=== PATIENT | male | born 1990 | race Hispanic/Latino ===

== ENCOUNTER 2024-11-05 13:55 | Emergency (ER) | payer OTHER, SELFPAY ==
--- NOTE | ~2024-11-05 | CT_ITS ---
EXAMINATION: CT brain wo con DATE: 11/05/2024 14:26 INDICATION: Vision change. Blurry vision. TECHNIQUE: Computed tomography (CT) of the head was performed without intravenous contrast. The mA wa s adjusted according to patient size. Iterative reconstruction technique was employed. The dose-lengt h product was 605.33 mGy-cm. COMPARISON: None FINDINGS: There is no intracranial hemorrhage, acute infarction, or abnormal intracranial mass lesion . The ventricles are normal in size. The orbits are normal. The paranasal sinuses are clear. The mast oid air cells are normal. IMPRESSION: 1. Normal brain. Reviewed, dictated and finalized at location A. DRESSER IMPRESSION: 1. Normal brain.
[2024-11-05 13:59] VITALS: BP 145/56; PULSE 75; RESP 18; TEMP 36.9; O2SAT 99
--- NOTE | 2024-11-05 14:21 | ED.GENADULT ---
HPI - General Adult General Chief complaint: Neuro Symptoms/Deficit Stated complaint: Double vision/lost peripheral vision Time Seen by Provider: 11/05/24 14:07 History of Present Illness HPI narrative: 34-year-old male presenting to the emergency department for evaluation for some vision changes. Patient reports a few weeks ago he fell in his kitchen struck his head and never got evaluated. Patient states today while he was riding an the liver he had some loss of left-sided peripheral vision that lasted about 15 minutes and then resolved. Patient states his vision is back to baseline now patient denies any associated numbness weakness. Patient has no prior history of CVA. Patient denies any current complaints. Patient states he was concern about the vision change in want to make sure was not related to the head trauma. Related Data Allergies Allergy/AdvReac Type Severity Reaction Status Date / Time No Known Allergies Allergy Verified 11/05/24 14:03 Review of Systems Review of Systems: All systems reviewed & are unremarkable except as noted in HPI and below Exam Narrative: APPEARANCE: Well appearing, no pain, no distress, well-nourished. HEAD: normocephalic, atraumatic. EYES: PERRLA/EOMI, conjunctivae clear. NOSE: Normal no drainage EARS:TMS clear with good light reflex. THROAT: Pharynx clear, no exudate. NECK: Supple. No adenopathy, no masses. RESPIRATORY: Airway patent, respirations nonlabored. Clear to auscultation bilaterally, no rales, rhonchi, wheezing. CARDIOVASCULAR: Regular rate and rhythm without murmurs rubs or gallops. ABDOMINAL: Soft, nontender, nondistended, normal bowel sounds MUSCULOSKELETAL: Moves all extremities. Strength/ROM intact, No edema, No calf tenderness. NEURO: Alert. Cranial nerves II through XII intact. 20/20 vision, no loss of peripheral vision, intact neuro exam SKIN: Warm, dry. Normal Color Course Vital Signs Vital signs: Vital Signs Temperature 98.4 F 11/05/24 13:59 Pulse Rate 75 11/05/24 13:59 Respiratory Rate 18 11/05/24 13:59 Blood Pressure 145/56 H 11/05/24 13:59 Pulse Oximetry 99 11/05/24 13:59 Oxygen Delivery Room Air 11/05/24 13:59 Temperature 98.4 F 11/05/24 13:59 Pulse Rate 75 11/05/24 13:59 Respiratory Rate 18 11/05/24 13:59 Blood Pressure 145/56 H 11/05/24 13:59 Pulse Oximetry 99 11/05/24 13:59 Oxygen Delivery Room Air 11/05/24 13:59 Medical Decision Making MDM Narrative Medical decision making narrative: 34-year-old male presenting to the emergency department for evaluation for resolved vision changes. Patient did have a previous head injury so a head CT was ordered. Head CT was negative. Patient remains back at his baseline with no neuro deficit. Differential Diagnosis Differential Diagnosis: Subdural hematoma, subarachnoid hemorrhage, concussion Vital Signs Vital Signs: Vital Signs Temperature 98.4 F 11/05/24 13:59 Pulse Rate 75 11/05/24 13:59 Respiratory Rate 18 11/05/24 13:59 Blood Pressure 145/56 H 11/05/24 13:59 Pulse Oximetry 99 11/05/24 13:59 Oxygen Delivery Room Air 11/05/24 13:59 Temperature 98.4 F 11/05/24 13:59 Pulse Rate 75 11/05/24 13:59 Respiratory Rate 18 11/05/24 13:59 Blood Pressure 145/56 H 11/05/24 13:59 Pulse Oximetry 99 11/05/24 13:59 Oxygen Delivery Room Air 11/05/24 13:59 Imaging Data Radiologist's impression: Impressions Head CT 11/05/24 15:03 IMPRESSION: 1. Normal brain. Discharge Plan Discharge Clinical Impression: Change in vision Patient Disposition: Home, Self-Care Condition: Stable Instructions: Antibiotic Form Additional Instructions: Have close follow-up with your primary care physician. If you have any worsening symptoms then please call or return to the emergency department. Patient Language: Slovak Follow-up/Referrals: PHYSICIAN NOT ON STAFF,NONSTAFF [Non-Staff] -
--- OUTSIDE RECORDS SUMMARY | 2024-11-12 16:11 | XMS_ITS | Continuity of Care Document ---
Author Organization [place] - [facility], [facility] Address [address] [place] [address] Care Team Providers Care Post Office Manager Name Role Phone FAZALMEDARDODALIAMarita TATYANA Primary Care Provider Assessment No assessment recorded. Plan of Treatment Reminders Order Date Submit Date Provider Last Modified By Organization Details Last Modified Time Details Appointments Allerg y Shot 2024 01:40P M Allergy Shots @ [address] [facility] Not available Not available Not available New Patien t Visit 2024 09:00A M Demond Lamar MD Not available Not available Not available Allerg y Shot 2024 04:10P M Allergy Shots @ [address] [facility] Not available Not available Not available Allerg y Shot 2024 01:20P M Allergy Shots @ [address] [facility] Not available Not available Not available Allerg y Shot 2024 03:10P M Allergy Shots @ [address] [facility] Not available Not available Not available Office Visit 2024 03:30P M Eliot Ibarra MD Not available Not available Not available Allerg y Shot 2024 09:40A M Allergy Shots @ [address] [place] Not available Not available Not available Allerg y Shot 2024 03:00P M Allergy Shots @ [address] [place] Not available Not available Not available Allerg y Shot 2024 09:50A M [facility] @ [address] [facility] [place] Not available Not available Not available Lab None record ed. Referral None record ed. Procedures None record ed. Surgeries None record ed. Imaging None record ed. Medication Orders None record ed. Patient TargetsNo targets recorded. Patient InstructionsNo instructions recorded. Reason for Referral None Reported. Problems Name Problem SNOMED Code Status Onset Date Resolution Date Notes Provider Name and Address Organization Details Recorded Time Asthma [id number] Active 022 DEAN Olvera - [facility] 07/30/2022 13:35:40 Problem Notes None recorded. Procedures Surgical History Date Name Laterality Status Provider Name and Address Organization Details Recorded Time 4 Allergy Injection, Recipe completed Nayeli Ratti [place] - [facility] 11/11/2024 13:16:43 4 [place] Allergy Injection, Maintenance, Subsequent Vial, 1 Vial completed Nayeli Ratti [place] - [facility] 11/11/2024 13:19:30 4 Allergy Injection, Recipe completed Nayeli Ratti [place] - [facility] 10/31/2024 13:21:02 4 [place] Allergy Injection, Maintenance, Subsequent Vial, 1 Vial completed Nayeli Ratti [place] - [facility] 10/31/2024 13:24:32 4 Allergy Injection, Recipe completed Caryl Villatoro [place] - [facility] 10/23/2024 14:58:47 4 [place] Allergy Injection, Maintenance, Subsequent Vial, 1 Vial completed Caryl Villatoro [place] - [facility] 10/23/2024 14:59:20 4 Allergy Injection, Recipe completed Gelnn Bhalodia [place] - [facility] 10/15/2024 09:14:08 4 [place] Allergy Injection, Maintenance, Subsequent Vial, 1 Vial completed Glenn Bhalodia [place] - [facility] 10/15/2024 09:16:58 4 Allergy Injection, Recipe completed Caryl Villatoro [place] [facility] 10/02/2024 13:45:06 4 [place] Allergy Injection, Maintenance, Subsequent Vial, 1 Vial completed Caryl Villatoro [place] [facility] 10/02/2024 13:58:38 4 Allergy Injection, Build-up, Initial/New Vial completed Nayeli Ratti [place] - [facility] 09/22/2024 13:22:19 4 Allergy Injection, Recipe completed Nayeli Ratti [place] [facility] 09/22/2024 13:22:19 4 [place] Allergy Injection, Maintenance, Subsequent Vial, 1 Vial completed Nayeli Ratti [place] [facility] 09/22/2024 13:25:00 4 Allergy Injection, Build-up, Initial/New Vial completed Nayeli Ratti [place] - [facility] 09/08/2024 13:14:11 4 Allergy Injection, Recipe completed Nayeli Ratti [place] [facility] 09/08/2024 13:14:11 4 [place] Allergy Injection, Maintenance, Subsequent Vial, 1 Vial completed Nayeli Ratti [place] [facility] 09/08/2024 13:17:01 4 Allergy Injection, Build-up, Initial/New Vial completed Glenn Bhalodia [place] - [facility] 09/03/2024 15:01:22 4 Allergy Injection, Recipe completed Glenn Bhalodia [place] [facility] 09/03/2024 15:01:22 4 [place] Allergy Injection, Maintenance, Subsequent Vial, 1 Vial completed Glenn Bhalodia [place] [facility] 09/03/2024 15:01:45 4 Allergy Injection, Build-up, Initial/New Vial completed Glenn Bhalodia [place] [facility] 08/27/2024 13:47:20 4 Allergy Injection, Recipe completed Glenn Bhalodia [place] - [facility] 08/27/2024 13:47:20 4 [place] Allergy Injection, Maintenance, Subsequent Vial, 1 Vial completed Glenn Bhalodia [place] - [facility] 08/27/2024 13:51:25 4 Allergy Injection, Build-up, Initial/New Vial completed Caryljaun Villatoro [place] - [facility] 08/22/2024 13:10:46 4 Allergy Injection, Recipe completed Caryl Villatoro [place] [facility] 08/22/2024 13:10:46 4 [place] Allergy Injection, Maintenance, Subsequent Vial, 1 Vial completed Caryl Villatoro [place] [facility] 08/22/2024 13:15:34 4 Allergy Injection, Build-up, Initial/New Vial completed Nayeli Ratti [place] [facility] 08/15/2024 13:14:33 4 Allergy Injection, Recipe completed Nayeli Ratti [place] [facility] 08/15/2024 13:14:33 4 [place] Allergy Injection, Maintenance, Subsequent Vial, 1 Vial completed Nayeli Ratti [place] [facility] 08/15/2024 13:18:25 4 Allergy Injection, Build-up, Initial/New Vial completed Nayeli Ratti [place] [facility] 08/08/2024 13:14:58 4 Allergy Injection, Recipe completed Nayeli Ratti [place] [facility] 08/08/2024 13:14:58 4 [place] Allergy Injection, Maintenance, Subsequent Vial, 1 Vial completed Nayeli Ratti [place] [facility] 08/08/2024 13:26:51 4 Allergy Injection, Build-up, Initial/New Vial completed Dayana Zipse [place] [facility] 07/29/2024 17:07:44 4 Allergy Injection, Recipe completed Dayana Zipse [place] [facility] 07/29/2024 17:08:27 4 [place] Allergy Injection, Maintenance, Subsequent Vial, 1 Vial completed Dayana Zipse [place] [facility] 07/29/2024 17:11:29 4 Allergy Injection, Build-up, Initial/New Vial completed Nayeli Ratti [place] [facility] 07/25/2024 13:00:11 4 Allergy Injection, Recipe completed Nayeli Ratti [place] [facility] 07/25/2024 12:54:22 4 Allergy Injection, Build-up, Initial/New Vial completed Nayeli Ratti [place] [facility] 07/17/2024 15:03:24 4 Allergy Injection, Recipe completed Nayeli Ratti [place] [facility] 07/17/2024 15:00:09 4 Allergy Injection, Build-up, Initial/New Vial completed Pieter Noel [place] [facility] 07/10/2024 14:01:31 4 Allergy Injection, Recipe completed Pieter Noel [place] [facility] 07/10/2024 13:58:56 4 Allergy Injection, Build-up, Initial/New Vial completed Nayeli Ratti [place] [facility] 07/03/2024 15:09:04 4 Allergy Injection, Recipe completed Nayeli Ratti [place] [facility] 07/03/2024 15:04:59 4 Allergy Injection, Build-up, Initial/New Vial completed Nayeli Ratti [place] [facility] 06/02/2024 13:13:08 4 Allergy Injection, Recipe completed Nayeli Ratti [place] [facility] 06/02/2024 13:06:17 4 Allergy Injection, Build-up, Initial/New Vial completed Nayeli Ratti [place] [facility] 05/30/2024 13:23:20 4 Allergy Injection, Recipe completed Nayeli Ratti [place] [facility] 05/30/2024 13:19:58 4 Allergy Injection, Build-up, Initial/New Vial completed Nayeli Ratti [place] [facility] 05/22/2024 09:53:48 4 Allergy Injection, Recipe completed Nayeli Ratti [place] [facility] 05/22/2024 09:50:32 4 Allergy Injection, Build-up, Initial/New Vial completed Nayeli Ratti [place] [facility] 05/08/2024 10:10:23 4 Allergy Injection, Recipe completed Nayeli Ratti [place] [facility] 05/08/2024 10:07:32 4 Allergy Injection, Build-up, Initial/New Vial completed Nayeli Ratti [place] [facility] 05/01/2024 10:55:39 4 Allergy Injection, Recipe completed Nayeli Ratti [place] [facility] 05/01/2024 10:53:00 4 Allergy Injection, Build-up, Initial/New Vial completed Nayeli Ratti [place] [facility] 04/15/2024 13:32:21 4 Allergy Injection, Recipe completed Nayeli Ratti [place] [facility] 04/15/2024 13:29:48 4 Allergy Injection, Build-up, Initial/New Vial completed Nayeli Ratti [place] [facility] 04/10/2024 09:41:47 4 Allergy Injection, Recipe completed Nayeli Ratti [place] [facility] 04/10/2024 09:39:04 4 Allergy Injection, Build-up, Initial/New Vial completed Glenn Bhalodia [place] [facility] 04/02/2024 08:51:41 4 Allergy Injection, Recipe completed Glenn Bhalodia [place] [facility] 04/02/2024 08:49:01 4 Allergy Injection, Build-up, Initial/New Vial completed Nayeli Ratti [place] [facility] 03/24/2024 15:27:16 4 Allergy Injection, Recipe completed Nayeli Ratti [place] [facility] 03/24/2024 15:19:09 4 Allergy Injection, Build-up, Initial/New Vial completed Nayeli Ratti [place] [facility] 03/13/2024 09:45:22 4 Allergy Injection, Recipe completed Nayeli Ratti [place] [facility] 03/13/2024 09:41:07 4 Allergy Injection, Build-up, Initial/New Vial completed Glenn Bhalodia [place] [facility] 03/05/2024 08:47:21 4 Allergy Injection, Recipe completed Lgenn Bhalodia [place] [facility] 03/05/2024 08:41:42 4 Allergy Injection, Build-up, Initial/New Vial completed Aidee Abel [place] - [facility] 02/28/2024 09:37:48 4 Allergy Injection, Recipe completed Nayeli Ratti [place] [facility] 02/28/2024 09:34:24 4 Allergy Injection, Build-up, Initial/New Vial completed Glenn Bhalodia [place] [facility] 02/20/2024 08:12:30 4 Allergy Injection, Recipe completed Glenn Bhalodia [place] [facility] 02/20/2024 08:05:30 4 Allergy Injection, Build-up, Initial/New Vial completed Glenn Bhalodia [place] [facility] 02/06/2024 08:38:48 4 Allergy Injection, Recipe completed Glenn Bhalodia [place] [facility] 02/06/2024 08:35:01 4 Allergy Injection, Build-up, Initial/New Vial completed Tyler Rollins [place] [facility] 01/31/2024 12:26:22 4 Allergy Injection, Recipe completed Aidee Hernandez Ratti [place] - [facility] 01/31/2024 09:38:12 4 Allergy Injection, Build-up, Initial/New Vial completed Glenn Bhalodia [place] [facility] 01/24/2024 09:48:10 4 Allergy Injection, Recipe completed Glenn Bhalodia [place] [facility] 01/24/2024 09:42:59 4 Allergy Injection, Build-up, Initial/New Vial completed Maldonado Escalante [place] [facility] 01/17/2024 09:40:31 4 Allergy Injection, Recipe completed Maldonado Kashifeter [place] - [facility] 01/17/2024 09:36:01 4 Allergy Injection, Build-up, Initial/New Vial completed Caryl Villatoro [place] [facility] 01/10/2024 14:08:44 4 Allergy Injection, Recipe completed Caryl Villatoro [place] [facility] 01/10/2024 14:06:57 4 Allergy Injection, Build-up, Initial/New Vial completed Glenn Bhalodia [place] [facility] 12/27/2023 09:55:42 4 Allergy Injection, Recipe completed Glenn Bhalodia [place] [facility] 12/27/2023 09:50:02 4 Allergy Injection, Build-up, Initial/New Vial completed Glenn Bhalodia [place] [facility] 12/18/2023 13:36:05 4 Allergy Injection, Recipe completed Glenn Bhalodia [place] [facility] 12/18/2023 13:32:01 4 Allergy Injection, Build-up, Initial/New Vial completed Glenn Bhalodia [place] [facility] 12/12/2023 08:45:41 4 Allergy Injection, Recipe completed Glenn Bhalodia [place] [facility] 12/12/2023 08:41:45 4 Allergy Injection, Build-up, Initial/New Vial completed Caryl Villatoro [place] - [facility] 12/06/2023 09:46:16 4 Allergy Injection, Recipe completed Caryl Villatoro [place] - [facility] 12/06/2023 09:45:47 4 Allergy Injection, Build-up, Initial/New Vial completed Glenn Bhalodia [place] - [facility] 11/29/2023 09:37:17 4 Allergy Injection, Recipe completed Glenn Bhalodia [place] - [facility] 11/29/2023 09:32:56 4 Allergy Injection, Build-up, Initial/New Vial completed Caryl Villatoro [place] [facility] 11/22/2023 10:28:27 4 Allergy Injection, Recipe completed Caryl Duranllana [place] - [facility] 11/22/2023 10:26:36 4 Allergy Injection, Build-up, Initial/New Vial completed Caryl Duranllana [place] - [facility] 11/15/2023 15:37:47 4 Allergy Injection, Recipe completed Caryl Duranllana [place] - [facility] 11/15/2023 15:31:59 3 Allergy Injection, Build-up, Initial/New Vial completed Dayana MORAN - [facility] 10/30/2023 18:27:24 3 Allergy Injection, Recipe completed Dayana Valle [place] - [facility] 10/30/2023 18:26:31 1 Other completed Malvin MOR[place] - [facility] 10/18/2023 10:17:32 Imaging Results None recorded. Procedure Notes None recorded. Medical Equipment None Reported. Allergies No known drug allergies Medications Name Sig Start Date Stop Date Status Note LastModified by Organization Details LastModified Time prednisone 10 mg tablet active Not Available Not Available Not Available famotidine 40 mg tablet active Not Available Not Available Not Available prednisone 20 mg tablet Take 2 tablets every day by oral route for 5 days. 2021 active Not Available Not Available Not Avai lable Advair Diskus 100 mcg-50 mcg/dose powder for inhalation Inhale 1 puff twice a day by inhalation route for 14 days. 2021 active Not Available Not Available Not Avai lable methylpredni solone 4 mg tablets in a dose pack active Not Available Not Available No t Available albuterol sulfate HFA 90 mcg/actuatio n aerosol inhaler Inhale 2 puffs every 4 hours by inhalation route as needed. active Not Available Not Available No t Available albuterol sulfate active Not Available Not Available Not Available Advair HFA 115 mcg-21 mcg/actuatio n aerosol inhaler active Not Available Not Available Not Available Vitals None Recorded Social History Question Answer Notes LastModified by Organizat ion Details LastModified Time Tobacco Smoking Status Never Smoker DEAN Olvera - [facility] 07/30/2022 13:35:51 Do You Or Have You Ever Used E-cigarettes Or Vape? 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 Yes [email or web address] Information not available 10/18/2023 Cesar In Bedroom Bare Floor [email or web address] Information not available 10/18/2023 Pillows In Bedroom Synthetic [email or web address] Information not available 10/18/2023 Mattress Foam [email or web address] Information no t available 10/18/2023 Cesar In Rest Of House Hard Wood [email or web address] Information not available 10/18/2023 Do You Or Have You Ever Used Any Other Forms Of Tobacco Or Nicotine? No Information not available 10/18/2023 Sex: Unknown Functional Status None recorded. Mental Status None recorded. Family History Nothing Reported. Medical History No medical history recorded. Past Encounters Encounter ID Performer Location Encounter Start Date Encounter Closed Date Diagnosis/Indication Diagnosis SNOMED-CT Code Diagnosis ICD10 Code [id number] Eliot Ibarra MD [place] [facility] [address] [place] [address],[address] [place] [id number] 10/02/2024 13:43:22 10/03/2024 11:02:17 Allergic rhinitis caused by pollen 74073514 J30.1 Allergic r hinitis caused by animal dander 948800991 J30.81 [id number] Fifi Rocha MD [place] [address] [place] [address],[address] [place] [id number] 1 10/15/2024 09:07:15 10/15/2024 10:43:34 Allergic rhinitis caused by pollen 78297987 J30.1 Allergic r hinitis caused by animal dander 718687342 J30.81 [id number] Eliot Ibarra MD [facility] [place] [address],[address] [place] [address] 10/23/2024 14:53:48 10/24/2024 11:41:57 Allergic rhinitis caused by pollen 35375376 J30.1 Allergic r hinitis caused by animal dander 836900504 J30.81 [id number] Fifi Rocha MD [place] [address] [place] [address],[address] [place] [address] 10/31/2024 13:18:13 10/31/2024 14:03:29 Allergic rhinitis caused by pollen 40227993 J30.1 Allergic r hinitis caused by animal dander 873949937 J30.81 Health Concerns Section Related Observation LastModified by Organization Detai ls LastModified Time None Recorded Concern Status LastModified by Organization Details LastModified Time None Recorded Payers Encounter Date Sequence Insurance Name Policy Number Policy Gaspar Covered Member ID Gaspar Member ID Guarantor Name 10/31/2024 1 [employer] - CHOICE (POS II) [id number] Augustus Heaton [id number] Augustus Heaton
--- OUTSIDE RECORDS SUMMARY | 2024-11-12 16:11 | XMS_ITS | Data Portability ---
Author Organization [place] - .[facility], [facility] Address [address] [place] [address] Care Team Providers Care Veneer Taper Name Role Phone FAZALMEDARDODALIAMarita TATYANA Primary Care Provider Assessment No assessment recorded. Plan of Treatment Reminders Order Date Submit Date Provider Last Modified By Organization Details Last Modified Time Details Appointments Allerg y Shot 2024 01:40P M Allergy Shots @ [address] [place] Not available Not available Not available New Patien t Visit 2024 09:00A M Demond Lamar MD Not available Not available Not available Allerg y Shot 2024 04:10P M Allergy Shots @ [address] [place] Not available Not available Not available Allerg y Shot 2024 01:20P M Allergy Shots @ [address] [place] Not available Not available Not available Allerg y Shot 2024 03:10P M Allergy Shots @ [address] [place] Not available Not available Not available Office Visit 2024 03:30P M Eliot Ibarar MD Not available Not available Not available Allerg y Shot 2024 09:40A M Allergy Shots @ [address] [place] Not available Not available Not available Allerg y Shot 2024 03:00P M Allergy Shots @ [address] [place] Not available Not available Not available Allerg y Shot 2024 09:50A M Allergy Shots @ [address] [place] Not available Not available Not available Lab [...] and Address Organization Details Recorded Time Asthma [id number] Active 022 DEAN Olvera - .[facility] 07/30/2022 13:35:40 Problem Notes None recorded. Procedures Surgical History Date Name Laterality Status Provider Name and Address Organization Details Recorded Time 4 Allergy Injection, Recipe completed Nayeli Ratti [place] - .[facility] 11/11/2024 13:16:43 4 [place] Allergy Injection, Maintenance, Subsequent Vial, 1 Vial completed [place]ayeli Ratti [place] - .[facility] 11/11/2024 13:19:30 4 Allergy Injection, Recipe completed [place]ayeli [place]atti [place] - [place] 10/31/2024 13:21:02 4 [place] Allergy Injection, Maintenance, Subsequent Vial, 1 Vial completed [place]ayeli Ratti [place] - [place] 10/31/2024 13:24:32 4 Allergy Injection, Recipe completed Caryl Villatoro [place] - .[facility] 10/23/2024 14:58:47 4 [place] Allergy Injection, Maintenance, Subsequent Vial, 1 Vial completed Caryl Villatoro [place] 10/23/2024 14:59:20 4 Allergy Injection, Recipe completed Glenn Bhalodia [place] - .[facility] 10/15/2024 09:14:08 4 [place] Allergy Injection, Maintenance, Subsequent Vial, 1 Vial completed Glenn Bhalodia [place] - .[facility] 10/15/2024 09:16:58 4 Allergy Injection, Recipe completed Caryl Villatoro [place] - [place] 10/02/2024 13:45:06 4 [place] Allergy Injection, Maintenance, Subsequent Vial, 1 Vial completed Caryl Villatoro [place] 10/02/2024 13:58:38 4 Allergy Injection, Build-up, Initial/New Vial completed [place]ayeli Ratti [place] - .[facility] 09/22/2024 13:22:19 4 Allergy Injection, Recipe completed [place]ayeli Ratti [place] 09/22/2024 13:22:19 4 [place] Allergy Injection, Maintenance, Subsequent Vial, 1 Vial completed [place]ayeli Ratti [place] 09/22/2024 13:25:00 4 Allergy Injection, Build-up, Initial/New Vial completed [place]ayeli Ratti [place] 09/08/2024 13:14:11 4 Allergy Injection, Recipe completed [place]ayeli [place]atti [place] 09/08/2024 13:14:11 4 [place] Allergy Injection, Maintenance, Subsequent Vial, 1 Vial completed [place]ayeli Ratti [place] 09/08/2024 13:17:01 4 Allergy Injection, Build-up, Initial/New Vial completed Glenn Bhalodia [place] - [place] 09/03/2024 15:01:22 4 Allergy Injection, Recipe completed Glenn Bhalodia [place] - [place] 09/03/2024 15:01:22 4 [place] Allergy Injection, Maintenance, Subsequent Vial, 1 Vial completed Glenn Bhalodia [place] 09/03/2024 15:01:45 4 Allergy Injection, Build-up, Initial/New Vial completed Glenn Bhalodia [place] - [place] 08/27/2024 13:47:20 4 Allergy Injection, Recipe completed Glenn Bhalodia [place] - [place] 08/27/2024 13:47:20 4 [place] Allergy Injection, Maintenance, Subsequent Vial, 1 Vial completed Glenn Bhalodia [place] 08/27/2024 13:51:25 4 Allergy Injection, Build-up, Initial/New Vial completed Caryl Villatoro [place] 08/22/2024 13:10:46 4 Allergy Injection, Recipe completed Caryl Villatoro [place] 08/22/2024 13:10:46 4 [place] Allergy Injection, Maintenance, Subsequent Vial, 1 Vial completed Caryl Villatoro [place] 08/22/2024 13:15:34 4 Allergy Injection, Build-up, Initial/New Vial completed [place]ayeli Ratti [place] 08/15/2024 13:14:33 4 Allergy Injection, Recipe completed [place]ayeli R[place] 08/15/2024 13:14:33 4 [place] Allergy Injection, Maintenance, Subsequent Vial, 1 Vial completed [place]ayeli [place]atti [place] 08/15/2024 13:18:25 4 Allergy Injection, Build-up, Initial/New Vial completed [place]ayeli Ratti [place] 08/08/2024 13:14:58 4 Allergy Injection, Recipe completed [place]ayeli Ratti [place] 08/08/2024 13:14:58 4 [place] Allergy Injection, Maintenance, Subsequent Vial, 1 Vial completed [place]ayeli Ratti [place] 08/08/2024 13:26:51 4 Allergy Injection, Build-up, Initial/New Vial completed Dayana Zipse [place] 07/29/2024 17:07:44 4 Allergy Injection, Recipe completed Dayana Zipse [place] 07/29/2024 17:08:27 4 [place] Allergy Injection, Maintenance, Subsequent Vial, 1 Vial completed Dayana Zipse [place] 07/29/2024 17:11:29 4 Allergy Injection, Build-up, Initial/New Vial completed [place]ayeli [place]atti [place] 07/25/2024 13:00:11 4 Allergy Injection, Recipe completed [place]ayeli [place] 07/25/2024 12:54:22 4 Allergy Injection, Build-up, Initial/New Vial completed [place]eli [place] 07/17/2024 15:03:24 4 Allergy Injection, Recipe completed [place]ay[place] Ratti [place] 07/17/2024 15:00:09 4 Allergy Injection, Build-up, Initial/New Vial completed Pieter Noel [place] 07/10/2024 14:01:31 4 Allergy Injection, Recipe completed Pieter Noel [place] 07/10/2024 13:58:56 4 Allergy Injection, Build-up, Initial/New Vial completed [place]eli [place] 07/03/2024 15:09:04 4 Allergy Injection, Recipe completed [place]ayeli [place]atti [place] 07/03/2024 15:04:59 4 Allergy Injection, Build-up, Initial/New Vial completed [place]ayeli [place] 06/02/2024 13:13:08 4 Allergy Injection, Recipe completed [place]ayeli Ratti [place] 06/02/2024 13:06:17 4 Allergy Injection, Build-up, Initial/New Vial completed [place]ayeli [place]atti [place] 05/30/2024 13:23:20 4 Allergy Injection, Recipe completed [place]ayeli Ratti [place] 05/30/2024 13:19:58 4 Allergy Injection, Build-up, Initial/New Vial completed [place]ayeli [place] 05/22/2024 09:53:48 4 Allergy Injection, Recipe completed [place]ayeli [place] 05/22/2024 09:50:32 4 Allergy Injection, Build-up, Initial/New Vial completed [place]ayeli Ratti [place] 05/08/2024 10:10:23 4 Allergy Injection, Recipe completed [place]ayeli R[place] 05/08/2024 10:07:32 4 Allergy Injection, Build-up, Initial/New Vial completed [place]ayeli [place] 05/01/2024 10:55:39 4 Allergy Injection, Recipe completed [place]ayeli [place]atti [place] 05/01/2024 10:53:00 4 Allergy Injection, Build-up, Initial/New Vial completed [place]ayeli [place] 04/15/2024 13:32:21 4 Allergy Injection, Recipe completed [place]ayeli [place]atti [place] 04/15/2024 13:29:48 4 Allergy Injection, Build-up, Initial/New Vial completed [place]ayeli [place] 04/10/2024 09:41:47 4 Allergy Injection, Recipe completed [place]ayeli [place] 04/10/2024 09:39:04 4 Allergy Injection, Build-up, Initial/New Vial completed Glenn Bhalodia [place] 04/02/2024 08:51:41 4 Allergy Injection, Recipe completed Glenn Bhalodia [place] - [place] 04/02/2024 08:49:01 4 Allergy Injection, Build-up, Initial/New Vial completed [place]ayeli [place] 03/24/2024 15:27:16 4 Allergy Injection, Recipe completed [place]ayeli Ratti [place] 03/24/2024 15:19:09 4 Allergy Injection, Build-up, Initial/New Vial completed [place]ayeli [place] 03/13/2024 09:45:22 4 Allergy Injection, Recipe completed [place]ayeli [place] 03/13/2024 09:41:07 4 Allergy Injection, Build-up, Initial/New Vial completed Glenn Bhalodia [place] - [place] 03/05/2024 08:47:21 4 Allergy Injection, Recipe completed Glenn Bhalodia [place] 03/05/2024 08:41:42 4 Allergy Injection, Build-up, Initial/New Vial completed [place] 02/28/2024 09:37:48 4 Allergy Injection, Recipe completed [place]ayeli [place]atti [place] 02/28/2024 09:34:24 4 Allergy Injection, Build-up, Initial/New Vial completed Glenn Bhalodia [place] - [place] 02/20/2024 08:12:30 4 Allergy Injection, Recipe completed Glenn Bhalodia [place] 02/20/2024 08:05:30 4 Allergy Injection, Build-up, Initial/New Vial completed Glenn Bhalodia [place] 02/06/2024 08:38:48 4 Allergy Injection, Recipe completed Glenn Bhalodia [place] 02/06/2024 08:35:01 4 Allergy Injection, Build-up, Initial/New Vial completed Tyler Rollins [place] - .[facility] 01/31/2024 12:26:22 4 Allergy Injection, Recipe completed [place]ayeli [place]atti [place] 01/31/2024 09:38:12 4 Allergy Injection, Build-up, Initial/New Vial completed Glenn Bhalodia [place] 01/24/2024 09:48:10 4 Allergy Injection, Recipe completed Glenn Bhalodia [place] - [place] 01/24/2024 09:42:59 4 Allergy Injection, Build-up, Initial/New Vial completed Maldonado Escalante [place] - .[facility] 01/17/2024 09:40:31 4 Allergy Injection, Recipe completed Maldonado Ava [place] - [place] 01/17/2024 09:36:01 4 Allergy Injection, Build-up, Initial/New Vial completed Caryl [place]atoro [place] 01/10/2024 14:08:44 4 Allergy Injection, Recipe completed Caryl Villatoro [place] 01/10/2024 14:06:57 4 Allergy Injection, Build-up, Initial/New Vial completed Glenn Bhalodia [place] 12/27/2023 09:55:42 4 Allergy Injection, Recipe completed Glenn Bhalodia [place] 12/27/2023 09:50:02 4 Allergy Injection, Build-up, Initial/New Vial completed Glenn Bhalodia [place] - [place] 12/18/2023 13:36:05 4 Allergy Injection, Recipe completed Glenn Bhalodia [place] - [place] 12/18/2023 13:32:01 4 Allergy Injection, Build-up, Initial/New Vial completed Glenn Bhalodia [place] - [place] 12/12/2023 08:45:41 4 Allergy Injection, Recipe completed Glenn Bhalodia [place] - [place] 12/12/2023 08:41:45 4 Allergy Injection, Build-up, Initial/New Vial completed Caryl [place]atoro [place] 12/06/2023 09:46:16 4 Allergy Injection, Recipe completed Caryl [place]atoro [place] 12/06/2023 09:45:47 4 Allergy Injection, Build-up, Initial/New Vial completed Glenn Bhalodia [place] - [place] 11/29/2023 09:37:17 4 Allergy Injection, Recipe completed Glenn Bhalodia [place] - [place] 11/29/2023 09:32:56 4 Allergy Injection, Build-up, Initial/New Vial completed Caryl Villatoro [place] 11/22/2023 10:28:27 4 Allergy Injection, Recipe completed Caryl Villatoro [place] - [place] 11/22/2023 10:26:36 4 Allergy Injection, Build-up, Initial/New Vial completed Caryl Villatoro [place] - [place] 11/15/2023 15:37:47 4 Allergy Injection, Recipe completed Caryl Villatoro [place] - [place] 11/15/2023 15:31:59 3 Allergy Injection, Build-up, Initial/New Vial completed Dayana MORAN - .[facility] 10/30/2023 18:27:24 3 Allergy Injection, Recipe completed Dayana MORAN - .[facility] 10/30/2023 18:26:31 1 Other completed Malvin MORAN - .[facility] 10/18/2023 10:17:32 Imaging Results None recorded. [...] Smoking Status Never Smoker DEAN Olvera - .[facility] 07/30/2022 13:35:51 Do You Or Have You Ever Used E-cigarettes Or Vape? 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 Yes Information not available 10/18/2023 Cesar In Bedroom Bare Floor [email or web address] Information not available 10/18/2023 Pillows In Bedroom Synthetic [email or web address] Information not available 10/18/2023 Mattress Foam [email or web address] Information no t available 10/18/2023 Cesar In Rest Of House Hard Wood Information not available 10/18/2023 Do You Or Have You Ever Used Any Other Forms Of Tobacco Or Nicotine? No Information not available 10/18/2023 Sex: Unknown Functional Status None recorded. Mental Status None recorded. Family History Nothing Reported. Medical History No medical history recorded. Past Encounters Encounter ID Performer Location Encounter Start Date Encounter Closed Date Diagnosis/Indication Diagnosis SNOMED-CT Code Diagnosis ICD10 Code [id number] Maxwell Oh MD [facility] [address] [address] 07/30/2022 13:14:09 07/30/2022 13:39:12 Asthma 101448843 J45.909 [id number] Eliot Ibarra MD [place] [facility] [address] [facility],[address] [place] [address] 10/18/2023 10:15:46 10/18/2023 16:19:35 Allergic asthma 577942849 J45.909 Allergic r hinitis caused by pollen 21629036 J30.1 [id number] Eliot Geronimoflchelle_5 [employer] [address] [facility],[address] [place] [id number] 1 10/24/2023 18:35:22 10/30/2023 18:15:52 [id number] Eliot Geronimoflchelle_5 [facility] [facility] [address] [facility],[address] [place] [id number] 1 11/15/2023 15:30:33 11/17/2023 08:56:03 [id number] Eliot Camara_5 [address] [address] [place] [address],[address] [place] [id number] 1 11/22/2023 10:23:21 11/23/2023 09:00:23 Allergic rhinitis caused by pollen [id number] J30.1 [id number] Eliot Camara_Sharon [employer] [address] [facility],[address] [place] [address] 11/29/2023 09:29:22 11/30/2023 11:21:58 Allergic rhinitis caused by pollen [id number] J30.1 [id number] Eliot Camara_5 [address] [address] [place] [address],[address] [place] [id number] 1 12/06/2023 09:27:31 12/07/2023 08:46:35 Allergic rhinitis caused by pollen 22948697 J30.1 [id number] Negra Geronimoflchelle_5 [employer] [address] [facility],[address] [place] [address] 12/12/2023 08:34:37 12/12/2023 10:28:09 Allergic rhinitis caused by pollen 89781765 J30.1 [id number] Negra Camara_5 [address] [address] [place] [address],[address] [place] [id number] 1 12/18/2023 13:18:23 12/18/2023 16:32:39 Allergic rhinitis caused by pollen 83111523 J30.1 [id number] Eliot Camara_5 [facility] [address] [facility],[address] [place] [address] 12/27/2023 09:47:11 12/27/2023 16:04:37 Allergic rhinitis caused by pollen 86195540 J30.1 [id number] Elito Robertson [employer] [address] [facility],[address] [place] [address] 01/10/2024 14:02:03 01/11/2024 08:16:01 Allergic rhinitis caused by pollen [id number] J30.1 [id number] Eliot Robertson [facility] [address] [facility],[address] [place] [id number] 1 01/17/2024 09:33:48 01/18/2024 09:44:41 Allergic rhinitis caused by pollen [id number] J30.1 [id number] Eliot Camara_Sharon [employer] [address] [facility],[address] [place] [id number] 1 01/24/2024 09:32:14 01/25/2024 08:48:43 Allergic rhinitis caused by pollen 39700588 J30.1 [id number] Eliot Camara_Sharon [employer] [address] [facility],[address] [place] [address] 01/31/2024 09:33:09 01/31/2024 12:29:36 Allergic rhinitis caused by pollen [id number] J30.1 [id number] Negra Camara_Sharon [employer] [address] [facility],[address] [place] [address] 02/06/2024 08:32:41 02/06/2024 13:32:49 Allergic rhinitis caused by pollen [id number] J30.1 [id number] Negra Kartan MD [place] [employer] [address] [facility] [place],[address] [address] 02/20/2024 08:01:33 02/20/2024 11:16:36 Allergic rhinitis caused by pollen 74908007 J30.1 [id number] Eliot Ibarra MD [place]5 [employer] [address] [facility],[address] [place] [id number] 1 02/28/2024 09:30:30 02/28/2024 10:10:13 Allergic rhinitis caused by pollen [id number] J30.1 [id number] Negra Camara_5 [employer] [address] [facility],[address] [place] [id number] 1 03/05/2024 08:37:07 03/05/2024 10:58:40 Allergic rhinitis caused by pollen [id number] J30.1 [id number] Luigi Camara_Sharon [employer] [address] [facility],[address] [place] [address] 03/13/2024 09:35:23 03/14/2024 08:05:11 Allergic rhinitis caused by pollen [id number] J30.1 [id number] Luigi Camara_Sharon [employer] [address] [facility],[address] [place] [address] 03/24/2024 15:11:17 03/25/2024 13:33:05 Allergic rhinitis caused by pollen [id number] J30.1 [id number] Negra Camara_5 [employer] [address] [facility],[address] [place] [address] 04/02/2024 08:43:44 04/02/2024 10:08:42 Allergic rhinitis caused by pollen [id number] J30.1 [id number] Luigi Camara_Sharon [employer] [address] [facility],[address] [place] [address] 04/10/2024 09:29:42 04/10/2024 10:59:56 Allergic rhinitis caused by pollen [id number] J30.1 [id number] Negra Slater MD [place]_5 [facility] [address] [facility],[address] [place] [id number] 1 04/15/2024 13:24:47 04/15/2024 14:08:03 Allergic rhinitis caused by pollen [id number] J30.1 [id number] Eliot Geronimoflchelle_5 [employer] [address] [facility],[address] [place] [id number] 1 05/01/2024 10:24:46 05/02/2024 11:29:31 Allergic rhinitis caused by pollen [id number] J30.1 [id number] Luigi Camara_Sharon [address] [address] [place] [address],[address] [place] [id number] 1 05/08/2024 10:02:46 05/09/2024 08:21:17 Allergic rhinitis caused by pollen [id number] J30.1 [id number] Eliot Geronimoflchelle_Sharon [employer] [address] [place] [address],[address] [place] [id number] 1 05/22/2024 09:39:09 05/22/2024 12:06:24 Allergic rhinitis caused by pollen [id number] J30.1 [id number] Luigi Camara_Sharon [address] [address] [place] [address],[address] [place] [id number] 1 05/30/2024 13:08:49 05/31/2024 08:30:39 Allergic rhinitis caused by pollen 92393515 J30.1 [id number] Luigi Camara_Sharon [address] [address] [place] [address],[address] [place] [id number] 1 06/02/2024 13:04:13 06/03/2024 08:46:13 Allergic rhinitis caused by pollen 34514812 J30.1 [id number] Luigi Camara_Sharon [facility] [address] [facility],[address] [address] 07/03/2024 15:01:37 07/04/2024 12:36:55 Allergic rhinitis caused by pollen 47701033 J30.1 [id number] Luigi Geronimoflchelle_5 [employer] [address] [facility],[address] [address] 07/10/2024 13:57:08 07/11/2024 09:16:17 Allergic rhinitis caused by pollen 58245030 J30.1 [id number] Luigi Camara_Sharon [employer] [address] [facility],[address] [place] [address] 07/17/2024 14:24:49 07/21/2024 12:20:09 Allergic rhinitis caused by pollen [id number] J30.1 [id number] Luigi Camara_Sharon [employer] [address] [facility],[address] [address] 07/25/2024 12:51:06 07/28/2024 10:45:55 Allergic rhinitis caused by pollen 72044615 J30.1 [id number] Eliot Geronimoflchelle_5 [employer] [address] [facility],[address] [place] [address] 07/29/2024 17:06:43 07/31/2024 08:55:49 [id number] Fifi Geronimoflchelle_Sharon [employer] [address] [facility],[address] [address] 08/08/2024 13:09:14 08/11/2024 11:43:54 Allergic rhinitis caused by pollen 06755145 J30.1 Allergic r hinitis caused by animal dander 188544153 J30.81 [id number] Luigi Geronimoflchelle_5 [employer] [address] [facility],[address] [address] 08/15/2024 13:08:06 08/18/2024 13:35:45 Allergic rhinitis caused by pollen 24956905 J30.1 Allergic r hinitis caused by animal dander 359249510 J30.81 [id number] Fifi Camara_5 [address] [address] [place] [address],[address] [place] [id number] 1 08/22/2024 13:07:02 08/23/2024 07:54:07 Allergic rhinitis caused by pollen 88296927 J30.1 Allergic r hinitis caused by animal dander [id number] J30.81 [id number] Fifi Camara_5 [address] [address] [place] [address],[address] [place] [id number] 1 08/27/2024 13:45:07 08/27/2024 14:54:56 Allergic rhinitis caused by pollen 94850502 J30.1 Allergic r hinitis caused by animal dander [id number] J30.81 [id number] Fifi Caamra_5 [address] [address] [place] [address],[address] [place] [id number] 1 09/03/2024 14:53:13 09/03/2024 15:23:03 Allergic rhinitis caused by pollen 44054147 J30.1 Allergic r hinitis caused by animal dander 411351244 J30.81 [id number] Luigi Camara_5 [address] [address] [place] [address],[address] [place] [id number] 1 09/08/2024 13:13:25 09/09/2024 08:35:19 Allergic rhinitis caused by pollen 96014925 J30.1 Allergic r hinitis caused by animal dander [id number] J30.81 [id number] Luigi Camara_5 [address] [address] [place] [address],[address] [place] [id number] 1 09/22/2024 13:19:36 09/22/2024 14:47:13 Allergic rhinitis caused by pollen 68512725 J30.1 Allergic r hinitis caused by animal dander [id number] J30.81 [id number] Eliot Camara_5 [employer] [address] [facility],[address] [place] [id number] 1 10/02/2024 13:43:22 10/03/2024 11:02:17 Allergic rhinitis caused by pollen [id number] J30.1 Allergic r hinitis caused by animal dander [id number] J30.81 [id number] Fifi Camara_Sharon 74[facility]A [facility] [address] [facility],[address] [place] [id number] 1 10/15/2024 09:07:15 10/15/2024 10:43:34 Allergic rhinitis caused by pollen 05874663 J30.1 Allergic r hinitis caused by animal dander 113350737 J30.81 [id number] Eliot Camara_5 74[facility] [address] [facility],[address] [place] [id number] 1 10/23/2024 14:53:48 10/24/2024 11:41:57 Allergic rhinitis caused by pollen 75773722 J30.1 Allergic r hinitis caused by animal dander 272414789 J30.81 [id number] Fifi Camara_Sharon 74[facility] [address] [facility],[address] [place] [id number] 1 10/31/2024 13:18:13 10/31/2024 14:03:29 Allergic rhinitis caused by pollen 77090286 J30.1 Allergic r hinitis caused by animal dander 730990539 J30.81 [id number] Eliot Camara_5 74[facility] [address] [facility],[address] [place] [id number] 1 11/11/2024 13:15:23 11/11/2024 13:15:46 Allergic rhinitis caused by pollen 56232547 J30.1 Allergic r hinitis caused by animal dander 536207654 J30.81 Health Concerns Section Related Observation LastModified by Organization Detai ls LastModified Time None Recorded Concern Status LastModified by Organization Details LastModified Time None Recorded Advance Directives Directive None Recorded Payers Encounter Date Sequence Insurance Name Policy Number Policy Gaspar Covered Member ID Gaspar Member ID Guarantor Name 10/02/2024 1 [employer] - CHOICE (POS II) [id number] Augustus Sudarshan [id number] Augustus Sudarshan 10/15/2024 1 [employer] - CHOICE (POS II) [id number] Augustus Sudarshan [id number] Augustus Sudarshan 10/23/2024 1 [employer] - CHOICE (POS II) [id number] Augustus Sudarshan [id number] Augustus Sudarshan 10/31/2024 1 [employer] - CHOICE (POS II) [id number] Augustus Sudarshan [id number] Augustus Sudarshan 11/11/2024 1 [employer] - CHOICE (POS II) [id number] Augustus Sudarshan [id number] Augustus Sudarshan
--- OUTSIDE RECORDS SUMMARY | 2024-11-12 16:12 | XMS_ITS | Continuity of Care Document ---
Author Organization [place] - .[facility], [place]_[facility] Address [address] [place] [address] Care Team Providers Care Commercial Loan Assistant Name Role Phone FAZALMEDARDODALIAMarita TATYANA Primary Care Provider Assessment No assessment recorded. Plan of Treatment Reminders Order Date Submit Date Provider Last Modified By Organization Details Last Modified Time Details Appointments Allerg y Shot 2024 01:40P M Allergy Shots @ [address] [facility] Not available Not available Not available New Patien t Visit 2024 09:00A M Demond Lamar MD Not available Not available Not available Allerg y Shot 2024 04:10P M Allergy Shots @ [address] [facility] Not available Not available Not available Allerg y Shot 2024 01:20P M Allergy Shots @ [address] [facility] Not available Not available Not available Allerg y Shot 2024 03:10P M Allergy Shots @ [address] [facility] Not available Not available Not available Office Visit 2024 03:30P M Eliot Ibarra MD Not available Not available Not available Allerg y Shot 2024 09:40A M Allergy Shots @ [address] [place] Not available Not available Not available Allerg y Shot 2024 03:00P M Allergy Shots @ [address] [place] Not available Not available Not available Allerg y Shot 2024 09:50A M Allergy Shots @ [address] [facility] [place] Not available Not available Not available Lab [...] and Address Organization Details Recorded Time Asthma [id number] Active 022 DEAN Olvera - .[facility] 07/30/2022 13:35:40 Problem Notes None recorded. Procedures Surgical History Date Name Laterality Status Provider Name and Address Organization Details Recorded Time 4 Allergy Injection, Recipe completed Nayeli Ratti [place] - .[facility] 11/11/2024 13:16:43 4 [place] Allergy Injection, Maintenance, Subsequent Vial, 1 Vial completed Nayeli Ratti [place] - .[facility] 11/11/2024 13:19:30 4 Allergy Injection, Recipe completed Nayeli Ratti [place] - .[facility] 10/31/2024 13:21:02 4 [place] Allergy Injection, Maintenance, Subsequent Vial, 1 Vial completed Nayeli Ratti [place] - .[facility] 10/31/2024 13:24:32 4 Allergy Injection, Recipe completed Caryl Villatoro [place] - .[facility] 10/23/2024 14:58:47 4 [place] Allergy Injection, Maintenance, Subsequent Vial, 1 Vial completed Caryl Villatoro [place] - .[facility] 10/23/2024 14:59:20 4 Allergy Injection, Recipe completed Glenn Bhalodia [place] - .[facility] 10/15/2024 09:14:08 4 [place] Allergy Injection, Maintenance, Subsequent Vial, 1 Vial completed Glenn Bhalodia [place] - .[facility] 10/15/2024 09:16:58 4 Allergy Injection, Recipe completed Caryl Villatoro [place] - .[facility] 10/02/2024 13:45:06 4 [place] Allergy Injection, Maintenance, Subsequent Vial, 1 Vial completed Caryl Villatoro [place] - [place] 10/02/2024 13:58:38 4 Allergy Injection, Build-up, Initial/New Vial completed Nayeli Ratti [place] - .[facility] 09/22/2024 13:22:19 4 Allergy Injection, Recipe completed Nayeli Ratti [place] - [place] 09/22/2024 13:22:19 4 [place] Allergy Injection, Maintenance, Subsequent Vial, 1 Vial completed Nayeli Ratti [place] - [place] 09/22/2024 13:25:00 4 Allergy Injection, Build-up, Initial/New Vial completed Nayeli Ratti [place] - .[facility] 09/08/2024 13:14:11 4 Allergy Injection, Recipe completed Nayeli Ratti [place] - [facility] 09/08/2024 13:14:11 4 [place] Allergy Injection, Maintenance, Subsequent Vial, 1 Vial completed Nayeli Ratti [place] - [place] 09/08/2024 13:17:01 4 Allergy Injection, Build-up, Initial/New Vial completed Glenn Bhalodia [place] - .[facility] 09/03/2024 15:01:22 4 Allergy Injection, Recipe completed Glenn Bhalodia [place] - .[facility] 09/03/2024 15:01:22 4 [place] Allergy Injection, Maintenance, Subsequent Vial, 1 Vial completed Glenn Bhalodia [place] - .[facility] 09/03/2024 15:01:45 4 Allergy Injection, Build-up, Initial/New Vial completed Glenn Bhalodia [place] - .[facility] 08/27/2024 13:47:20 4 Allergy Injection, Recipe completed Glenn Bhalodia [place] - .[facility] 08/27/2024 13:47:20 4 [place] Allergy Injection, Maintenance, Subsequent Vial, 1 Vial completed Glenn Bhalodia [place] - .[facility] 08/27/2024 13:51:25 4 Allergy Injection, Build-up, Initial/New Vial completed Caryljaun Villatoro [place] - .[facility] 08/22/2024 13:10:46 4 Allergy Injection, Recipe completed Caryl Villatoro [place] - [place] 08/22/2024 13:10:46 4 [place] Allergy Injection, Maintenance, Subsequent Vial, 1 Vial completed Caryl Villatoro [place] - [place] 08/22/2024 13:15:34 4 Allergy Injection, Build-up, Initial/New Vial completed Nayeli Ratti [place] - [place] 08/15/2024 13:14:33 4 Allergy Injection, Recipe completed Nayeli Ratti [place] - [place] 08/15/2024 13:14:33 4 [place] Allergy Injection, Maintenance, Subsequent Vial, 1 Vial completed Nayeli Ratti [place] 08/15/2024 13:18:25 4 Allergy Injection, Build-up, Initial/New Vial completed Nayeli Ratti [place] 08/08/2024 13:14:58 4 Allergy Injection, Recipe completed Nayeli Ratti [place] 08/08/2024 13:14:58 4 [place] Allergy Injection, Maintenance, Subsequent Vial, 1 Vial completed Nayeli Ratti [place] 08/08/2024 13:26:51 4 Allergy Injection, Build-up, Initial/New Vial completed Dayana Zipse [place] - .[facility] 07/29/2024 17:07:44 4 Allergy Injection, Recipe completed Dayana Zipse [place] - .[facility] 07/29/2024 17:08:27 4 [place] Allergy Injection, Maintenance, Subsequent Vial, 1 Vial completed Dayana Zipse [place] - .[facility] 07/29/2024 17:11:29 4 Allergy Injection, Build-up, Initial/New Vial completed Nayeli Ratti [place] 07/25/2024 13:00:11 4 Allergy Injection, Recipe completed Nayeli Ratti [place] - [place] 07/25/2024 12:54:22 4 Allergy Injection, Build-up, Initial/New Vial completed Nayeli Ratti [place] 07/17/2024 15:03:24 4 Allergy Injection, Recipe completed Nayeli Ratti [place] 07/17/2024 15:00:09 4 Allergy Injection, Build-up, Initial/New Vial completed Pieter Noel [place] - .[facility] 07/10/2024 14:01:31 4 Allergy Injection, Recipe completed Pieter Noel [place] - [place] 07/10/2024 13:58:56 4 Allergy Injection, Build-up, Initial/New Vial completed Nayeli Ratti [place] - [place] 07/03/2024 15:09:04 4 Allergy Injection, Recipe completed Nayeli Ratti [place] 07/03/2024 15:04:59 4 Allergy Injection, Build-up, Initial/New Vial completed Nayeli Ratti [place] 06/02/2024 13:13:08 4 Allergy Injection, Recipe completed Nayeli Ratti [place] 06/02/2024 13:06:17 4 Allergy Injection, Build-up, Initial/New Vial completed Nayeli Ratti [place] 05/30/2024 13:23:20 4 Allergy Injection, Recipe completed Nayeli Ratti [place] - [place] 05/30/2024 13:19:58 4 Allergy Injection, Build-up, Initial/New Vial completed Nayeli Ratti [place] - [place] 05/22/2024 09:53:48 4 Allergy Injection, Recipe completed Nayeli Ratti [place] - [place] 05/22/2024 09:50:32 4 Allergy Injection, Build-up, Initial/New Vial completed Nayeli Ratti [place] - [place] 05/08/2024 10:10:23 4 Allergy Injection, Recipe completed Nayeli Ratti [place] 05/08/2024 10:07:32 4 Allergy Injection, Build-up, Initial/New Vial completed Nayeli Ratti [place] - [place] 05/01/2024 10:55:39 4 Allergy Injection, Recipe completed Nayeli Ratti [place] - [place] 05/01/2024 10:53:00 4 Allergy Injection, Build-up, Initial/New Vial completed Nayeli Ratti [place] - [place] 04/15/2024 13:32:21 4 Allergy Injection, Recipe completed Nayeli Ratti [place] 04/15/2024 13:29:48 4 Allergy Injection, Build-up, Initial/New Vial completed Nayeli Ratti [place] - [place] 04/10/2024 09:41:47 4 Allergy Injection, Recipe completed Nayeli Ratti [place] 04/10/2024 09:39:04 4 Allergy Injection, Build-up, Initial/New Vial completed Glenn Bhalodia [place] - [place] 04/02/2024 08:51:41 4 Allergy Injection, Recipe completed Glenn Bhalodia [place] - [place] 04/02/2024 08:49:01 4 Allergy Injection, Build-up, Initial/New Vial completed Nayeli Ratti [place] 03/24/2024 15:27:16 4 Allergy Injection, Recipe completed Nayeli Ratti [place] 03/24/2024 15:19:09 4 Allergy Injection, Build-up, Initial/New Vial completed Nayeli Ratti [place] 03/13/2024 09:45:22 4 Allergy Injection, Recipe completed Nayeli Ratti [place] 03/13/2024 09:41:07 4 Allergy Injection, Build-up, Initial/New Vial completed Glenn Bhalodia [place] - [place] 03/05/2024 08:47:21 4 Allergy Injection, Recipe completed Glenn Bhalodia [place] - [place] 03/05/2024 08:41:42 4 Allergy Injection, Build-up, Initial/New Vial completed Aidee Abel [place] - [facility] 02/28/2024 09:37:48 4 Allergy Injection, Recipe completed Nayeli Ratti [place] 02/28/2024 09:34:24 4 Allergy Injection, Build-up, Initial/New Vial completed Glenn Bhalodia [place] - [place] 02/20/2024 08:12:30 4 Allergy Injection, Recipe completed Glenn Bhalodia [place] - [place] 02/20/2024 08:05:30 4 Allergy Injection, Build-up, Initial/New Vial completed Glenn Bhalodia [place] - [place] 02/06/2024 08:38:48 4 Allergy Injection, Recipe completed Glenn Bhalodia [place] - [place] 02/06/2024 08:35:01 4 Allergy Injection, Build-up, Initial/New Vial completed Tyler Rollins [place] - .[facility] 01/31/2024 12:26:22 4 Allergy Injection, Recipe completed Aidee Hernandez Ratti [place] - [facility] 01/31/2024 09:38:12 4 Allergy Injection, Build-up, Initial/New Vial completed Glenn Bhalodia [place] - [place] 01/24/2024 09:48:10 4 Allergy Injection, Recipe completed Glenn Bhalodia [place] - [facility] 01/24/2024 09:42:59 4 Allergy Injection, Build-up, Initial/New Vial completed Maldonado Escalante [place] - .[facility] 01/17/2024 09:40:31 4 Allergy Injection, Recipe completed Maldonado Kashifeter [place] - .[facility] 01/17/2024 09:36:01 4 Allergy Injection, Build-up, Initial/New Vial completed Caryl Villatoro [place] - [place] 01/10/2024 14:08:44 4 Allergy Injection, Recipe completed Caryl Villatoro [place] - [place] 01/10/2024 14:06:57 4 Allergy Injection, Build-up, Initial/New Vial completed Glenn Bhalodia [place] - [facility] 12/27/2023 09:55:42 4 Allergy Injection, Recipe completed Glenn Bhalodia [place] - [facility] 12/27/2023 09:50:02 4 Allergy Injection, Build-up, Initial/New Vial completed Glenn Bhalodia [place] - [place] 12/18/2023 13:36:05 4 Allergy Injection, Recipe completed Glenn Bhalodia [place] - [facility] 12/18/2023 13:32:01 4 Allergy Injection, Build-up, Initial/New Vial completed Glenn Bhalodia [place] - [facility] 12/12/2023 08:45:41 4 Allergy Injection, Recipe completed Glenn Bhalodia [place] - [place] 12/12/2023 08:41:45 4 Allergy Injection, Build-up, Initial/New Vial completed Caryl Villatoro [place] - [place] 12/06/2023 09:46:16 4 Allergy Injection, Recipe completed Caryl Villatoro [place] - [place] 12/06/2023 09:45:47 4 Allergy Injection, Build-up, Initial/New Vial completed Glenn Bhalodia [place] - [facility] 11/29/2023 09:37:17 4 Allergy Injection, Recipe completed Glenn Bhalodia [place] - [place] 11/29/2023 09:32:56 4 Allergy Injection, Build-up, Initial/New Vial completed Caryl Villatoro [place] - [place] 11/22/2023 10:28:27 4 Allergy Injection, Recipe completed Caryl Duranllana [place] - [facility] 11/22/2023 10:26:36 4 Allergy Injection, Build-up, Initial/New Vial completed Caryl Duranllana [place] - [facility] 11/15/2023 15:37:47 4 Allergy Injection, Recipe completed Caryl Duranllana [place] - [facility] 11/15/2023 15:31:59 3 Allergy Injection, Build-up, Initial/New Vial completed Dayana MORAN - .[facility] 10/30/2023 18:27:24 3 Allergy Injection, Recipe completed Dayana Valle [place] - .[facility] 10/30/2023 18:26:31 1 Other completed Malvin MORAN - .[facility] 10/18/2023 10:17:32 Imaging Results None recorded. [...] Smoking Status Never Smoker DEAN Olvera - .[facility] 07/30/2022 13:35:51 Do You Or Have You Ever Used E-cigarettes Or Vape? 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 Yes [email or web address] Information not available 10/18/2023 Cesar In Bedroom Bare Floor [email or web address] Information not available 10/18/2023 Pillows In Bedroom Synthetic [email or web address] Information not available 10/18/2023 Mattress Foam [email or web address] Information no t available 10/18/2023 Cesar In Rest Of House Hard Wood [email or web address] Information not available 10/18/2023 Do You Or Have You Ever Used Any Other Forms Of Tobacco Or Nicotine? No Information not available 10/18/2023 Sex: Unknown Functional Status None recorded. Mental Status None recorded. Family History Nothing Reported. Medical History No medical history recorded. Past Encounters Encounter ID Performer Location Encounter Start Date Encounter Closed Date Diagnosis/Indication Diagnosis SNOMED-CT Code Diagnosis ICD10 Code [id number] Luigi Camara_5 [address] [address] [place] [address],[address] [place] [id number] 1 08/15/2024 13:08:06 08/18/2024 13:35:45 Allergic rhinitis caused by pollen 08408108 J30.1 Allergic r hinitis caused by animal dander 977752534 J30.81 [id number] Fifi Rocha MD Westsreekanth_5 [address] [place] [address],[address] [place] [id number] 1 08/22/2024 13:07:02 08/23/2024 07:54:07 Allergic rhinitis caused by pollen 15026418 J30.1 Allergic r hinitis caused by animal dander 929162707 J30.81 [id number] Fifi Camara_5 [address] [place] [address],[address] [place] [address] 08/27/2024 13:45:07 08/27/2024 14:54:56 Allergic rhinitis caused by pollen 26147910 J30.1 Allergic r hinitis caused by animal dander 007175240 J30.81 [id number] Fifi Camara_5 [address] [place] [address],[address] [place] [address] 09/03/2024 14:53:13 09/03/2024 15:23:03 Allergic rhinitis caused by pollen 09526528 J30.1 Allergic r hinitis caused by animal dander 503313289 J30.81 [id number] Luigi Camara_5 [address] [place] [address],[address] [place] [address] 09/08/2024 13:13:25 09/09/2024 08:35:19 Allergic rhinitis caused by pollen 93289045 J30.1 Allergic r hinitis caused by animal dander 185880813 J30.81 Health Concerns Section Related Observation LastModified by Organization Detai ls LastModified Time None Recorded Concern Status LastModified by Organization Details LastModified Time None Recorded Payers Encounter Date Sequence Insurance Name Policy Number Policy Gaspar Covered Member ID Gaspar Member ID Guarantor Name 09/08/2024 1 [employer] - CHOICE (POS II) [id number] Augustus Heaton [id number] Augustus Heaton
--- OUTSIDE RECORDS SUMMARY | 2024-11-12 16:12 | XMS_ITS | Continuity of Care Document ---
Author Organization [place] - .[facility], [place]ALL[facility]GY Address [address] [place] [address] Care Team Providers Care Supervisor Matrix Name Role Phone FAZALMEDARDODALIAMarita TATYANA Primary Care [...] 2024 09:40A M Allergy Shots @ [address] [place] Not available Not available Not available Allerg y Shot 2024 03:00P M Allergy Shots @ [address] [place] Not available Not available Not available Allerg y Shot 2024 09:50A M Allergy Shots @ [address] [place] Not available Not available Not available Lab [...] and Address Organization Details Recorded Time Asthma [id number] Active 022 DEAN Olvera - .[facility] 07/30/2022 13:35:40 Problem Notes None recorded. Procedures Surgical History Date Name Laterality Status Provider Name and Address Organization Details Recorded Time 4 Allergy Injection, Recipe completed Nayeli Ratti [place] - .[facility] 11/11/2024 13:16:43 4 [place] Allergy Injection, Maintenance, Subsequent Vial, 1 Vial completed Nayeli Ratti [place] [facility] 11/11/2024 13:19:30 4 Allergy Injection, Recipe completed Nayeli Ratti [place] [facility] 10/31/2024 13:21:02 4 [place] Allergy Injection, Maintenance, Subsequent Vial, 1 Vial completed Nayeli Ratti [place] [facility] 10/31/2024 13:24:32 4 Allergy Injection, Recipe completed Caryl Villatoro [place] [facility] 10/23/2024 14:58:47 4 [place] Allergy Injection, Maintenance, Subsequent Vial, 1 Vial completed Caryl Villatoro [place] [facility] 10/23/2024 14:59:20 4 Allergy Injection, Recipe completed Glenn Bhalodia [place] [facility] 10/15/2024 09:14:08 4 [place] Allergy Injection, Maintenance, Subsequent Vial, 1 Vial completed Glenn Bhalodia [place] - [facility] 10/15/2024 09:16:58 4 Allergy Injection, Recipe completed Caryl Villatoro [place] [facility] 10/02/2024 13:45:06 4 [place] Allergy Injection, Maintenance, Subsequent Vial, 1 Vial completed Caryl Villatoro [place] [facility] 10/02/2024 13:58:38 4 Allergy Injection, Build-up, Initial/New Vial completed Nayeli Ratti [place] [facility] 09/22/2024 13:22:19 4 Allergy Injection, Recipe completed Nayeli Ratti [place] [facility] 09/22/2024 13:22:19 4 [place] Allergy Injection, Maintenance, Subsequent Vial, 1 Vial completed Nayeli Ratti [place] [facility] 09/22/2024 13:25:00 4 Allergy Injection, Build-up, Initial/New Vial [place] [facility] 09/08/2024 13:14:11 4 Allergy Injection, Recipe completed Nayeli Ratti [place] [facility] 09/08/2024 13:14:11 4 [place] Allergy Injection, Maintenance, Subsequent Vial, 1 Vial completed Nayeli Ratti [place] [facility] 09/08/2024 13:17:01 4 Allergy Injection, Build-up, Initial/New Vial completed Glenn Bhalodia [place] [facility] 09/03/2024 15:01:22 4 Allergy Injection, Recipe completed Glenn Bhalodia [place] [facility] 09/03/2024 15:01:22 4 [place] Allergy Injection, Maintenance, Subsequent Vial, 1 Vial completed Glenn B[place]odia [place] [facility] 09/03/2024 15:01:45 4 Allergy Injection, Build-up, Initial/New Vial completed Glenn B[place]odia [place] [facility] 08/27/2024 13:47:20 4 Allergy Injection, Recipe completed Glenn Bhalodia [place] [facility] 08/27/2024 13:47:20 4 [place] Allergy Injection, Maintenance, Subsequent Vial, 1 Vial completed Glenn Bhalodia [place] [facility] 08/27/2024 13:51:25 4 Allergy Injection, Build-up, Initial/New Vial completed Caryljaun Villatoro [place] [facility] 08/22/2024 13:10:46 4 Allergy Injection, Recipe completed Caryl Villatoro [place] [facility] 08/22/2024 13:10:46 4 [place] Allergy Injection, Maintenance, Subsequent Vial, 1 Vial completed Caryl Villatoro [place] [facility] 08/22/2024 13:15:34 4 Allergy Injection, Build-up, Initial/New Vial completed Nayeli Ratti [place] [facility] 08/15/2024 13:14:33 4 Allergy Injection, Recipe completed Nayeli Ratti [place] [facility] 08/15/2024 13:14:33 4 [place] Allergy Injection, Maintenance, Subsequent Vial, 1 Vial completed Nayeli Ratti [place] [facility] 08/15/2024 13:18:25 4 Allergy Injection, Build-up, Initial/New Vial completed Nayeli Ratti [place] [facility] 08/08/2024 13:14:58 4 Allergy Injection, Recipe completed Nayeli Ratti [place] [facility] 08/08/2024 13:14:58 4 [place] Allergy Injection, Maintenance, Subsequent Vial, 1 Vial completed Nayeli Ratti [place] [facility] 08/08/2024 13:26:51 4 Allergy Injection, Build-up, Initial/New Vial completed Dayana Zipse [place] [facility] 07/29/2024 17:07:44 4 Allergy Injection, Recipe completed Dayana Zipse [place] [facility] 07/29/2024 17:08:27 4 [place] Allergy Injection, Maintenance, Subsequent Vial, 1 Vial completed Dayana Zipse [place] [facility] 07/29/2024 17:11:29 4 Allergy Injection, Build-up, Initial/New Vial completed Nayeli Ratti [place] [facility] 07/25/2024 13:00:11 4 Allergy Injection, Recipe completed Nayeli Ratti [place] [facility] 07/25/2024 12:54:22 4 Allergy Injection, Build-up, Initial/New Vial completed Nyaeli Ratti [place] [facility] 07/17/2024 15:03:24 4 Allergy Injection, Recipe completed Nayeli Ratti [place] [facility] 07/17/2024 15:00:09 4 Allergy Injection, Build-up, Initial/New Vial completed Pieter Noel [place] [facility] 07/10/2024 14:01:31 4 Allergy Injection, Recipe completed Pieter Noel [place] [facility] 07/10/2024 13:58:56 4 Allergy Injection, Build-up, Initial/New Vial completed Nayeli Ratti [place] [facility] 07/03/2024 15:09:04 4 Allergy Injection, Recipe completed Nayeli Ratti [place] [facility] 07/03/2024 15:04:59 4 Allergy Injection, Build-up, Initial/New Vial completed Nayeli Ratti [place] [facility] 06/02/2024 13:13:08 4 Allergy Injection, Recipe completed Nayeli Ratti [place] [facility] 06/02/2024 13:06:17 4 Allergy Injection, Build-up, Initial/New Vial completed Nayeli Ratti [place] [facility] 05/30/2024 13:23:20 4 Allergy Injection, Recipe completed Nayeli Ratti [place] [facility] 05/30/2024 13:19:58 4 Allergy Injection, Build-up, Initial/New Vial completed Nayeli Ratti [place] [facility] 05/22/2024 09:53:48 4 Allergy Injection, Recipe completed Nayeli Ratti [place] [facility] 05/22/2024 09:50:32 4 Allergy Injection, Build-up, Initial/New Vial completed Nayeli Ratti [place] [facility] 05/08/2024 10:10:23 4 Allergy Injection, Recipe completed Nayeli Ratti [place] [facility] 05/08/2024 10:07:32 4 Allergy Injection, Build-up, Initial/New Vial completed Nayeli Ratti [place] [facility] 05/01/2024 10:55:39 4 Allergy Injection, Recipe completed Nayeli Ratti [place] [facility] 05/01/2024 10:53:00 4 Allergy Injection, Build-up, Initial/New Vial completed Nayeli Ratti [place] [facility] 04/15/2024 13:32:21 4 Allergy Injection, Recipe completed Nayeli Ratti [place] [facility] 04/15/2024 13:29:48 4 Allergy Injection, Build-up, Initial/New Vial completed Nayeli Ratti [place] [facility] 04/10/2024 09:41:47 4 Allergy Injection, Recipe completed Nayeli Ratti [place] [facility] 04/10/2024 09:39:04 4 Allergy Injection, Build-up, Initial/New Vial completed Glenn Bhalodia [place] [facility] 04/02/2024 08:51:41 4 Allergy Injection, Recipe completed Glenn Bhalodia [place] [facility] 04/02/2024 08:49:01 4 Allergy Injection, Build-up, Initial/New Vial completed Nayeli Ratti [place] [facility] 03/24/2024 15:27:16 4 Allergy Injection, Recipe completed Nayeli Ratti [place] [facility] 03/24/2024 15:19:09 4 Allergy Injection, Build-up, Initial/New Vial completed Nayeli Ratti [place] [facility] 03/13/2024 09:45:22 4 Allergy Injection, Recipe completed Nayeli Ratti [place] [facility] 03/13/2024 09:41:07 4 Allergy Injection, Build-up, Initial/New Vial completed Glenn Bhalodia [place] [facility] 03/05/2024 08:47:21 4 Allergy Injection, Recipe completed Glenn Bhalodia [place] [facility] 03/05/2024 08:41:42 4 Allergy Injection, Build-up, Initial/New Vial completed Aidee Abel [place] [facility] 02/28/2024 09:37:48 4 Allergy Injection, Recipe completed Nayeli Ratti [place] [facility] 02/28/2024 09:34:24 4 Allergy Injection, Build-up, Initial/New Vial completed Glenn Bhalodia [place] [facility] 02/20/2024 08:12:30 4 Allergy Injection, Recipe completed Glenn Bhalodia [place] [facility] 02/20/2024 08:05:30 4 Allergy Injection, Build-up, Initial/New Vial completed Glenn Bhalodia [place] [facility] 02/06/2024 08:38:48 4 Allergy Injection, Recipe completed Glenn Bhalodia [place] [facility] 02/06/2024 08:35:01 4 Allergy Injection, Build-up, Initial/New Vial completed Tyler Rollins [place] [facility] 01/31/2024 12:26:22 4 Allergy Injection, Recipe completed Aidee Hernandez Ratti [place] [facility] 01/31/2024 09:38:12 4 Allergy Injection, Build-up, Initial/New Vial completed Glenn Bhalodia [place] [facility] 01/24/2024 09:48:10 4 Allergy Injection, Recipe completed Glenn B[place]odia [place] [facility] 01/24/2024 09:42:59 4 Allergy Injection, Build-up, Initial/New Vial completed Maldonado Escalante [place] [facility] 01/17/2024 09:40:31 4 Allergy Injection, Recipe completed Maldonado Kashifeter [place] [facility] 01/17/2024 09:36:01 4 Allergy Injection, Build-up, Initial/New Vial completed Caryl Villatoro [place] [facility] 01/10/2024 14:08:44 4 Allergy Injection, Recipe completed Caryl Villatoro [place] [facility] 01/10/2024 14:06:57 4 Allergy Injection, Build-up, Initial/New Vial completed Glenn Bhalodia [place] [facility] 12/27/2023 09:55:42 4 Allergy Injection, Recipe completed Glenn Bhalodia [place] [facility] 12/27/2023 09:50:02 4 Allergy Injection, Build-up, Initial/New Vial completed Glenn Bhalodia [place] [facility] 12/18/2023 13:36:05 4 Allergy Injection, Recipe completed Glenn Bhalodia [place] [facility] 12/18/2023 13:32:01 4 Allergy Injection, Build-up, Initial/New Vial completed Glenn B[place]odia [place] [facility] 12/12/2023 08:45:41 4 Allergy Injection, Recipe completed Glenn Bhalodia [place] [facility] 12/12/2023 08:41:45 4 Allergy Injection, Build-up, Initial/New Vial completed Caryl Villatoro [place] [facility] 12/06/2023 09:46:16 4 Allergy Injection, Recipe completed Caryl Villatoro [place] [facility] 12/06/2023 09:45:47 4 Allergy Injection, Build-up, Initial/New Vial completed Glenn Bhalodia [place] [facility] 11/29/2023 09:37:17 4 Allergy Injection, Recipe completed Glenn Bhalodia [place] [facility] 11/29/2023 09:32:56 4 Allergy Injection, Build-up, Initial/New Vial completed Caryl Villatoro [place] [facility] 11/22/2023 10:28:27 4 Allergy Injection, Recipe completed Caryl Duranllana [place] - [facility] 11/22/2023 10:26:36 4 Allergy Injection, Build-up, Initial/New Vial completed Caryl Duranllana [place] [facility] 11/15/2023 15:37:47 4 Allergy Injection, Recipe completed Caryl Duranllana [place] - [facility] 11/15/2023 15:31:59 3 Allergy Injection, Build-up, Initial/New Vial completed Dayana MORAN - .[facility] 10/30/2023 18:27:24 3 Allergy Injection, Recipe completed Dayana Valle [place] [facility] 10/30/2023 18:26:31 1 Other completed Malvin MOR[place] - .[facility] 10/18/2023 10:17:32 Imaging Results None recorded. Procedure [...] Smoking Status Never Smoker DEAN Olvera - .[facility] 07/30/2022 13:35:51 Do You Or Have You Ever Used E-cigarettes Or Vape? 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 Yes [email or web address] Information not available 10/18/2023 Cesar In Bedroom Bare Floor [email or web address] Information not available 10/18/2023 Pillows In Bedroom Synthetic [email or web address] Information not available 10/18/2023 Mattress Foam [email or web address] Information no t available 10/18/2023 Cesar In [...] Diagnosis/Indication Diagnosis SNOMED-CT Code Diagnosis ICD10 Code [id number] Luigi Mccauley MD [facility] [address] [employer] [address] [place] [address],[address] [place] [id number] 1 09/22/2024 13:19:36 09/22/2024 14:47:13 Allergic rhinitis caused by pollen 29341269 J30.1 Allergic r hinitis caused by animal dander [id number] J30.81 [id number] Eliot Ibarra MD [place] [address] [facility] [address] [place] [address],[address] [place] [id number] 1 10/02/2024 13:43:22 10/03/2024 11:02:17 Allergic rhinitis caused by pollen 26354716 J30.1 Allergic r hinitis caused by animal dander [id number] J30.81 [id number] Fifi Rocha MD [place]5 [facility]A [facility] [address] [place] [id number] 1 10/15/2024 09:07:15 10/15/2024 10:43:34 Allergic rhinitis caused by pollen 90163118 J30.1 Allergic r hinitis caused by animal dander [id number] J30.81 Health Concerns Section Related Observation LastModified by Organization Detai ls LastModified Time None Recorded Concern Status LastModified by Organization Details LastModified Time None Recorded Payers Encounter Date Sequence Insurance Name Policy Number Policy Gaspar Covered Member ID Gaspar Member ID Guarantor Name 10/15/2024 1 [employer] - CHOICE (POS II) [id number] Augustus Heaton [id number] Augustus Heaton
--- OUTSIDE RECORDS SUMMARY | 2024-11-12 16:12 | XMS_ITS | Continuity of Care Document ---
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 Plan of Treatment [...] 2024 09:40A M Allergy Shots @ [address] [facility] Not available Not available Not available Allerg y Shot 2024 03:00P M Allergy Shots @ [address] [facility] Not available Not available Not available Allerg y Shot 2024 09:50A M Allergy Shots @ [address] [facility] [address] [facility] Not available Not available Not available Lab [...] and Address Organization Details Recorded Time Asthma [id number] Active 022 DEAN Olvera - .[facility] 07/30/2022 13:35:40 Problem Notes None recorded. Procedures Surgical History Date Name Laterality Status Provider Name and Address Organization Details Recorded Time 4 Allergy Injection, Recipe completed Nayeli Ratti [place] - .[facility] 11/11/2024 13:16:43 4 [facility] Allergy Injection, Maintenance, Subsequent Vial, 1 Vial completed Nayeli Ratti [place] - [place] 11/11/2024 13:19:30 4 Allergy Injection, Recipe completed Nayeli Ratti [place] - [place] 10/31/2024 13:21:02 4 [facility] Allergy Injection, Maintenance, Subsequent Vial, 1 Vial completed Nayeli Ratti [place] - [place] 10/31/2024 13:24:32 4 Allergy Injection, Recipe completed Caryl Villatoro [place] - [place] 10/23/2024 14:58:47 4 [facility] Allergy Injection, Maintenance, Subsequent Vial, 1 Vial completed Caryl Villatoro [place] 10/23/2024 14:59:20 4 Allergy Injection, Recipe completed Glenn Bhalodia [place] - .[facility] 10/15/2024 09:14:08 4 [facility] Allergy Injection, Maintenance, Subsequent Vial, 1 Vial completed Glenn Bhalodia [place] - .[facility] 10/15/2024 09:16:58 4 Allergy Injection, Recipe completed Caryl Villatoro [place] 10/02/2024 13:45:06 4 [facility] Allergy Injection, Maintenance, Subsequent Vial, 1 Vial completed Caryl Villatoro [place] - [place] 10/02/2024 13:58:38 4 Allergy Injection, Build-up, Initial/New Vial completed Nayeli Ratti [place] - [place] 09/22/2024 13:22:19 4 Allergy Injection, Recipe completed Nayeli Ratti [place] - [place] 09/22/2024 13:22:19 4 [facility] Allergy Injection, Maintenance, Subsequent Vial, 1 Vial completed Nayeli Ratti [place] 09/22/2024 13:25:00 4 Allergy Injection, Build-up, Initial/New Vial [place]eli Ratti [place] - [place] 09/08/2024 13:14:11 4 Allergy Injection, Recipe completed Nayeli Ratti [place] - [place] 09/08/2024 13:14:11 4 [facility] Allergy Injection, Maintenance, Subsequent Vial, 1 Vial completed Nayeli Ratti [place] - [place] 09/08/2024 13:17:01 4 Allergy Injection, Build-up, Initial/New Vial completed Glenn Bhalodia [place] - .[facility] 09/03/2024 15:01:22 4 Allergy Injection, Recipe completed Glenn Bhalodia [place] - [place] 09/03/2024 15:01:22 4 [facility] Allergy Injection, Maintenance, Subsequent Vial, 1 Vial completed Glenn Bhalodia [place] - [place] 09/03/2024 15:01:45 4 Allergy Injection, Build-up, Initial/New Vial completed Glenn Bhalodia [place] - [place] 08/27/2024 13:47:20 4 Allergy Injection, Recipe completed Glenn Bhalodia [place] - [place] 08/27/2024 13:47:20 4 [facility] Allergy Injection, Maintenance, Subsequent Vial, 1 Vial completed Glenn Bhalodia [place] - .[facility] 08/27/2024 13:51:25 4 Allergy Injection, Build-up, Initial/New Vial completed Caryljaun Villatoro [place] - [place] 08/22/2024 13:10:46 4 Allergy Injection, Recipe completed Caryl Villatoro [place] 08/22/2024 13:10:46 4 [facility] Allergy Injection, Maintenance, Subsequent Vial, 1 Vial completed Caryl Villatoro [place] 08/22/2024 13:15:34 4 Allergy Injection, Build-up, Initial/New Vial completed Nayeli Ratti [place] 08/15/2024 13:14:33 4 Allergy Injection, Recipe completed Nayeli Ratti [place] 08/15/2024 13:14:33 4 [facility] Allergy Injection, Maintenance, Subsequent Vial, 1 Vial completed Nayeli Ratti [place] 08/15/2024 13:18:25 4 Allergy Injection, Build-up, Initial/New Vial completed Nayeli Ratti [place] 08/08/2024 13:14:58 4 Allergy Injection, Recipe completed Nayeli Ratti [place] 08/08/2024 13:14:58 4 [facility] Allergy Injection, Maintenance, Subsequent Vial, 1 Vial completed Nayeli Ratti [place] 08/08/2024 13:26:51 4 Allergy Injection, Build-up, Initial/New Vial completed Dayana Zipse [place] .[facility] 07/29/2024 17:07:44 4 Allergy Injection, Recipe completed Dayana Zipse [place] 07/29/2024 17:08:27 4 [facility] Allergy Injection, Maintenance, Subsequent Vial, 1 Vial completed Dayana Zipse [place] - [place] 07/29/2024 17:11:29 4 Allergy Injection, Build-up, Initial/New Vial completed Nayeli Ratti [place] 07/25/2024 13:00:11 4 Allergy Injection, Recipe completed Nayeli Ratti [place] - [place] 07/25/2024 12:54:22 4 Allergy Injection, Build-up, Initial/New Vial completed Nayeli Ratti [place] 07/17/2024 15:03:24 4 Allergy Injection, Recipe completed Nayeli Ratti [place] 07/17/2024 15:00:09 4 Allergy Injection, Build-up, Initial/New Vial completed Pieter Noel [place] - [place] 07/10/2024 14:01:31 4 Allergy Injection, Recipe completed Pieter Noel [place] - [place] 07/10/2024 13:58:56 4 Allergy Injection, Build-up, Initial/New Vial completed Nayeli Ratti [place] 07/03/2024 15:09:04 4 Allergy Injection, Recipe completed Nayeli Ratti [place] 07/03/2024 15:04:59 4 Allergy Injection, Build-up, Initial/New Vial completed Nayeli Ratti [place] 06/02/2024 13:13:08 4 Allergy Injection, Recipe completed Nayeli Ratti [place] 06/02/2024 13:06:17 4 Allergy Injection, Build-up, Initial/New Vial completed Nayeli Ratti [place] - [place] 05/30/2024 13:23:20 4 Allergy Injection, Recipe completed Nayeli Ratti [place] 05/30/2024 13:19:58 4 Allergy Injection, Build-up, Initial/New Vial completed Nayeli Ratti [place] 05/22/2024 09:53:48 4 Allergy Injection, Recipe completed Nayeli Ratti [place] 05/22/2024 09:50:32 4 Allergy Injection, Build-up, Initial/New Vial completed Nayeli Ratti [place] 05/08/2024 10:10:23 4 Allergy Injection, Recipe completed Nayeli Ratti [place] 05/08/2024 10:07:32 4 Allergy Injection, Build-up, Initial/New Vial completed Nayeli Ratti [place] 05/01/2024 10:55:39 4 Allergy Injection, Recipe completed Nayeli Ratti [place] - [place] 05/01/2024 10:53:00 4 Allergy Injection, Build-up, Initial/New Vial completed Nayeli Ratti [place] 04/15/2024 13:32:21 4 Allergy Injection, Recipe completed Nayeli Ratti [place] 04/15/2024 13:29:48 4 Allergy Injection, Build-up, Initial/New Vial completed Nayeli Ratti [place] 04/10/2024 09:41:47 4 Allergy Injection, Recipe completed Nayeli Ratti [place] 04/10/2024 09:39:04 4 Allergy Injection, Build-up, Initial/New Vial completed Glenn Bhalodia [place] - [place] 04/02/2024 08:51:41 4 Allergy Injection, Recipe completed Glenn Bhalodia [place] - [place] 04/02/2024 08:49:01 4 Allergy Injection, Build-up, Initial/New Vial completed Nayeli Ratti [place] 03/24/2024 15:27:16 4 Allergy Injection, Recipe completed Nayeli Ratti [place] 03/24/2024 15:19:09 4 Allergy Injection, Build-up, Initial/New Vial completed Nayeli Ratti [place] 03/13/2024 09:45:22 4 Allergy Injection, Recipe completed Nayeli Ratti [place] 03/13/2024 09:41:07 4 Allergy Injection, Build-up, Initial/New Vial completed Glenn Bhalodia [place] 03/05/2024 08:47:21 4 Allergy Injection, Recipe completed Glenn Bhalodia [place] - [place] 03/05/2024 08:41:42 4 Allergy Injection, Build-up, Initial/New Vial completed Aidee Abel [place] - [place] 02/28/2024 09:37:48 4 Allergy Injection, Recipe completed Nayeli Ratti [place] 02/28/2024 09:34:24 4 Allergy Injection, Build-up, Initial/New Vial completed Glenn Bhalodia [place] - [place] 02/20/2024 08:12:30 4 Allergy Injection, Recipe completed Glenn Bhalodia [place] - [place] 02/20/2024 08:05:30 4 Allergy Injection, Build-up, Initial/New Vial completed Glenn Bhalodia [place] - [place] 02/06/2024 08:38:48 4 Allergy Injection, Recipe completed Glenn Bhalodia [place] - [place] 02/06/2024 08:35:01 4 Allergy Injection, Build-up, Initial/New Vial completed Tyler Rollins [place] - .[facility] 01/31/2024 12:26:22 4 Allergy Injection, Recipe completed Aidee Hernandez Ratti [place] - [place] 01/31/2024 09:38:12 4 Allergy Injection, Build-up, Initial/New Vial completed Glenn Bhalodia [place] - [place] 01/24/2024 09:48:10 4 Allergy Injection, Recipe completed Glenn Bhalodia [place] - [place] 01/24/2024 09:42:59 4 Allergy Injection, Build-up, Initial/New Vial completed Maldonado Escalante [place] - .[facility] 01/17/2024 09:40:31 4 Allergy Injection, Recipe completed Maldonado Kashifeter [place] - [place] 01/17/2024 09:36:01 4 Allergy Injection, Build-up, Initial/New Vial completed Caryl Villatoro [place] 01/10/2024 14:08:44 4 Allergy Injection, Recipe completed Caryl Villatoro [place] 01/10/2024 14:06:57 4 Allergy Injection, Build-up, Initial/New Vial completed Glenn Bhalodia [place] - [place] 12/27/2023 09:55:42 4 Allergy Injection, Recipe completed Glenn Bhalodia [place] - [place] 12/27/2023 09:50:02 4 Allergy Injection, Build-up, Initial/New Vial completed Glenn Bhalodia [place] - [place] 12/18/2023 13:36:05 4 Allergy Injection, Recipe completed Glenn Bhalodia [place] - [place] 12/18/2023 13:32:01 4 Allergy Injection, Build-up, Initial/New Vial completed Glenn Bhalodia [place] - [place] 12/12/2023 08:45:41 4 Allergy Injection, Recipe completed Glenn Bhalodia [place] - [place] 12/12/2023 08:41:45 4 Allergy Injection, Build-up, Initial/New Vial completed Caryl Villatoro [place] 12/06/2023 09:46:16 4 Allergy Injection, Recipe completed Caryl Villatoro [place] - [place] 12/06/2023 09:45:47 4 Allergy Injection, Build-up, Initial/New Vial completed Glenn Bhalodia [place] - [place] 11/29/2023 09:37:17 4 Allergy Injection, Recipe completed Glenn Bhalodia [place] - [place] 11/29/2023 09:32:56 4 Allergy Injection, Build-up, Initial/New Vial completed Caryl Ivllatoro [place] - [place] 11/22/2023 10:28:27 4 Allergy Injection, Recipe completed Crayl Duranllana [place] - .[facility] 11/22/2023 10:26:36 4 Allergy Injection, Build-up, Initial/New Vial completed Caryl Duranllana [place] - [place] 11/15/2023 15:37:47 4 Allergy Injection, Recipe completed Caryl Duranllana [place] - [place] 11/15/2023 15:31:59 3 Allergy Injection, Build-up, Initial/New Vial completed Dayana MOR[place] - .[facility] 10/30/2023 18:27:24 3 Allergy Injection, Recipe completed Dayana Valle [place] - .[facility] 10/30/2023 18:26:31 1 Other completed Malvin MORAN - .[facility] 10/18/2023 10:17:32 Imaging Results None recorded. [...] Smoking Status Never Smoker DEAN Olvera - .[facility] 07/30/2022 13:35:51 Do You Or Have You Ever Used E-cigarettes Or Vape? 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 Yes [email or web address] Information not available 10/18/2023 Cesar In Bedroom Bare Floor [email or web address] Information not available 10/18/2023 Pillows In Bedroom Synthetic [email or web address] Information not available 10/18/2023 Mattress Foam [email or web address] Information no t available 10/18/2023 Cesar In Rest Of House Hard Wood [email or web address] Information not available 10/18/2023 Do You Or Have You Ever Used Any Other Forms Of Tobacco Or Nicotine? No Information not available 10/18/2023 Sex: Unknown Functional Status None recorded. Mental Status None recorded. Family History Nothing Reported. Medical History No medical history recorded. Past Encounters Encounter ID Performer Location Encounter Start Date Encounter Closed Date Diagnosis/Indication Diagnosis SNOMED-CT Code Diagnosis ICD10 Code [id number] Eliot Ibarra MD [place] [address] [address] [place] [address],[address] [place] [id number] 1 10/02/2024 13:43:22 10/03/2024 11:02:17 Allergic rhinitis caused by pollen 85127245 J30.1 Allergic r hinitis caused by animal dander 659676283 J30.81 [id number] Fifi Rocha MD [place] [address] [facility] [address] [place] [address],[address] [place] [id number] 1 10/15/2024 09:07:15 10/15/2024 10:43:34 Allergic rhinitis caused by pollen 38581065 J30.1 Allergic r hinitis caused by animal dander 469036829 J30.81 [id number] Eliot Ibarra MD [place] [place] [address],[address] [place] [id number] 1 10/23/2024 14:53:48 10/24/2024 11:41:57 Allergic rhinitis caused by pollen 12067991 J30.1 Allergic r hinitis caused by animal dander 727957373 J30.81 Health Concerns Section Related Observation LastModified by Organization Detai ls LastModified Time None Recorded Concern Status LastModified by Organization Details LastModified Time None Recorded Payers Encounter Date Sequence Insurance Name Policy Number Policy Gaspar Covered Member ID Gaspar Member ID Guarantor Name 10/23/2024 1 [employer] - CHOICE (POS II) [id number] Augustus Heaton [id number] Augustus Heaton
--- OUTSIDE RECORDS SUMMARY | 2024-11-12 16:12 | XMS_ITS | Continuity of Care Document ---
Author Organization [place] - .[facility], [place] Address [address] [facility] [address] [place] [address] Care Team Providers Care Glass Carrier Name Role Phone FAZALMEDARDODALIAMraita TATYANA Primary Care Provider Assessment No assessment recorded. Plan of Treatment Reminders Order Date Submit Date Provider Last Modified By Organization Details Last Modified Time Details Appointments Allerg y Shot 2024 01:40P M Allergy Shots @ [address] [facility] Not available Not available Not available New Patien t Visit 2024 09:00A M Demond Lamar MD Not available Not available Not available Allerg y Shot 2024 04:10P M Allergy Shots @ [address] [facility] Not available Not available Not available Allerg y Shot 2024 01:20P M Allergy Shots @ [address] [facility] Not available Not available Not available Allerg y Shot 2024 03:10P M Allergy Shots @ [address] [facility] Not available Not available Not available Office Visit 2024 03:30P M Eliot Ibarra MD Not available Not available Not available Allerg y Shot 2024 09:40A M Allergy Shots @ [address] [place] Not available Not available Not available Allerg y Shot 2024 03:00P M Allergy Shots @ [address] [place] Not available Not available Not available Allerg y Shot 2024 09:50A M All[facility] Shots @ [address] [facility] [place] Not available Not available Not available Lab [...] and Address Organization Details Recorded Time Asthma [id number] Active 022 DEAN Olvera - .[facility] 07/30/2022 13:35:40 Problem Notes None recorded. Procedures Surgical History Date Name Laterality Status Provider Name and Address Organization Details Recorded Time 4 Allergy Injection, Recipe completed Nayeli Ratti [place] - .[facility] 11/11/2024 13:16:43 4 [place] Allergy Injection, Maintenance, Subsequent Vial, 1 Vial completed Nayeli Ratti [place] 11/11/2024 13:19:30 4 Allergy Injection, Recipe completed Nayeli Ratti [place] - [place] 10/31/2024 13:21:02 4 [place] Allergy Injection, Maintenance, Subsequent Vial, 1 Vial completed Nayeli Ratti [place] 10/31/2024 13:24:32 4 Allergy Injection, Recipe completed Caryl Villatoro [place] [facility] 10/23/2024 14:58:47 4 [place] Allergy Injection, Maintenance, Subsequent Vial, 1 Vial completed Caryl Villatoro [place] 10/23/2024 14:59:20 4 Allergy Injection, Recipe completed Glenn Bhalodia [place] - .[facility] 10/15/2024 09:14:08 4 [place] Allergy Injection, Maintenance, Subsequent Vial, 1 Vial completed Glenn Bhalodia [place] - .[facility] 10/15/2024 09:16:58 4 Allergy Injection, Recipe completed Caryl Villatoro [place] 10/02/2024 13:45:06 4 [place] Allergy Injection, Maintenance, Subsequent Vial, 1 Vial completed Caryl Villatoro [place] 10/02/2024 13:58:38 4 Allergy Injection, Build-up, Initial/New Vial completed Nayeli Ratti [place] 09/22/2024 13:22:19 4 Allergy Injection, Recipe completed Nayeli Ratti [place] [facility] 09/22/2024 13:22:19 4 [place] Allergy Injection, Maintenance, Subsequent Vial, 1 Vial completed Nayeli Ratti [place] 09/22/2024 13:25:00 4 Allergy Injection, Build-up, Initial/New Vial [place]ayeli Ratti [place] 09/08/2024 13:14:11 4 Allergy Injection, Recipe completed Nayeli Ratti [place] 09/08/2024 13:14:11 4 [place] Allergy Injection, Maintenance, Subsequent Vial, 1 Vial completed Nayeli Ratti [place] 09/08/2024 13:17:01 4 Allergy Injection, Build-up, Initial/New Vial completed Glenn Bhalodia [place] - .[facility] 09/03/2024 15:01:22 4 Allergy Injection, Recipe completed Glenn Bhalodia [place] - [place] 09/03/2024 15:01:22 4 [place] Allergy Injection, Maintenance, Subsequent Vial, 1 Vial completed Glenn Bhalodia [place] 09/03/2024 15:01:45 4 Allergy Injection, Build-up, Initial/New Vial completed Glenn Bhalodia [place] 08/27/2024 13:47:20 4 Allergy Injection, Recipe completed Glenn Bhalodia [place] 08/27/2024 13:47:20 4 [place] Allergy Injection, Maintenance, Subsequent Vial, 1 Vial completed Glenn Bhalodia [place] 08/27/2024 13:51:25 4 Allergy Injection, Build-up, Initial/New Vial completed Caryljaun Villatoro [place] 08/22/2024 13:10:46 4 Allergy Injection, Recipe completed Caryl Villatoro [place] 08/22/2024 13:10:46 4 [place] Allergy Injection, Maintenance, Subsequent Vial, 1 Vial completed Caryl Villatoro [place] 08/22/2024 13:15:34 4 Allergy Injection, Build-up, Initial/New Vial completed Nayeli Ratti [place] 08/15/2024 13:14:33 4 Allergy Injection, Recipe completed Nayeli Ratti [place] 08/15/2024 13:14:33 4 [place] Allergy Injection, Maintenance, Subsequent Vial, 1 Vial completed Nayeli Ratti [place] 08/15/2024 13:18:25 4 Allergy Injection, Build-up, Initial/New Vial completed Nayeli Ratti [place] 08/08/2024 13:14:58 4 Allergy Injection, Recipe completed Nayeli Ratti [place] 08/08/2024 13:14:58 4 [place] Allergy Injection, Maintenance, Subsequent Vial, 1 Vial completed Nayeli Ratti [place] 08/08/2024 13:26:51 4 Allergy Injection, Build-up, Initial/New Vial completed Dayana Zipse [place] 07/29/2024 17:07:44 4 Allergy Injection, Recipe completed Dayana Zipse [place] 07/29/2024 17:08:27 4 [place] Allergy Injection, Maintenance, Subsequent Vial, 1 Vial completed Dayana Zipse [place] 07/29/2024 17:11:29 4 Allergy Injection, Build-up, Initial/New Vial completed Nayeli Ratti [place] 07/25/2024 13:00:11 4 Allergy Injection, Recipe completed Nayeli Ratti [place] 07/25/2024 12:54:22 4 Allergy Injection, Build-up, Initial/New Vial completed Nayeli Ratti [place] 07/17/2024 15:03:24 4 Allergy Injection, Recipe completed Nayeli Ratti [place] 07/17/2024 15:00:09 4 Allergy Injection, Build-up, Initial/New Vial completed Pieter oNel [place] .[facility] 07/10/2024 14:01:31 4 Allergy Injection, Recipe completed Pieter Noel [place] 07/10/2024 13:58:56 4 Allergy Injection, Build-up, Initial/New Vial completed Nayeli Ratti [place] 07/03/2024 15:09:04 4 Allergy Injection, Recipe completed Nayeli Ratti [place] 07/03/2024 15:04:59 4 Allergy Injection, Build-up, Initial/New Vial completed Nayeli Ratti [place] 06/02/2024 13:13:08 4 Allergy Injection, Recipe completed Nayeli Ratti [place] 06/02/2024 13:06:17 4 Allergy Injection, Build-up, Initial/New Vial completed Nayeli Ratti [place] 05/30/2024 13:23:20 4 Allergy Injection, Recipe completed Nayeli Ratti [place] 05/30/2024 13:19:58 4 Allergy Injection, Build-up, Initial/New Vial completed Nayeli Ratti [place] 05/22/2024 09:53:48 4 Allergy Injection, Recipe completed Nayeli Ratti [place] 05/22/2024 09:50:32 4 Allergy Injection, Build-up, Initial/New Vial completed Nayeli Ratti [place] 05/08/2024 10:10:23 4 Allergy Injection, Recipe completed Nayeli Ratti [place] 05/08/2024 10:07:32 4 Allergy Injection, Build-up, Initial/New Vial completed Nayeli Ratti [place] 05/01/2024 10:55:39 4 Allergy Injection, Recipe completed Nayeli Ratti [place] 05/01/2024 10:53:00 4 Allergy Injection, Build-up, Initial/New Vial completed Nayeli Ratti [place] 04/15/2024 13:32:21 4 Allergy Injection, Recipe completed Nayeli Ratti [place] 04/15/2024 13:29:48 4 Allergy Injection, Build-up, Initial/New Vial completed Nayeli Ratti [place] 04/10/2024 09:41:47 4 Allergy Injection, Recipe completed Nayeli Ratti [place] 04/10/2024 09:39:04 4 Allergy Injection, Build-up, Initial/New Vial completed Glenn Bhalodia [place] 04/02/2024 08:51:41 4 Allergy Injection, Recipe completed Glenn Bhalodia [place] - [place] 04/02/2024 08:49:01 4 Allergy Injection, Build-up, Initial/New Vial completed Nayeli Ratti [place] 03/24/2024 15:27:16 4 Allergy Injection, Recipe completed Nayeli Ratti [place] 03/24/2024 15:19:09 4 Allergy Injection, Build-up, Initial/New Vial completed Nayeli Ratti [place] 03/13/2024 09:45:22 4 Allergy Injection, Recipe completed Nayeli Ratti [place] 03/13/2024 09:41:07 4 Allergy Injection, Build-up, Initial/New Vial completed Glenn Bhalodia [place] 03/05/2024 08:47:21 4 Allergy Injection, Recipe completed Glenn Bhalodia [place] 03/05/2024 08:41:42 4 Allergy Injection, Build-up, Initial/New Vial completed Aidee Abel [place] [facility] 02/28/2024 09:37:48 4 Allergy Injection, Recipe completed Nayeli Ratti [place] 02/28/2024 09:34:24 4 Allergy Injection, Build-up, Initial/New Vial completed Glenn Bhalodia [place] 02/20/2024 08:12:30 4 Allergy Injection, Recipe completed Glenn Bhalodia [place] 02/20/2024 08:05:30 4 Allergy Injection, Build-up, Initial/New Vial completed Glenn Bhalodia [place] 02/06/2024 08:38:48 4 Allergy Injection, Recipe completed Glenn Bhalodia [place] 02/06/2024 08:35:01 4 Allergy Injection, Build-up, Initial/New Vial completed Tyler Rollins [place] [facility] 01/31/2024 12:26:22 4 Allergy Injection, Recipe completed Aidee Hernandez Ratti [place] 01/31/2024 09:38:12 4 Allergy Injection, Build-up, Initial/New Vial completed Glenn Bhalodia [place] 01/24/2024 09:48:10 4 Allergy Injection, Recipe completed Glenn Bhalodia [place] 01/24/2024 09:42:59 4 Allergy Injection, Build-up, Initial/New Vial completed Maldonado Escalante [place] [facility] 01/17/2024 09:40:31 4 Allergy Injection, Recipe completed Maldonado Kashifeter [place] 01/17/2024 09:36:01 4 Allergy Injection, Build-up, Initial/New Vial completed Caryl Villatoro [place] 01/10/2024 14:08:44 4 Allergy Injection, Recipe completed Caryl Villatoro [place] 01/10/2024 14:06:57 4 Allergy Injection, Build-up, Initial/New Vial completed Glenn Bhalodia [place] 12/27/2023 09:55:42 4 Allergy Injection, Recipe completed Glenn Bhalodia [place] 12/27/2023 09:50:02 4 Allergy Injection, Build-up, Initial/New Vial completed Glenn Bhalodia [place] - [place] 12/18/2023 13:36:05 4 Allergy Injection, Recipe completed Glenn Bhalodia [place] 12/18/2023 13:32:01 4 Allergy Injection, Build-up, Initial/New Vial completed Glenn Bhalodia [place] 12/12/2023 08:45:41 4 Allergy Injection, Recipe completed Glenn Bhalodia [place] - [place] 12/12/2023 08:41:45 4 Allergy Injection, Build-up, Initial/New Vial completed Caryl Villatoro [place] 12/06/2023 09:46:16 4 Allergy Injection, Recipe completed Caryl Villatoro [place] 12/06/2023 09:45:47 4 Allergy Injection, Build-up, Initial/New Vial completed Glenn Bhalodia [place] 11/29/2023 09:37:17 4 Allergy Injection, Recipe completed Glenn Bhalodia [place] - [place] 11/29/2023 09:32:56 4 Allergy Injection, Build-up, Initial/New Vial completed Caryl Villatoro [place] 11/22/2023 10:28:27 4 Allergy Injection, Recipe completed Caryl Duranllana [place] - [facility] 11/22/2023 10:26:36 4 Allergy Injection, Build-up, Initial/New Vial completed Caryl Duranllana [place] - [facility] 11/15/2023 15:37:47 4 Allergy Injection, Recipe completed Caryl Duranllana [place] - [facility] 11/15/2023 15:31:59 3 Allergy Injection, Build-up, Initial/New Vial completed Dayana MORAN - .[facility] 10/30/2023 18:27:24 3 Allergy Injection, Recipe completed Dayana Valle [place] - .[facility] 10/30/2023 18:26:31 1 Other completed Malvin MORAN - .[facility] 10/18/2023 10:17:32 Imaging Results None [...] Smoking Status Never Smoker DEAN Olvera - .[facility] 07/30/2022 13:35:51 Do You Or Have You Ever Used E-cigarettes Or Vape? 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 Yes [email or web address] Information not available 10/18/2023 Cesar In Bedroom Bare Floor [email or web address] Information not available 10/18/2023 Pillows In Bedroom Synthetic [email or web address] Information not available 10/18/2023 Mattress Foam [email or web address] Information no t available 10/18/2023 Cesar In Rest Of House Hard Wood [email or web address] Information not available 10/18/2023 Do You Or Have You Ever Used Any Other Forms Of Tobacco Or Nicotine? No Information not available 10/18/2023 Sex: Unknown Functional Status None recorded. Mental Status None recorded. Family History Nothing Reported. Medical History No medical history recorded. Past Encounters Encounter ID Performer Location Encounter Start Date Encounter Closed Date Diagnosis/Indication Diagnosis SNOMED-CT Code Diagnosis ICD10 Code [id number] Fifi Rocha MD [place] [facility] [address] [place] [address],[address] [place] [id number] 1 09/03/2024 14:53:13 09/03/2024 15:23:03 Allergic rhinitis caused by pollen 32541527 J30.1 Allergic r hinitis caused by animal dander 556070219 J30.81 [id number] Luigi Mccauley MD [place] [place] [address],[address] [place] [address] 09/08/2024 13:13:25 09/09/2024 08:35:19 Allergic rhinitis caused by pollen 79035454 J30.1 Allergic r hinitis caused by animal dander 222937348 J30.81 [id number] Luigi Mccauley MD [place] [place] [address] 09/22/2024 13:19:36 09/22/2024 14:47:13 Allergic rhinitis caused by pollen 04276355 J30.1 Allergic r hinitis caused by animal dander 231360700 J30.81 [id number] Eliot Ibarra MD [place] [place] [address] 10/02/2024 13:43:22 10/03/2024 11:02:17 Allergic rhinitis caused by pollen 85878072 J30.1 Allergic r hinitis caused by animal dander 914752626 J30.81 Health Concerns Section Related Observation LastModified by Organization Detai ls LastModified Time None Recorded Concern Status LastModified by Organization Details LastModified Time None Recorded Payers Encounter Date Sequence Insurance Name Policy Number Policy Gaspar Covered Member ID Gaspar Member ID Guarantor Name 10/02/2024 1 [employer] - CHOICE (POS II) [id number] Augustus Heaton [id number] Augustus Heaton
--- OUTSIDE RECORDS SUMMARY | 2024-11-12 16:12 | XMS_ITS | Continuity of Care Document ---
Author Organization [place] - .[facility], [place]_[address]GY Address [address] [place] [address] Care Team Providers Care Grounds Supervisor Name Role Phone FAZALMEDARDODALIAMarita TATYANA Primary Care Provider Assessment No assessment recorded. Plan of Treatment Reminders Order Date Submit Date Provider Last Modified By Organization Details Last Modified Time Details Appointments Allerg y Shot 2024 01:40P M Allergy Shots @ [address] [facility] Not available Not available Not available New Patien t Visit 2024 09:00A M Demond Lamar MD Not available Not available Not available Allerg y Shot 2024 04:10P M Allergy Shots @ [address] [facility] Not available Not available Not available Allerg y Shot 2024 01:20P M Allergy Shots @ [address] [facility] Not available Not available Not available Allerg y Shot 2024 03:10P M Allergy Shots @ [address] [facility] Not available Not available Not available Office Visit 2024 03:30P M Eliot Ibarra MD Not available Not available Not available Allerg y Shot 2024 09:40A M Allergy Shots @ [address] [place] Not available Not available Not available Allerg y Shot 2024 03:00P M Allergy Shots @ [address] [place] Not available Not available Not available Allerg y Shot 2024 09:50A M All[facility] Shots @ [address] [facility] [place] Not available Not available Not available Lab [...] and Address Organization Details Recorded Time Asthma [id number] Active 022 DEAN Olvera - .[facility] 07/30/2022 13:35:40 Problem Notes None recorded. Procedures Surgical History Date Name Laterality Status Provider Name and Address Organization Details Recorded Time 4 Allergy Injection, Recipe completed Nayeli Ratti [place] - .[facility] 11/11/2024 13:16:43 4 [place] Allergy Injection, Maintenance, Subsequent Vial, 1 Vial completed Nayeli Ratti [place] - .[facility] 11/11/2024 13:19:30 4 Allergy Injection, Recipe completed Nayeli Ratti [place] - .[facility] 10/31/2024 13:21:02 4 [place] Allergy Injection, Maintenance, Subsequent Vial, 1 Vial completed [place]ayeli Ratti [place] - .[facility] 10/31/2024 13:24:32 4 Allergy Injection, Recipe completed Caryl Villatoro [place] - .[facility] 10/23/2024 14:58:47 4 [place] Allergy Injection, Maintenance, Subsequent Vial, 1 Vial completed Caryl Villatoro [place] - .[facility] 10/23/2024 14:59:20 4 Allergy Injection, Recipe completed Glenn Bhalodia [place] - .[facility] 10/15/2024 09:14:08 4 [place] Allergy Injection, Maintenance, Subsequent Vial, 1 Vial completed Glenn Bhalodia [place] - .[facility] 10/15/2024 09:16:58 4 Allergy Injection, Recipe completed Caryl Villatoro [place] - .[facility] 10/02/2024 13:45:06 4 [place] Allergy Injection, Maintenance, Subsequent Vial, 1 Vial completed Caryl Villatoro [place] - .[facility] 10/02/2024 13:58:38 4 Allergy Injection, Build-up, Initial/New Vial completed Nayeli Ratti [place] - .[facility] 09/22/2024 13:22:19 4 Allergy Injection, Recipe completed Nayeli Ratti [place] - .[facility] 09/22/2024 13:22:19 4 [place] Allergy Injection, Maintenance, Subsequent Vial, 1 Vial completed Nayeli Ratti [place] - [place] 09/22/2024 13:25:00 4 Allergy Injection, Build-up, Initial/New Vial completed [place]ayeli Ratti [place] - .[facility] 09/08/2024 13:14:11 4 Allergy Injection, Recipe completed Nayeli Ratti [place] - .[facility] 09/08/2024 13:14:11 4 [place] Allergy Injection, Maintenance, Subsequent Vial, 1 Vial completed Nayeli Ratti [place] - [place] 09/08/2024 13:17:01 4 Allergy Injection, Build-up, Initial/New Vial completed Glenn Bhalodia [place] - .[facility] 09/03/2024 15:01:22 4 Allergy Injection, Recipe completed Glenn Bhalodia [place] - .[facility] 09/03/2024 15:01:22 4 [place] Allergy Injection, Maintenance, Subsequent Vial, 1 Vial completed Glenn Bhalodia [place] - .[facility] 09/03/2024 15:01:45 4 Allergy Injection, Build-up, Initial/New Vial completed Glenn Bhalodia [place] - .[facility] 08/27/2024 13:47:20 4 Allergy Injection, Recipe completed Glenn Bhalodia [place] - .[facility] 08/27/2024 13:47:20 4 [place] Allergy Injection, Maintenance, Subsequent Vial, 1 Vial completed Glenn Bhalodia [place] - .[facility] 08/27/2024 13:51:25 4 Allergy Injection, Build-up, Initial/New Vial completed Caryljaun Villatoro [place] - .[facility] 08/22/2024 13:10:46 4 Allergy Injection, Recipe completed Caryl Villatoro [place] - [place] 08/22/2024 13:10:46 4 [place] Allergy Injection, Maintenance, Subsequent Vial, 1 Vial completed Caryl Villatoro [place] - .[facility] 08/22/2024 13:15:34 4 Allergy Injection, Build-up, Initial/New Vial completed Nayeli Ratti [place] - [place] 08/15/2024 13:14:33 4 Allergy Injection, Recipe completed Nayeli Ratti [place] - [place] 08/15/2024 13:14:33 4 [place] Allergy Injection, Maintenance, Subsequent Vial, 1 Vial completed Nayeli Ratti [place] - [place] 08/15/2024 13:18:25 4 Allergy Injection, Build-up, Initial/New Vial completed Nayeli Ratti [place] - [place] 08/08/2024 13:14:58 4 Allergy Injection, Recipe completed Nayeli Ratti [place] - [place] 08/08/2024 13:14:58 4 [place] Allergy Injection, Maintenance, Subsequent Vial, 1 Vial completed Nayeli Ratti [place] - [place] 08/08/2024 13:26:51 4 Allergy Injection, Build-up, Initial/New Vial completed Dayana Zipse [place] - .[facility] 07/29/2024 17:07:44 4 Allergy Injection, Recipe completed Dayana Zipse [place] - .[facility] 07/29/2024 17:08:27 4 [place] Allergy Injection, Maintenance, Subsequent Vial, 1 Vial completed Dayana Zipse [place] - .[facility] 07/29/2024 17:11:29 4 Allergy Injection, Build-up, Initial/New Vial completed Nayeli Ratti [place] - [place] 07/25/2024 13:00:11 4 Allergy Injection, Recipe completed Nayeli Ratti [place] - [place] 07/25/2024 12:54:22 4 Allergy Injection, Build-up, Initial/New Vial completed Nayeli Ratti [place] - [place] 07/17/2024 15:03:24 4 Allergy Injection, Recipe completed Nayeli Ratti [place] - [place] 07/17/2024 15:00:09 4 Allergy Injection, Build-up, Initial/New Vial completed Pieter Noel [place] - .[facility] 07/10/2024 14:01:31 4 Allergy Injection, Recipe completed Pieter Noel [place] - [place] 07/10/2024 13:58:56 4 Allergy Injection, Build-up, Initial/New Vial completed Nayeli Ratti [place] - [place] 07/03/2024 15:09:04 4 Allergy Injection, Recipe completed Nayeli Ratti [place] - [place] 07/03/2024 15:04:59 4 Allergy Injection, Build-up, Initial/New Vial completed Nayeli Ratti [place] - [place] 06/02/2024 13:13:08 4 Allergy Injection, Recipe completed Nayeli Ratti [place] 06/02/2024 13:06:17 4 Allergy Injection, Build-up, Initial/New Vial completed Nayeli Ratti [place] - [place] 05/30/2024 13:23:20 4 Allergy Injection, Recipe completed Nayeli Ratti [place] - [place] 05/30/2024 13:19:58 4 Allergy Injection, Build-up, Initial/New Vial completed Nayeli Ratti [place] - [place] 05/22/2024 09:53:48 4 Allergy Injection, Recipe completed Nayeli Ratti [place] - [place] 05/22/2024 09:50:32 4 Allergy Injection, Build-up, Initial/New Vial completed Nayeli Ratti [place] - [place] 05/08/2024 10:10:23 4 Allergy Injection, Recipe completed Nayeli Ratti [place] - [place] 05/08/2024 10:07:32 4 Allergy Injection, Build-up, Initial/New Vial completed Nayeli Ratti [place] - [place] 05/01/2024 10:55:39 4 Allergy Injection, Recipe completed Nayeli Ratti [place] - [place] 05/01/2024 10:53:00 4 Allergy Injection, Build-up, Initial/New Vial completed Nayeli Ratti [place] - [place] 04/15/2024 13:32:21 4 Allergy Injection, Recipe completed Nayeli Ratti [place] - [place] 04/15/2024 13:29:48 4 Allergy Injection, Build-up, Initial/New Vial completed Nayeli Ratti [place] 04/10/2024 09:41:47 4 Allergy Injection, Recipe completed Nayeli Ratti [place] - [place] 04/10/2024 09:39:04 4 Allergy Injection, Build-up, Initial/New Vial completed Glenn Bhalodia [place] - .[facility] 04/02/2024 08:51:41 4 Allergy Injection, Recipe completed Glenn Bhalodia [place] - [place] 04/02/2024 08:49:01 4 Allergy Injection, Build-up, Initial/New Vial completed Nayeli Ratti [place] - [place] 03/24/2024 15:27:16 4 Allergy Injection, Recipe completed Nayeli Ratti [place] - [place] 03/24/2024 15:19:09 4 Allergy Injection, Build-up, Initial/New Vial completed Nayeli Ratti [place] - [place] 03/13/2024 09:45:22 4 Allergy Injection, Recipe completed Nayeli Ratti [place] - [place] 03/13/2024 09:41:07 4 Allergy Injection, Build-up, Initial/New Vial completed Glenn Bhalodia [place] - [place] 03/05/2024 08:47:21 4 Allergy Injection, Recipe completed Glenn Bhalodia [place] - [place] 03/05/2024 08:41:42 4 Allergy Injection, Build-up, Initial/New Vial completed Aidee Abel [place] - .[facility] 02/28/2024 09:37:48 4 Allergy Injection, Recipe completed Nayeli Ratti [place] 02/28/2024 09:34:24 4 Allergy Injection, Build-up, Initial/New Vial completed Glenn Bhalodia [place] - .[facility] 02/20/2024 08:12:30 4 Allergy Injection, Recipe completed Glenn Bhalodia [place] - [place] 02/20/2024 08:05:30 4 Allergy Injection, Build-up, Initial/New Vial completed Glenn Bhalodia [place] - .[facility] 02/06/2024 08:38:48 4 Allergy Injection, Recipe completed Glenn Bhalodia [place] - [place] 02/06/2024 08:35:01 4 Allergy Injection, Build-up, Initial/New Vial completed Tyler Rollins [place] - .[facility] 01/31/2024 12:26:22 4 Allergy Injection, Recipe completed Aidee Hernandez Ratti [place] - .[facility] 01/31/2024 09:38:12 4 Allergy Injection, Build-up, Initial/New Vial completed Glenn Bhalodia [place] - [place] 01/24/2024 09:48:10 4 Allergy Injection, Recipe completed Glenn Bhalodia [place] - [place] 01/24/2024 09:42:59 4 Allergy Injection, Build-up, Initial/New Vial completed Maldonado Escalante [place] - .[facility] 01/17/2024 09:40:31 4 Allergy Injection, Recipe completed Maldonado Kashifeter [place] - .[facility] 01/17/2024 09:36:01 4 Allergy Injection, Build-up, Initial/New Vial completed Caryl Villatoro [place] - [place] 01/10/2024 14:08:44 4 Allergy Injection, Recipe completed Caryl Villatoro [place] - [place] 01/10/2024 14:06:57 4 Allergy Injection, Build-up, Initial/New Vial completed Glenn Bhalodia [place] - .[facility] 12/27/2023 09:55:42 4 Allergy Injection, Recipe completed Glenn Bhalodia [place] - [place] 12/27/2023 09:50:02 4 Allergy Injection, Build-up, Initial/New Vial completed Glenn Bhalodia [place] - .[facility] 12/18/2023 13:36:05 4 Allergy Injection, Recipe completed Glenn Bhalodia [place] - [place] 12/18/2023 13:32:01 4 Allergy Injection, Build-up, Initial/New Vial completed Glenn Bhalodia [place] - .[facility] 12/12/2023 08:45:41 4 Allergy Injection, Recipe completed Glenn Bhalodia [place] - [place] 12/12/2023 08:41:45 4 Allergy Injection, Build-up, Initial/New Vial completed Caryl Villatoro [place] - [place] 12/06/2023 09:46:16 4 Allergy Injection, Recipe completed Caryl Villatoro [place] - [place] 12/06/2023 09:45:47 4 Allergy Injection, Build-up, Initial/New Vial completed Glenn Bhalodia [place] - [place] 11/29/2023 09:37:17 4 Allergy Injection, Recipe completed Glenn Bhalodia [place] - [place] 11/29/2023 09:32:56 4 Allergy Injection, Build-up, Initial/New Vial completed Caryl Villatoro [place] - [place] 11/22/2023 10:28:27 4 Allergy Injection, Recipe completed Caryl Duranllana [place] - .[facility] 11/22/2023 10:26:36 4 Allergy Injection, Build-up, Initial/New Vial completed Caryl Duranllana [place] - .[facility] 11/15/2023 15:37:47 4 Allergy Injection, Recipe completed Caryl Duranllana [place] - [place] 11/15/2023 15:31:59 3 Allergy Injection, Build-up, Initial/New Vial completed Dayana MORAN - .[facility] 10/30/2023 18:27:24 3 Allergy Injection, Recipe completed Dayana Valle [place] - .[facility] 10/30/2023 18:26:31 1 Other completed Malvin MORAN - .[facility] 10/18/2023 10:17:32 Imaging Results [...] Smoking Status Never Smoker DEAN Olvera - .[facility] 07/30/2022 13:35:51 Do You Or Have You Ever Used E-cigarettes Or Vape? 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 Yes [email or web address] Information not available 10/18/2023 Cesar In Bedroom Bare Floor [email or web address] Information not available 10/18/2023 Pillows In Bedroom Synthetic [email or web address] Information not available 10/18/2023 Mattress Foam [email or web address] Information no t available 10/18/2023 Cesar In [...] Diagnosis/Indication Diagnosis SNOMED-CT Code Diagnosis ICD10 Code [id number] Fifi Camara_5 [address] [place] [address],[address] [place] [address] 08/22/2024 13:07:02 08/23/2024 07:54:07 Allergic rhinitis caused by pollen 28745489 J30.1 Allergic r hinitis caused by animal dander 807445162 J30.81 [id number] Fifi Camara_5 [address] [place] [address],[address] [place] [address] 08/27/2024 13:45:07 08/27/2024 14:54:56 Allergic rhinitis caused by pollen 44100271 J30.1 Allergic r hinitis caused by animal dander 532029594 J30.81 [id number] Fifi Rocha MD West[place]le_5 [address] [place] [address],[address] [place] [address] 09/03/2024 14:53:13 09/03/2024 15:23:03 Allergic rhinitis caused by pollen 12708687 J30.1 Allergic r hinitis caused by animal dander [id number] J30.81 [id number] Luigi Mccauley MD Bellerosesreekanth_5 [address] [place] [address],[address] [place] [id number] 1 09/08/2024 13:13:25 09/09/2024 08:35:19 Allergic rhinitis caused by pollen 38490609 J30.1 Allergic r hinitis caused by animal dander 274173759 J30.81 [id number] Luigi Mccauley MD Belleroserseekanth_5 [address] [place] [address],[address] [place] [address] 09/22/2024 13:19:36 09/22/2024 14:47:13 Allergic rhinitis caused by pollen 59693278 J30.1 Allergic r hinitis caused by animal dander 877226538 J30.81 Health Concerns Section Related Observation LastModified by Organization Detai ls LastModified Time None Recorded Concern Status LastModified by Organization Details LastModified Time None Recorded Payers Encounter Date Sequence Insurance Name Policy Number Policy Gaspar Covered Member ID Gaspar Member ID Guarantor Name 09/22/2024 1 [employer] - CHOICE (POS II) [id number] Augustus Heaton [id number] Augustus Heaton
--- OUTSIDE RECORDS SUMMARY | 2024-11-12 16:13 | XMS_ITS | Continuity of Care Document ---
Author Organization [place] - .[facility], [place] Address [address] [place] [address] Care Team Providers Care Plater Barrel Name Role Phone FAZALMEDARDODALIAMarita TATYANA Primary Care Provider Assessment No assessment recorded. Plan of Treatment Reminders Order Date Submit Date Provider Last Modified By Organization Details Last Modified Time Details Appointments Allerg y Shot 2024 01:40P M Allergy Shots @ [address] [facility] Not available Not available Not available New Patien t Visit 2024 09:00A M Demond Lamar MD Not available Not available Not available Allerg y Shot 2024 04:10P M Allergy Shots @ [address] [facility] Not available Not available Not available Allerg y Shot 2024 01:20P M Allergy Shots @ [address] [facility] Not available Not available Not available Allerg y Shot 2024 03:10P M Allergy Shots @ [address] [facility] Not available Not available Not available Office Visit 2024 03:30P M Eliot Ibarra MD Not available Not available Not available Allerg y Shot 2024 09:40A M Allergy Shots @ [address] [place] Not available Not available Not available Allerg y Shot 2024 03:00P M All[facility]ots @ [address] [place] Not available Not available Not available Allerg y Shot 2024 09:50A M All[facility] Shots @ [address] [facility] [place] Not available Not available Not available Lab [...] and Address Organization Details Recorded Time Asthma [id number] Active 022 DEAN Olvera - .[facility] 07/30/2022 13:35:40 Problem Notes None recorded. Procedures Surgical History Date Name Laterality Status Provider Name and Address Organization Details Recorded Time 4 Allergy Injection, Recipe completed Nayeli Ratti [place] - .[facility] 11/11/2024 13:16:43 4 [place] Allergy Injection, Maintenance, Subsequent Vial, 1 Vial completed [place]ayeli Ratti [place] - [facility] 11/11/2024 13:19:30 4 Allergy Injection, Recipe completed Nayeli Ratti [place] - [facility] 10/31/2024 13:21:02 4 [place] Allergy Injection, Maintenance, Subsequent Vial, 1 Vial completed Nayeli Ratti [place] - [place] 10/31/2024 13:24:32 4 Allergy Injection, Recipe completed Caryl Villatoro [place] - [facility] 10/23/2024 14:58:47 4 [place] Allergy Injection, Maintenance, Subsequent Vial, 1 Vial completed Caryl Villatoro [place] - [place] 10/23/2024 14:59:20 4 Allergy Injection, Recipe completed Glenn Bhalodia [place] - .[facility] 10/15/2024 09:14:08 4 [place] Allergy Injection, Maintenance, Subsequent Vial, 1 Vial completed Glenn Bhalodia [place] - .[facility] 10/15/2024 09:16:58 4 Allergy Injection, Recipe completed Caryl Villatoro [place] - [facility] 10/02/2024 13:45:06 4 [place] Allergy Injection, Maintenance, Subsequent Vial, 1 Vial completed Caryl Villatoro [place] - [place] 10/02/2024 13:58:38 4 Allergy Injection, Build-up, Initial/New Vial completed Nayeli Ratti [place] - .[facility] 09/22/2024 13:22:19 4 Allergy Injection, Recipe completed Nayeli Ratti [place] - [facility] 09/22/2024 13:22:19 4 [place] Allergy Injection, Maintenance, Subsequent Vial, 1 Vial completed Nayeli Ratti [place] - [place] 09/22/2024 13:25:00 4 Allergy Injection, Build-up, Initial/New Vial [place]ayeli Ratti [place] - [facility] 09/08/2024 13:14:11 4 Allergy Injection, Recipe completed Nayeli Ratti [place] - [facility] 09/08/2024 13:14:11 [place] Allergy Injection, Maintenance, Subsequent Vial, 1 Vial completed Nayeli Ratti [place] - [facility] 09/08/2024 13:17:01 4 Allergy Injection, Build-up, Initial/New Vial completed Glenn Bhalodia [place] - .[facility] 09/03/2024 15:01:22 4 Allergy Injection, Recipe completed Glenn Bhalodia [place] - [place] 09/03/2024 15:01:22 4 [place] Allergy Injection, Maintenance, Subsequent Vial, 1 Vial completed Glenn Bhalodia [place] - .[facility] 09/03/2024 15:01:45 4 Allergy Injection, Build-up, Initial/New Vial completed Glenn Bhalodia [place] - [facility] 08/27/2024 13:47:20 4 Allergy Injection, Recipe completed Glenn Bhalodia [place] - [facility] 08/27/2024 13:47:20 4 [place] Allergy Injection, Maintenance, Subsequent Vial, 1 Vial completed Glenn Bhalodia [place] - .[facility] 08/27/2024 13:51:25 4 Allergy Injection, Build-up, Initial/New Vial completed Caryljaun Villatoro [place] - [place] 08/22/2024 13:10:46 4 Allergy Injection, Recipe completed Caryl Villatoro [place] - [facility] 08/22/2024 13:10:46 [place] Allergy Injection, Maintenance, Subsequent Vial, 1 Vial completed Caryl Villatoro [place] - [place] 08/22/2024 13:15:34 4 Allergy Injection, Build-up, Initial/New Vial completed Nayeli Ratti [place] - [place] 08/15/2024 13:14:33 4 Allergy Injection, Recipe completed Nayeli Ratti [place] - [place] 08/15/2024 13:14:33 4 [place] Allergy Injection, Maintenance, Subsequent Vial, 1 Vial completed Nayeli Ratti [place] - [place] 08/15/2024 13:18:25 4 Allergy Injection, Build-up, Initial/New Vial completed Nayeli Ratti [place] - [place] 08/08/2024 13:14:58 4 Allergy Injection, Recipe completed Nayeli Ratti [place] 08/08/2024 13:14:58 4 [place] Allergy Injection, Maintenance, Subsequent Vial, 1 Vial completed Nayeli Ratti [place] - [place] 08/08/2024 13:26:51 4 Allergy Injection, Build-up, Initial/New Vial completed Dayana Zipse [place] - .[facility] 07/29/2024 17:07:44 4 Allergy Injection, Recipe completed Dayana Zipse [place] - [place] 07/29/2024 17:08:27 4 [place] Allergy Injection, Maintenance, Subsequent Vial, 1 Vial completed Dayana Zipse [place] - [facility] 07/29/2024 17:11:29 4 Allergy Injection, Build-up, Initial/New Vial completed Nayeli Ratti [place] - [place] 07/25/2024 13:00:11 4 Allergy Injection, Recipe completed Nayeli Ratti [place] - [place] 07/25/2024 12:54:22 4 Allergy Injection, Build-up, Initial/New Vial completed Nayeli Ratti [place] - [place] 07/17/2024 15:03:24 4 Allergy Injection, Recipe completed Nayeli Ratti [place] - [place] 07/17/2024 15:00:09 4 Allergy Injection, Build-up, Initial/New Vial completed Pieter Noel [place] - .[facility] 07/10/2024 14:01:31 4 Allergy Injection, Recipe completed Pieter Noel [place] - [place] 07/10/2024 13:58:56 4 Allergy Injection, Build-up, Initial/New Vial completed Nayeli Ratti [place] - [place] 07/03/2024 15:09:04 4 Allergy Injection, Recipe completed Nayeli Ratti [place] - [place] 07/03/2024 15:04:59 4 Allergy Injection, Build-up, Initial/New Vial completed Nayeli Ratti [place] - [place] 06/02/2024 13:13:08 4 Allergy Injection, Recipe completed Nayeli Ratti [place] - [place] 06/02/2024 13:06:17 4 Allergy Injection, Build-up, Initial/New Vial completed Nayeli Ratti [place] - [place] 05/30/2024 13:23:20 4 Allergy Injection, Recipe completed Nayeli Ratti [place] - [place] 05/30/2024 13:19:58 4 Allergy Injection, Build-up, Initial/New Vial completed Nayeli Ratti [place] - [place] 05/22/2024 09:53:48 4 Allergy Injection, Recipe completed Nayeli Ratti [place] - [place] 05/22/2024 09:50:32 4 Allergy Injection, Build-up, Initial/New Vial completed Nayeli Ratti [place] - [place] 05/08/2024 10:10:23 4 Allergy Injection, Recipe completed Nayeli Ratti [place] - [place] 05/08/2024 10:07:32 4 Allergy Injection, Build-up, Initial/New Vial completed Nayeli Ratti [place] - [place] 05/01/2024 10:55:39 4 Allergy Injection, Recipe completed Nayeli Ratti [place] - [place] 05/01/2024 10:53:00 4 Allergy Injection, Build-up, Initial/New Vial completed Nayeli Ratti [place] - [place] 04/15/2024 13:32:21 4 Allergy Injection, Recipe completed Nayeli Ratti [place] - [place] 04/15/2024 13:29:48 4 Allergy Injection, Build-up, Initial/New Vial completed Nayeli Ratti [place] - [place] 04/10/2024 09:41:47 4 Allergy Injection, Recipe completed Nayeli Ratti [place] - [place] 04/10/2024 09:39:04 4 Allergy Injection, Build-up, Initial/New Vial completed Glenn Bhalodia [place] - .[facility] 04/02/2024 08:51:41 4 Allergy Injection, Recipe completed Glenn Bhalodia [place] - [place] 04/02/2024 08:49:01 4 Allergy Injection, Build-up, Initial/New Vial completed Nayeli Ratti [place] - [place] 03/24/2024 15:27:16 4 Allergy Injection, Recipe completed Nayeli Ratti [place] - [place] 03/24/2024 15:19:09 4 Allergy Injection, Build-up, Initial/New Vial completed Nayeli Ratti [place] - [place] 03/13/2024 09:45:22 4 Allergy Injection, Recipe completed Nayeli Ratti [place] - [place] 03/13/2024 09:41:07 4 Allergy Injection, Build-up, Initial/New Vial completed Glenn Bhalodia [place] - [place] 03/05/2024 08:47:21 4 Allergy Injection, Recipe completed Glenn Bhalodia [place] - [place] 03/05/2024 08:41:42 4 Allergy Injection, Build-up, Initial/New Vial completed Aidee Abel [place] - [facility] 02/28/2024 09:37:48 4 Allergy Injection, Recipe completed Nayeli Ratti [place] - [place] 02/28/2024 09:34:24 4 Allergy Injection, Build-up, Initial/New Vial completed Glenn Bhalodia [place] - [place] 02/20/2024 08:12:30 4 Allergy Injection, Recipe completed Glenn Bhalodia [place] - [place] 02/20/2024 08:05:30 4 Allergy Injection, Build-up, Initial/New Vial completed Glenn Bhalodia [place] - [place] 02/06/2024 08:38:48 4 Allergy Injection, Recipe completed Glenn Bhalodia [place] - [place] 02/06/2024 08:35:01 4 Allergy Injection, Build-up, Initial/New Vial completed Tyler Rollins [place] - .[facility] 01/31/2024 12:26:22 4 Allergy Injection, Recipe completed Aidee Hernandez Ratti [place] - [facility] 01/31/2024 09:38:12 4 Allergy Injection, Build-up, Initial/New Vial completed Glenn Bhalodia [place] - [place] 01/24/2024 09:48:10 4 Allergy Injection, Recipe completed Glenn Bhalodia [place] - [place] 01/24/2024 09:42:59 4 Allergy Injection, Build-up, Initial/New Vial completed Maldonado Escalante [place] - .[facility] 01/17/2024 09:40:31 4 Allergy Injection, Recipe completed Maldonado Kashifeter [place] - [facility] 01/17/2024 09:36:01 4 Allergy Injection, Build-up, Initial/New Vial completed Caryl Villatoro [place] - [place] 01/10/2024 14:08:44 4 Allergy Injection, Recipe completed Caryl Villatoro [place] - [place] 01/10/2024 14:06:57 4 Allergy Injection, Build-up, Initial/New Vial completed Glenn Bhalodia [place] - [place] 12/27/2023 09:55:42 4 Allergy Injection, Recipe completed Glenn Bhalodia [place] - [place] 12/27/2023 09:50:02 4 Allergy Injection, Build-up, Initial/New Vial completed Glenn Bhalodia [place] - [place] 12/18/2023 13:36:05 4 Allergy Injection, Recipe completed Glenn Bhalodia [place] - [place] 12/18/2023 13:32:01 4 Allergy Injection, Build-up, Initial/New Vial completed Glenn Bhalodia [place] - [place] 12/12/2023 08:45:41 4 Allergy Injection, Recipe completed Glenn Bhalodia [place] - [place] 12/12/2023 08:41:45 4 Allergy Injection, Build-up, Initial/New Vial completed Caryl Villatoro [place] - [place] 12/06/2023 09:46:16 4 Allergy Injection, Recipe completed Caryl Villatoro [place] - [place] 12/06/2023 09:45:47 4 Allergy Injection, Build-up, Initial/New Vial completed Glenn Bhalodia [place] - [place] 11/29/2023 09:37:17 4 Allergy Injection, Recipe completed Glenn Bhalodia [place] - [place] 11/29/2023 09:32:56 4 Allergy Injection, Build-up, Initial/New Vial completed Caryl Villatoro [place] - [place] 11/22/2023 10:28:27 4 Allergy Injection, Recipe completed Caryl Duranllana [place] - .[facility] 11/22/2023 10:26:36 4 Allergy Injection, Build-up, Initial/New Vial completed Caryl Duranllana [place] - [facility] 11/15/2023 15:37:47 4 Allergy Injection, Recipe completed Caryl Duranllana [place] - [facility] 11/15/2023 15:31:59 3 Allergy Injection, Build-up, Initial/New Vial completed Dayana MORAN - .[facility] 10/30/2023 18:27:24 3 Allergy Injection, Recipe completed Dayana Valle [place] - .[facility] 10/30/2023 18:26:31 1 Other completed Malvin MORAN - .[facility] 10/18/2023 10:17:32 Imaging Results None recorded. Procedure [...] Smoking Status Never Smoker DEAN Olvera - .[facility] 07/30/2022 13:35:51 Do You Or Have You Ever Used E-cigarettes Or Vape? 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 Yes Information not available 10/18/2023 Cesar In Bedroom Bare Floor [email or web address] Information not available 10/18/2023 Pillows In Bedroom Synthetic Information not available 10/18/2023 Mattress Foam [email or web address] Information no t available 10/18/2023 Cesar In Rest Of House Hard Wood [email or web address] Information not available 10/18/2023 Do You Or Have You Ever Used Any Other Forms Of Tobacco Or Nicotine? No Information not available 10/18/2023 Sex: Unknown Functional Status None recorded. Mental Status None recorded. Family History Nothing Reported. Medical History No medical history recorded. Past Encounters Encounter ID Performer Location Encounter Start Date Encounter Closed Date Diagnosis/Indication Diagnosis SNOMED-CT Code Diagnosis ICD10 Code [id number] Fifi Rocha MD [place] [facility] [address] [place] [address],[address] [place] [id number] 1 08/08/2024 13:09:14 08/11/2024 11:43:54 Allergic rhinitis caused by pollen 06379511 J30.1 Allergic r hinitis caused by animal dander 670460352 J30.81 [id number] Luigi Mccauley MD [place] [facility] [address] [place] [address],[address] [place] [address] 08/15/2024 13:08:06 08/18/2024 13:35:45 Allergic rhinitis caused by pollen 79141614 J30.1 Allergic r hinitis caused by animal dander 162588013 J30.81 [id number] Fifi Camara_[address] [place] [address],[address] [place] [address] 08/22/2024 13:07:02 08/23/2024 07:54:07 Allergic rhinitis caused by pollen 62251796 J30.1 Allergic r hinitis caused by animal dander 333537720 J30.81 [id number] Fifi Camara_[address] [place] [address],[address] [place] [address] 08/27/2024 13:45:07 08/27/2024 14:54:56 Allergic rhinitis caused by pollen 66244230 J30.1 Allergic r hinitis caused by animal dander 721863369 J30.81 [id number] Fifi Camara_[address] [place] [address],[address] [place] [address] 09/03/2024 14:53:13 09/03/2024 15:23:03 Allergic rhinitis caused by pollen 14166717 J30.1 Allergic r hinitis caused by animal dander 357694205 J30.81 Health Concerns Section Related Observation LastModified by Organization Detai ls LastModified Time None Recorded Concern Status LastModified by Organization Details LastModified Time None Recorded Payers Encounter Date Sequence Insurance Name Policy Number Policy Gaspar Covered Member ID Gaspar Member ID Guarantor Name 09/03/2024 1 [employer] - CHOICE (POS II) [id number] Augustus Heaton [id number] Augustus Heaton
--- OUTSIDE RECORDS SUMMARY | 2024-11-12 16:13 | XMS_ITS | Continuity of Care Document ---
Author Organization [place] - .[facility], [place] Address [address] [place] [address] Care Team Providers Care Sales Management Intern Name Role Phone FAZALMEDARDODALIAMarita TATYANA Primary Care Provider Assessment No assessment recorded. Plan of Treatment Reminders Order Date Submit Date Provider Last Modified By Organization Details Last Modified Time Details Appointments Allerg y Shot 2024 01:40P M Allergy Shots @ [address] [facility] Not available Not available Not available New Patien t Visit 2024 09:00A M Demond Lamar MD Not available Not available Not available Allerg y Shot 2024 04:10P M Allergy Shots @ [address] [facility] Not available Not available Not available Allerg y Shot 2024 01:20P M Allergy Shots @ [address] [facility] Not available Not available Not available Allerg y Shot 2024 03:10P M Allergy Shots @ [address] [facility] Not available Not available Not available Office Visit 2024 03:30P M Eliot Ibarra MD Not available Not available Not available Allerg y Shot 2024 09:40A M Allergy Shots @ [address] [place] Not available Not available Not available Allerg y Shot 2024 03:00P M Allergy Shots @ [address] [place] Not available Not available Not available Allerg y Shot 2024 09:50A M [facility] @ [address] [facility] [place] Not available Not available Not available Lab [...] and Address Organization Details Recorded Time Asthma [id number] Active 022 DEAN Ol[place] - .[facility] 07/30/2022 13:35:40 Problem Notes None recorded. Procedures Surgical History Date Name Laterality Status Provider Name and Address Organization Details Recorded Time 4 Allergy Injection, Recipe completed Nayeli Ratti [place] - .[facility] 11/11/2024 13:16:43 4 [place] Allergy Injection, Maintenance, Subsequent Vial, 1 Vial completed Nayeli Ratti [place] [facility] 11/11/2024 13:19:30 4 Allergy Injection, Recipe completed Nayeli Ratti [place] [facility] 10/31/2024 13:21:02 4 [place] Allergy Injection, Maintenance, Subsequent Vial, 1 Vial completed Nayeli Ratti [place] 10/31/2024 13:24:32 4 Allergy Injection, Recipe completed Caryl Villatoro [place] .[facility] 10/23/2024 14:58:47 4 [place] Allergy Injection, Maintenance, Subsequent Vial, 1 Vial completed Caryl Villatoro [place] [facility] 10/23/2024 14:59:20 4 Allergy Injection, Recipe completed Glenn Bhalodia [place] - .[facility] 10/15/2024 09:14:08 4 [place] Allergy Injection, Maintenance, Subsequent Vial, 1 Vial completed Glenn Bhalodia [place] - .[facility] 10/15/2024 09:16:58 4 Allergy Injection, Recipe completed Caryl Villatoro [place] .[facility] 10/02/2024 13:45:06 4 [place] Allergy Injection, Maintenance, Subsequent Vial, 1 Vial completed Caryl Villatoro [place] 10/02/2024 13:58:38 4 Allergy Injection, Build-up, Initial/New Vial completed Nayeli Ratti [place] [facility] 09/22/2024 13:22:19 4 Allergy Injection, Recipe completed Nayeli Ratti [place] [facility] 09/22/2024 13:22:19 4 [place] Allergy Injection, Maintenance, Subsequent Vial, 1 Vial completed Nayeli Ratti [place] [facility] 09/22/2024 13:25:00 4 Allergy Injection, Build-up, Initial/New Vial completed Nayeli Ratti [place] - [facility] 09/08/2024 13:14:11 4 Allergy Injection, Recipe completed Nayeli Ratti [place] [facility] 09/08/2024 13:14:11 4 [place] Allergy Injection, Maintenance, Subsequent Vial, 1 Vial completed Nayeli Ratti [place] [facility] 09/08/2024 13:17:01 4 Allergy Injection, Build-up, Initial/New Vial completed Glenn Bhalodia [place] .[facility] 09/03/2024 15:01:22 4 Allergy Injection, Recipe completed Glenn Bhalodia [place] .[facility] 09/03/2024 15:01:22 4 [place] Allergy Injection, Maintenance, Subsequent Vial, 1 Vial completed Glenn Bhalodia [place] [facility] 09/03/2024 15:01:45 4 Allergy Injection, Build-up, Initial/New Vial completed Glenn Bhalodia [place] .[facility] 08/27/2024 13:47:20 4 Allergy Injection, Recipe completed Glenn Bhalodia [place] .[facility] 08/27/2024 13:47:20 4 [place] Allergy Injection, Maintenance, Subsequent Vial, 1 Vial completed Glenn Bhalodia [place] [facility] 08/27/2024 13:51:25 4 Allergy Injection, Build-up, Initial/New Vial completed Caryljaun Villatoro [place] 08/22/2024 13:10:46 4 Allergy Injection, Recipe completed Caryl Villatoro [place] 08/22/2024 13:10:46 4 [place] Allergy Injection, Maintenance, Subsequent Vial, 1 Vial completed Caryl Villatoro [place] 08/22/2024 13:15:34 4 Allergy Injection, Build-up, Initial/New Vial completed Nayeli Ratti [place] 08/15/2024 13:14:33 4 Allergy Injection, Recipe completed Nayeli Ratti [place] 08/15/2024 13:14:33 4 [place] Allergy Injection, Maintenance, Subsequent Vial, 1 Vial completed Nayeli Ratti [place] 08/15/2024 13:18:25 4 Allergy Injection, Build-up, Initial/New Vial completed Nayeli Ratti [place] 08/08/2024 13:14:58 4 Allergy Injection, Recipe completed Nayeli Ratti [place] 08/08/2024 13:14:58 4 [place] Allergy Injection, Maintenance, Subsequent Vial, 1 Vial completed Nayeli Ratti [place] 08/08/2024 13:26:51 4 Allergy Injection, Build-up, Initial/New Vial completed Dayana Zipse [place] .[facility] 07/29/2024 17:07:44 4 Allergy Injection, Recipe completed Dayana Zipse [place] .[facility] 07/29/2024 17:08:27 4 [place] Allergy Injection, Maintenance, Subsequent Vial, 1 Vial [...] Initial/New Vial completed Aidee Abel [place] [facility] [...] Recipe completed Aidee Hernandez [place] [facility] Injection, Recipe completed Maldonado Kashifeter [place] [facility] [...] Injection, Recipe completed Caryl Duranllana [place] .[facility] 11/22/2023 10:26:36 4 Allergy Injection, Build-up, Initial/New Vial completed Caryl Duranllana [place] [facility] 11/15/2023 15:37:47 4 Allergy Injection, Recipe completed Caryl Duranllana [place] [facility] 11/15/2023 15:31:59 3 Allergy Injection, Build-up, Initial/New Vial completed Dayana MOR[place] - .[facility] 10/30/2023 18:27:24 3 Allergy Injection, Recipe completed Dayana Valle [place] .[facility] 10/30/2023 [...] [email or web address] Information not available 08/18/2022 Housing House [email or web address] Information no t available 10/18/2023 Heating Forced Air [email or web address] Information no t available 10/18/2023 Air Conditioning Forced Air/Central [email or web address] Information not available 10/18/2023 Basement Damp [email or web address] Information no t available 10/18/2023 Pets Yes (for 5+ Years) 2 Dogs [email or web address] Information not available 10/18/2023 Pets Allowed In Bedroom? Yes Information not available 10/18/2023 Cesar In Bedroom Bare Floor [email or web address] Information not available 10/18/2023 Pillows In Bedroom Synthetic [email or web address] Information not available 10/18/2023 Mattress Foam [email or web address] Information no t available 10/18/2023 Cesar In Rest Of House Hard Wood [email or web address] Information not available 10/18/2023 Do You Or Have You Ever Used Any Other Forms Of Tobacco Or Nicotine? No Information not available 10/18/2023 Sex: Unknown Functional Status None recorded. Mental Status None recorded. Family History Nothing Reported. Medical History No medical history recorded. Past Encounters Encounter ID Performer Location Encounter Start Date Encounter Closed Date Diagnosis/Indication Diagnosis SNOMED-CT Code Diagnosis ICD10 Code [id number] Luigi Camara_5 [address] [facility] [address] [place] [address],[address] [place] [id number] 1 07/25/2024 12:51:06 07/28/2024 10:45:55 Allergic rhinitis caused by pollen 37469132 J30.1 [id number] Eliot Camara_5 [address] [facility] [address] [place] [address],[address] [place] [address] 07/29/2024 17:06:43 07/31/2024 08:55:49 [id number] Fifi Camara_5 [address] [address] [place] [address],[address] [place] [id number] 1 08/08/2024 13:09:14 08/11/2024 11:43:54 Allergic rhinitis caused by pollen 77098549 J30.1 Allergic r hinitis caused by animal dander 028527177 J30.81 [id number] Luigi Mccauley MD Holleysreekanth_5 [address] [facility] [address] [place] [address],[address] [place] [id number] 1 08/15/2024 13:08:06 08/18/2024 13:35:45 Allergic rhinitis caused by pollen 39777362 J30.1 Allergic r hinitis caused by animal dander 281921499 J30.81 [id number] Fifi Camara_5 [address] [address] [place] [address],[address] [place] [id number] 1 08/22/2024 13:07:02 08/23/2024 07:54:07 Allergic rhinitis caused by pollen 71668929 J30.1 Allergic r hinitis caused by animal dander 159563500 J30.81 Health Concerns Section Related Observation LastModified by Organization Detai ls LastModified Time None Recorded Concern Status LastModified by Organization Details LastModified Time None Recorded Payers Encounter Date Sequence Insurance Name Policy Number Policy Gaspar Covered Member ID Gaspar Member ID Guarantor Name 08/22/2024 1 [employer] - CHOICE (POS II) [id number] Augustus Heaton [id number] Augustus Heaton
--- OUTSIDE RECORDS SUMMARY | 2024-11-12 16:13 | XMS_ITS | Continuity of Care Document ---
Author Organization [place] - .[facility], [place] Address [address] [place] [address] Care Team Providers Care Rip/Mould Operator Name Role Phone FAZALMEDARDODALIAMarita TATYANA Primary Care Provider [phone] Assessment No assessment recorded. Plan of Treatment [...] 2024 09:40A M Allergy Shots @ [address] [place] Not available Not available Not available Allerg y Shot 2024 03:00P M Allergy Shots @ [address] [place] Not available Not available Not available Allerg y Shot 2024 09:50A M Allergy Shots @ [address] [facility] [facility] [place] Not available Not available Not available Lab [...] and Address Organization Details Recorded Time Asthma [id number] Active 022 DEAN Olvera - .[facility] 07/30/2022 13:35:40 Problem Notes None recorded. Procedures Surgical History Date Name Laterality Status Provider Name and Address Organization Details Recorded Time 4 Allergy Injection, Recipe completed Nayeli Ratti [place] - .[facility] 11/11/2024 13:16:43 4 [place] Allergy Injection, Maintenance, Subsequent Vial, 1 Vial completed [place]ayeli Ratti [place] - .[facility] 11/11/2024 13:19:30 4 Allergy Injection, Recipe completed Nayeli Ratti [place] - .[facility] 10/31/2024 13:21:02 4 [place] Allergy Injection, Maintenance, Subsequent Vial, 1 Vial completed Nayeli Ratti [place] - .[facility] 10/31/2024 13:24:32 4 Allergy Injection, Recipe completed Caryl Villatoro [place] - .[facility] 10/23/2024 14:58:47 4 [place] Allergy Injection, Maintenance, Subsequent Vial, 1 Vial completed Caryl Villatoro [place] - .[facility] 10/23/2024 14:59:20 4 Allergy Injection, Recipe completed Glenn Bhalodia [place] - .[facility] 10/15/2024 09:14:08 4 [place] Allergy Injection, Maintenance, Subsequent Vial, 1 Vial completed Glenn Bhalodia [place] - .[facility] 10/15/2024 09:16:58 4 Allergy Injection, Recipe completed Caryl Villatoro [place] - .[facility] 10/02/2024 13:45:06 4 [place] Allergy Injection, Maintenance, Subsequent Vial, 1 Vial completed Caryl Villatoro [place] - .[facility] 10/02/2024 13:58:38 4 Allergy Injection, Build-up, Initial/New Vial completed Nayeli Ratti [place] - .[facility] 09/22/2024 13:22:19 4 Allergy Injection, Recipe completed Nayeli Ratti [place] - [facility] 09/22/2024 13:22:19 4 [place] Allergy Injection, Maintenance, Subsequent Vial, 1 Vial completed Nayeli Ratti [place] - [place] 09/22/2024 13:25:00 4 Allergy Injection, Build-up, Initial/New Vial completed [place]ayeli Ratti [place] - [facility] 09/08/2024 13:14:11 4 Allergy Injection, Recipe completed Nayeli Ratti [place] - .[facility] 09/08/2024 13:14:11 4 [place] Allergy Injection, Maintenance, Subsequent Vial, 1 Vial completed Nayeli Ratti [place] - [place] 09/08/2024 13:17:01 4 Allergy Injection, Build-up, Initial/New Vial completed Glenn Bhalodia [place] - .[facility] 09/03/2024 15:01:22 4 Allergy Injection, Recipe completed Glenn Bhalodia [place] - .[facility] 09/03/2024 15:01:22 4 [place] Allergy Injection, Maintenance, Subsequent Vial, 1 Vial completed Glenn Bhalodia [place] - [facility] 09/03/2024 15:01:45 4 Allergy Injection, Build-up, Initial/New Vial completed Glenn Bhalodia [place] - .[facility] 08/27/2024 13:47:20 4 Allergy Injection, Recipe completed Glenn Bhalodia [place] - [facility] 08/27/2024 13:47:20 4 [place] Allergy Injection, Maintenance, Subsequent Vial, 1 Vial completed Glenn Bhalodia [place] - .[facility] 08/27/2024 13:51:25 4 Allergy Injection, Build-up, Initial/New Vial completed Caryljaun Villatoro [place] - .[facility] 08/22/2024 13:10:46 4 Allergy Injection, Recipe completed Caryl Villatoro [place] - [facility] 08/22/2024 13:10:46 4 [place] Allergy Injection, Maintenance, Subsequent Vial, 1 Vial completed Caryl Villatoro [place] - [facility] 08/22/2024 13:15:34 4 Allergy Injection, Build-up, Initial/New Vial completed Nayeli Ratti [place] - [place] 08/15/2024 13:14:33 4 Allergy Injection, Recipe completed Nayeli Ratti [place] [facility] 08/15/2024 13:14:33 4 [place] Allergy Injection, Maintenance, Subsequent Vial, 1 Vial completed Nayeli Ratti [place] 08/15/2024 13:18:25 4 Allergy Injection, Build-up, Initial/New Vial completed Nayeli Ratti [place] 08/08/2024 13:14:58 4 Allergy Injection, Recipe completed Nayeli Ratti [place] 08/08/2024 13:14:58 4 [place] Allergy Injection, Maintenance, Subsequent Vial, 1 Vial completed Nayeli Ratti [place] 08/08/2024 13:26:51 4 Allergy Injection, Build-up, Initial/New Vial completed Dayana Zipse [place] .[facility] 07/29/2024 17:07:44 4 Allergy Injection, Recipe completed Dayana Zipse [place] - .[facility] 07/29/2024 17:08:27 4 [place] Allergy Injection, Maintenance, Subsequent Vial, 1 Vial completed Dayana Zipse [place] - [facility] 07/29/2024 17:11:29 4 Allergy Injection, Build-up, Initial/New Vial completed Nayeli Ratti [place] 07/25/2024 13:00:11 4 Allergy Injection, Recipe completed Nayeli Ratti [place] 07/25/2024 12:54:22 4 Allergy Injection, Build-up, Initial/New Vial completed Nayeli Ratti [place] 07/17/2024 15:03:24 4 Allergy Injection, Recipe completed Nayeli Ratti [place] 07/17/2024 15:00:09 4 Allergy Injection, Build-up, Initial/New Vial completed Pieter Noel [place] - .[facility] 07/10/2024 14:01:31 4 Allergy Injection, Recipe completed Pieter Noel [place] 07/10/2024 13:58:56 4 Allergy Injection, Build-up, Initial/New Vial completed Nayeli Ratti [place] - [place] 07/03/2024 15:09:04 4 Allergy Injection, Recipe completed Nayeli Ratti [place] 07/03/2024 15:04:59 4 Allergy Injection, Build-up, Initial/New Vial completed Nayeli Ratti [place] 06/02/2024 13:13:08 4 Allergy Injection, Recipe completed Nayeli Ratti [place] 06/02/2024 13:06:17 4 Allergy Injection, Build-up, Initial/New Vial completed Nayeli Ratti [place] 05/30/2024 13:23:20 4 Allergy Injection, Recipe completed Nayeli Ratti [place] - [place] 05/30/2024 13:19:58 4 Allergy Injection, Build-up, Initial/New Vial completed Nayeli Ratti [place] - [place] 05/22/2024 09:53:48 4 Allergy Injection, Recipe completed Nayeli Ratti [place] - [place] 05/22/2024 09:50:32 4 Allergy Injection, Build-up, Initial/New Vial completed Nayeli Ratti [place] 05/08/2024 10:10:23 4 Allergy Injection, Recipe completed Nayeli Ratti [place] 05/08/2024 10:07:32 4 Allergy Injection, Build-up, Initial/New Vial completed Nayeli Ratti [place] 05/01/2024 10:55:39 4 Allergy Injection, Recipe completed Nayeli Ratti [place] 05/01/2024 10:53:00 4 Allergy Injection, Build-up, Initial/New Vial completed Nayeli Ratti [place] - [place] 04/15/2024 13:32:21 4 Allergy Injection, Recipe completed Nayeli Ratti [place] 04/15/2024 13:29:48 4 Allergy Injection, Build-up, Initial/New Vial completed Nayeli Ratti [place] 04/10/2024 09:41:47 4 Allergy Injection, Recipe completed Nayeli Ratti [place] 04/10/2024 09:39:04 4 Allergy Injection, Build-up, Initial/New Vial completed Glenn Bhalodia [place] - [place] 04/02/2024 08:51:41 4 Allergy Injection, Recipe completed Glenn Bhalodia [place] - [place] 04/02/2024 08:49:01 4 Allergy Injection, Build-up, Initial/New Vial completed Nayeli Ratti [place] - [place] 03/24/2024 15:27:16 4 Allergy Injection, Recipe completed Nayeli Ratti [place] 03/24/2024 15:19:09 4 Allergy Injection, Build-up, Initial/New Vial completed Nayeli Ratti [place] 03/13/2024 09:45:22 4 Allergy Injection, Recipe completed Nayeli Ratti [place] 03/13/2024 09:41:07 4 Allergy Injection, Build-up, Initial/New Vial completed Glenn Bhalodia [place] - [place] 03/05/2024 08:47:21 4 Allergy Injection, Recipe completed Glenn Bhalodia [place] - [place] 03/05/2024 08:41:42 4 Allergy Injection, Build-up, Initial/New Vial completed Aidee Abel [place] - [facility] 02/28/2024 09:37:48 4 Allergy Injection, Recipe completed Nayeli Ratti [place] 02/28/2024 09:34:24 4 Allergy Injection, Build-up, Initial/New Vial completed Glenn Bhalodia [place] - [facility] 02/20/2024 08:12:30 4 Allergy Injection, Recipe completed Glenn Bhalodia [place] - [place] 02/20/2024 08:05:30 4 Allergy Injection, Build-up, Initial/New Vial completed Glenn Bhalodia [place] - [place] 02/06/2024 08:38:48 4 Allergy Injection, Recipe completed Glenn Bhalodia [place] - [facility] 02/06/2024 08:35:01 4 Allergy Injection, Build-up, Initial/New Vial completed Tyler Rollins [place] - .[facility] 01/31/2024 12:26:22 4 Allergy Injection, Recipe completed Aidee Hernandez Ratti [place] - .[facility] 01/31/2024 09:38:12 4 Allergy Injection, Build-up, Initial/New Vial completed Glenn Bhalodia [place] 01/24/2024 09:48:10 4 Allergy Injection, Recipe completed Glenn Bhalodia [place] - [facility] 01/24/2024 09:42:59 4 Allergy Injection, Build-up, Initial/New Vial completed Maldonado Escalante [place] - .[facility] 01/17/2024 09:40:31 4 Allergy Injection, Recipe completed Maldonado Kashifeter [place] - .[facility] 01/17/2024 09:36:01 4 Allergy Injection, Build-up, Initial/New Vial completed Caryl Villatoro [place] 01/10/2024 14:08:44 4 Allergy Injection, Recipe completed Caryl Villatoro [place] - [place] 01/10/2024 14:06:57 4 Allergy Injection, Build-up, Initial/New Vial completed Glenn Bhalodia [place] - [place] 12/27/2023 09:55:42 4 Allergy Injection, Recipe completed Glenn Bhalodia [place] - [facility] 12/27/2023 09:50:02 4 Allergy Injection, Build-up, Initial/New Vial completed Glenn Bhalodia [place] - [facility] 12/18/2023 13:36:05 4 Allergy Injection, Recipe completed Glenn Bhalodia [place] - [facility] 12/18/2023 13:32:01 4 Allergy Injection, Build-up, Initial/New Vial completed Glenn Bhalodia [place] - [facility] 12/12/2023 08:45:41 4 Allergy Injection, Recipe completed Glenn Bhalodia [place] - [place] 12/12/2023 08:41:45 4 Allergy Injection, Build-up, Initial/New Vial completed Caryl Villatoro [place] - [place] 12/06/2023 09:46:16 4 Allergy Injection, Recipe completed Caryl Villatoro [place] - [facility] 12/06/2023 09:45:47 4 Allergy Injection, Build-up, Initial/New Vial completed Glenn Bhalodia [place] - [facility] 11/29/2023 09:37:17 4 Allergy Injection, Recipe completed Glenn Bhalodia [place] - [facility] 11/29/2023 09:32:56 4 Allergy Injection, Build-up, Initial/New Vial completed Caryl Villatoro [place] 11/22/2023 10:28:27 4 Allergy Injection, Recipe completed Caryl Duranllana [place] - .[facility] 11/22/2023 10:26:36 4 Allergy Injection, Build-up, Initial/New Vial completed Caryl Duranllana [place] - .[facility] 11/15/2023 15:37:47 4 Allergy Injection, Recipe completed Caryl Duranllana [place] - .[facility] 11/15/2023 15:31:59 3 Allergy Injection, Build-up, Initial/New Vial completed Dayana MORAN - .[facility] 10/30/2023 18:27:24 3 Allergy Injection, Recipe completed Dayana Valle [place] - .[facility] 10/30/2023 18:26:31 1 Other completed Malvin MORAN - .[facility] 10/18/2023 10:17:32 Imaging Results None recorded. [...] Smoking Status Never Smoker DEAN Olvera - .[facility] 07/30/2022 13:35:51 Do You Or Have You Ever Used E-cigarettes Or Vape? 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 Yes [email or web address] Information not available 10/18/2023 Cesar In Bedroom Bare Floor [email or web address] Information not available 10/18/2023 Pillows In Bedroom Synthetic [email or web address] Information not available 10/18/2023 Mattress Foam [email or web address] Information no t available 10/18/2023 Cesar In Rest Of House Hard Wood [email or web address] Information not available 10/18/2023 Do You Or Have You Ever Used Any Other Forms Of Tobacco Or Nicotine? No Information not available 10/18/2023 Sex: Unknown Functional Status None recorded. Mental Status None recorded. Family History Nothing Reported. Medical History No medical history recorded. Past Encounters Encounter ID Performer Location Encounter Start Date Encounter Closed Date Diagnosis/Indication Diagnosis SNOMED-CT Code Diagnosis ICD10 Code [id number] Luigi Camara_[address] [facility] [address] [place] [address],[address] [address] 07/17/2024 14:24:49 07/21/2024 12:20:09 Allergic rhinitis caused by pollen 34572225 J30.1 [id number] Luigi Camara_5 [address] [facility] [address] [place] [address],[address] [place] [address] 07/25/2024 12:51:06 07/28/2024 10:45:55 Allergic rhinitis caused by pollen 23656007 J30.1 [id number] Eliot Ibarra MD [facility]_[address] [facility] [address] [place] [address],[address] [place] [id number] 07/29/2024 17:06:43 07/31/2024 08:55:49 [id number] Fifi Rocha MD [facility]_[address] [address] [place] [address],[address] [place] [id number] 08/08/2024 13:09:14 08/11/2024 11:43:54 Allergic rhinitis caused by pollen 12430907 J30.1 Allergic r hinitis caused by animal dander 322714971 J30.81 [id number] Luigi Mccauley MD [facility]_[address] [address] [place] [address],[address] [place] [id number] 08/15/2024 13:08:06 08/18/2024 13:35:45 Allergic rhinitis caused by pollen 84711410 J30.1 Allergic r hinitis caused by animal dander 124513228 J30.81 Health Concerns Section Related Observation LastModified by Organization Detai ls LastModified Time None Recorded Concern Status LastModified by Organization Details LastModified Time None Recorded Payers Encounter Date Sequence Insurance Name Policy Number Policy Gaspar Covered Member ID Gaspar Member ID Guarantor Name 08/15/2024 1 [employer] - CHOICE (POS II) [id number] Augustus Heaton [id number] Augustus Heaton
--- OUTSIDE RECORDS SUMMARY | 2024-11-12 16:13 | XMS_ITS | Continuity of Care Document ---
Author Organization [place] - .[facility], [place] Address [address] [place] [address] Care Team Providers Care Mobile Sales Expert Name Role Phone FAZALMEDARDODALIAMarita TATYANA Primary Care [...] 2024 09:40A M Allergy Shots @ [address] [place] Not available Not available Not available Allerg y Shot 2024 03:00P M Allergy Shots @ [address] [place] Not available Not available Not available Allerg y Shot 2024 09:50A M Allergy Shots @ [address] [place] Not available Not available Not available Lab [...] and Address Organization Details Recorded Time Asthma [id number] Active 022 DEAN Olvera - .[facility] 07/30/2022 13:35:40 Problem Notes None recorded. Procedures Surgical History Date Name Laterality Status Provider Name and Address Organization Details Recorded Time 4 Allergy Injection, Recipe completed Nayeli Ratti [place] - .[facility] 11/11/2024 13:16:43 4 [place] Allergy Injection, Maintenance, Subsequent Vial, 1 Vial completed Nayeli Ratti [place] 11/11/2024 13:19:30 4 Allergy Injection, Recipe completed Nayeli Ratti [place] - [place] 10/31/2024 13:21:02 4 [place] Allergy Injection, Maintenance, Subsequent Vial, 1 Vial completed Nayeli Ratti [place] 10/31/2024 13:24:32 4 Allergy Injection, Recipe completed Caryl Villatoro [place] - [place] 10/23/2024 14:58:47 4 [place] Allergy Injection, Maintenance, Subsequent Vial, 1 Vial completed Caryl Villatoro [place] 10/23/2024 14:59:20 4 Allergy Injection, Recipe completed Glenn Bhalodia [place] - .[facility] 10/15/2024 09:14:08 4 [place] Allergy Injection, Maintenance, Subsequent Vial, 1 Vial completed Glenn Bhalodia [place] - .[facility] 10/15/2024 09:16:58 4 Allergy Injection, Recipe completed Caryl Villatoro [place] 10/02/2024 13:45:06 4 [place] Allergy Injection, Maintenance, Subsequent Vial, 1 Vial completed Caryl Villatoro [place] 10/02/2024 13:58:38 4 Allergy Injection, Build-up, Initial/New Vial completed Nayeli Ratti [place] 09/22/2024 13:22:19 4 Allergy Injection, Recipe completed Nayeli Ratti [place] 09/22/2024 13:22:19 4 [place] Allergy Injection, Maintenance, Subsequent Vial, 1 Vial completed Nayeli Ratti [place] 09/22/2024 13:25:00 4 Allergy Injection, Build-up, Initial/New Vial completed [place]ayeli Ratti [place] [facility] 09/08/2024 13:14:11 4 Allergy Injection, Recipe completed Nayeli Ratti [place] 09/08/2024 13:14:11 4 [place] Allergy Injection, Maintenance, Subsequent Vial, 1 Vial completed Nayeli Ratti [place] 09/08/2024 13:17:01 4 Allergy Injection, Build-up, Initial/New Vial completed Glenn Bhalodia [place] - [place] 09/03/2024 15:01:22 4 Allergy Injection, Recipe completed Glenn Bhalodia [place] 09/03/2024 15:01:22 4 [place] Allergy Injection, Maintenance, Subsequent Vial, 1 Vial completed Glenn Bhalodia [place] 09/03/2024 15:01:45 4 Allergy Injection, Build-up, Initial/New Vial completed Glenn Bhalodia [place] 08/27/2024 13:47:20 4 Allergy Injection, Recipe completed Glenn Bhalodia [place] - [facility] 08/27/2024 13:47:20 4 [place] Allergy Injection, Maintenance, Subsequent Vial, 1 Vial completed Glenn Bhalodia [place] - [place] 08/27/2024 13:51:25 4 Allergy Injection, Build-up, Initial/New Vial completed Caryljaun Villatoro [place] 08/22/2024 13:10:46 4 Allergy Injection, Recipe completed Caryl Villatoro [place] 08/22/2024 13:10:46 4 [place] Allergy Injection, Maintenance, Subsequent Vial, 1 Vial completed Caryl Villatoro [place] 08/22/2024 13:15:34 4 Allergy Injection, Build-up, Initial/New Vial completed Nayeli Ratti [place] 08/15/2024 13:14:33 4 Allergy Injection, Recipe completed Nayeli Ratti [place] 08/15/2024 13:14:33 4 [place] Allergy Injection, Maintenance, Subsequent Vial, 1 Vial completed Nayeli Ratti [place] 08/15/2024 13:18:25 4 Allergy Injection, Build-up, Initial/New Vial completed Nayeli Ratti [place] 08/08/2024 13:14:58 4 Allergy Injection, Recipe completed Nayeli Ratti [place] 08/08/2024 13:14:58 4 [place] Allergy Injection, Maintenance, Subsequent Vial, 1 Vial completed Nayeli Ratti [place] 08/08/2024 13:26:51 4 Allergy Injection, Build-up, Initial/New Vial completed Dayana Zipse [place] 07/29/2024 17:07:44 4 Allergy Injection, Recipe completed Dayana Zipse [place] 07/29/2024 17:08:27 4 [place] Allergy Injection, Maintenance, Subsequent Vial, 1 Vial completed Dayana Zipse [place] 07/29/2024 17:11:29 4 Allergy Injection, Build-up, Initial/New Vial completed Nayeli Ratti [place] 07/25/2024 13:00:11 4 Allergy Injection, Recipe completed Nayeli Ratti [place] 07/25/2024 12:54:22 4 Allergy Injection, Build-up, Initial/New Vial completed Nayeli Ratti [place] 07/17/2024 15:03:24 4 Allergy Injection, Recipe completed Nayeli Ratti [place] 07/17/2024 15:00:09 4 Allergy Injection, Build-up, Initial/New Vial completed Pieter Noel [place] 07/10/2024 14:01:31 4 Allergy Injection, Recipe completed Pieter Noel [place] 07/10/2024 13:58:56 4 Allergy Injection, Build-up, Initial/New Vial completed Nayeli Ratti [place] 07/03/2024 15:09:04 4 Allergy Injection, Recipe completed Nayeli Ratti [place] 07/03/2024 15:04:59 4 Allergy Injection, Build-up, Initial/New Vial completed Nayeli Ratti [place] 06/02/2024 13:13:08 4 Allergy Injection, Recipe completed Nayeli Ratti [place] - [place] 06/02/2024 13:06:17 4 Allergy Injection, Build-up, Initial/New Vial completed Nayeli Ratti [place] 05/30/2024 13:23:20 4 Allergy Injection, Recipe completed Nayeli Ratti [place] - [place] 05/30/2024 13:19:58 4 Allergy Injection, Build-up, Initial/New Vial completed Nayeli Ratti [place] 05/22/2024 09:53:48 4 Allergy Injection, Recipe completed Nayeli Ratti [place] 05/22/2024 09:50:32 4 Allergy Injection, Build-up, Initial/New Vial completed Nayeli Ratti [place] 05/08/2024 10:10:23 4 Allergy Injection, Recipe completed Nayeli Ratti [place] 05/08/2024 10:07:32 4 Allergy Injection, Build-up, Initial/New Vial completed Nayeli Ratti [place] 05/01/2024 10:55:39 4 Allergy Injection, Recipe completed Nayeli Ratti [place] 05/01/2024 10:53:00 4 Allergy Injection, Build-up, Initial/New Vial completed Nayeli Ratti [place] 04/15/2024 13:32:21 4 Allergy Injection, Recipe completed Nayeli Ratti [place] 04/15/2024 13:29:48 4 Allergy Injection, Build-up, Initial/New Vial completed Nayeli Ratti [place] 04/10/2024 09:41:47 4 Allergy Injection, Recipe completed Nayeli Ratti [place] 04/10/2024 09:39:04 4 Allergy Injection, Build-up, Initial/New Vial completed Glenn Bhalodia [place] 04/02/2024 08:51:41 4 Allergy Injection, Recipe completed Glenn Bhalodia [place] - [place] 04/02/2024 08:49:01 4 Allergy Injection, Build-up, Initial/New Vial completed Nayeli Ratti [place] 03/24/2024 15:27:16 4 Allergy Injection, Recipe completed Nayeli Ratti [place] 03/24/2024 15:19:09 4 Allergy Injection, Build-up, Initial/New Vial completed Nayeli Ratti [place] 03/13/2024 09:45:22 4 Allergy Injection, Recipe completed Nayeli Ratti [place] 03/13/2024 09:41:07 4 Allergy Injection, Build-up, Initial/New Vial completed Glenn Bhalodia [place] 03/05/2024 08:47:21 4 Allergy Injection, Recipe completed Glenn Bhalodia [place] 03/05/2024 08:41:42 4 Allergy Injection, Build-up, Initial/New Vial completed Aidee Abel [place] 02/28/2024 09:37:48 4 Allergy Injection, Recipe completed Nayeli Ratti [place] 02/28/2024 09:34:24 4 Allergy Injection, Build-up, Initial/New Vial completed Glenn Bhalodia [place] - [place] 02/20/2024 08:12:30 4 Allergy Injection, Recipe completed Glenn Bhalodia [place] 02/20/2024 08:05:30 4 Allergy Injection, Build-up, Initial/New Vial completed Glenn Bhalodia [place] 02/06/2024 08:38:48 4 Allergy Injection, Recipe completed Glenn Bhalodia [place] 02/06/2024 08:35:01 4 Allergy Injection, Build-up, Initial/New Vial completed Tyler Rollins [place] - [place] 01/31/2024 12:26:22 4 Allergy Injection, Recipe completed Aidee Hernandez Ratti [place] 01/31/2024 09:38:12 4 Allergy Injection, Build-up, Initial/New Vial completed Glenn Bhalodia [place] - [place] 01/24/2024 09:48:10 4 Allergy Injection, Recipe completed Glenn Bhalodia [place] 01/24/2024 09:42:59 4 Allergy Injection, Build-up, Initial/New Vial completed Maldonado Escalante [place] 01/17/2024 09:40:31 4 Allergy Injection, Recipe completed Maldonado Kashifeter [place] - [facility] 01/17/2024 09:36:01 4 Allergy Injection, Build-up, Initial/New Vial completed Caryl Villatoro [place] 01/10/2024 14:08:44 4 Allergy Injection, Recipe completed Caryl Villatoro [place] 01/10/2024 14:06:57 4 Allergy Injection, Build-up, Initial/New Vial completed Glenn Bhalodia [place] - [place] 12/27/2023 09:55:42 4 Allergy Injection, Recipe completed Glenn Bhalodia [place] - [place] 12/27/2023 09:50:02 4 Allergy Injection, Build-up, Initial/New Vial completed Glenn Bhalodia [place] - [place] 12/18/2023 13:36:05 4 Allergy Injection, Recipe completed Glenn Bhalodia [place] - [facility] 12/18/2023 13:32:01 4 Allergy Injection, Build-up, Initial/New Vial completed Glenn Bhalodia [place] - [facility] 12/12/2023 08:45:41 4 Allergy Injection, Recipe completed Glenn Bhalodia [place] - [place] 12/12/2023 08:41:45 4 Allergy Injection, Build-up, Initial/New Vial completed Caryl Villatoro [place] 12/06/2023 09:46:16 4 Allergy Injection, Recipe completed Caryl Villatoro [place] - [place] 12/06/2023 09:45:47 4 Allergy Injection, Build-up, Initial/New Vial completed Glenn Bhalodia [place] - [place] 11/29/2023 09:37:17 4 Allergy Injection, Recipe completed Glenn Bhalodia [place] - [place] 11/29/2023 09:32:56 4 Allergy Injection, Build-up, Initial/New Vial completed Caryl Villatoro [place] 11/22/2023 10:28:27 4 Allergy Injection, Recipe completed Caryl Duranllana [place] - [facility] 11/22/2023 10:26:36 4 Allergy Injection, Build-up, Initial/New Vial completed Caryl Duranllana [place] - [place] 11/15/2023 15:37:47 4 Allergy Injection, Recipe completed Caryl Duranllana [place] - [place] 11/15/2023 15:31:59 3 Allergy Injection, Build-up, Initial/New Vial completed Dayana MORAN - .[facility] 10/30/2023 18:27:24 3 Allergy Injection, Recipe completed Dayana Valle [place] - [facility] 10/30/2023 18:26:31 1 Other completed Malvin MORAN - .[facility] 10/18/2023 10:17:32 Imaging Results None recorded. [...] Smoking Status Never Smoker DEAN Olvera - .[facility] 07/30/2022 13:35:51 Do You Or Have You Ever Used E-cigarettes Or Vape? 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 Yes [email or web address] Information not available 10/18/2023 Cesar In Bedroom Bare Floor [email or web address] Information not available 10/18/2023 Pillows In Bedroom Synthetic [email or web address] Information not available 10/18/2023 Mattress Foam [email or web address] Information no t available 10/18/2023 Cesar In Rest Of House Hard Wood [email or web address] Information not available 10/18/2023 Do You Or Have You Ever Used Any Other Forms Of Tobacco Or Nicotine? No Information not available 10/18/2023 Sex: Unknown Functional Status None recorded. Mental Status None recorded. Family History Nothing Reported. Medical History No medical history recorded. Past Encounters Encounter ID Performer Location Encounter Start Date Encounter Closed Date Diagnosis/Indication Diagnosis SNOMED-CT Code Diagnosis ICD10 Code [id number] Luigi Camara_5 [address] [facility] [address] [place] [address],[address] [place] [address] 07/10/2024 13:57:08 07/11/2024 09:16:17 Allergic rhinitis caused by pollen 77121868 J30.1 [id number] Luigi Camara_5 [address] [facility] [address] [place] [address],[address] [place] [address] 07/17/2024 14:24:49 07/21/2024 12:20:09 Allergic rhinitis caused by pollen 37839700 J30.1 [id number] Luigi Mccauley MD [facility] [address] [facility] [address] [place] [address],[address] [place] [id number] 07/25/2024 12:51:06 07/28/2024 10:45:55 Allergic rhinitis caused by pollen 67094111 J30.1 [id number] [facility] [address] [place] [address],[address] [place] [id number] 07/29/2024 17:06:43 07/31/2024 08:55:49 [id number] Fifi Camara_5 [address] [place] [address],[address] [place] [id number] 08/08/2024 13:09:14 08/11/2024 11:43:54 Allergic rhinitis caused by pollen 71677383 J30.1 Allergic r hinitis caused by animal dander 631883526 J30.81 Health Concerns Section Related Observation LastModified by Organization Detai ls LastModified Time None Recorded Concern Status LastModified by Organization Details LastModified Time None Recorded Payers Encounter Date Sequence Insurance Name Policy Number Policy Gaspar Covered Member ID Gaspar Member ID Guarantor Name 08/08/2024 1 [employer] - CHOICE (POS II) [id number] Augustus Heaton [id number] Augustus Heaton
--- OUTSIDE RECORDS SUMMARY | 2024-11-12 16:13 | XMS_ITS | Clinical Summary ---
Author Organization [facility] Address [address] [place] [id number] Care Team Providers Care Laborer Cutting Tool Name Role Phone Be Reno DO Primary Care Provider [phone] Allergies Active Allergy Reactions Criticality Noted Date Comments Cat Dander 01/04/2023 Dog Dander 01/04/2023 Pollen Extracts 12/14/2022 Medications Medication Sig Dispensed Refills Start Date End Date Status fexofenadine HCl (JAKE ORAL) Take by mouth Active albuterol sulfate (PROAIR RESPICLICK) 90 mcg/actuation powder inhalerIndications:Mod erate persistent asthma, unspecified whether complicated (HCC) Inhale 1 puff every 6 hours as needed 1 each 3 05/20/2024 Active meloxicam (MOBIC) 15 mg tabletIndications:Acut e right-sided low back pain without sciatica Take 1 tablet (15 mg total) by mouth daily 30 tablet 07/31/2024 Active Active Problems Problem Noted Date Diagnosed Date Asthma 07/30/2022 Immunizations Name Administration Dates Next Due Influenza (6 Months Up) (PF) Quadrivalent IM Family History Medical History Relation Comments Diabetes Father prediabetes Father No Known Problems Maternal Grandfather Diabetes Maternal Grandmother No Known Problems Mother No Known Problems Paternal Grandfather Asthma Sister No Known Problems Son Relation Status Comments Father Alive Maternal Grandfather Maternal Grandmother Mother Alive Paternal Grandfather Paternal Grandmother Alive Sister Alive Son Alive Social History Tobacco Use Types Packs/Day Years Used Date Smoking Tobacco: Never Smokeless Tobacco: Never Tobacco Cessation:Counseling Given: Not Answered Alcohol Use Standard Drinks/Week Comments Not Currently 0 (1 standard drink = 0.6 oz pure alcohol) Social drinker less than 1-2 drinks monthly [facility] Utilities Answer Date Recorded In the past 12 months has th e electric, gas, oil, or water company threatened to shut off services in your home? No 07/31/2024 Humiliation, Afraid, Rape, and Kick questionnair e Answer Date Recorded Within the last year, have y ou been afraid of your partner or ex-partner? No 01/04/2023 Emotionally Abused Not on file 01/04/2023 Physically Abused Not on file 01/04/2023 Sexually Abused Not on file 01/04/2023 Social Connection and Isolat ion Panel [NHANES] Answer Date Recorded In a typical week, how many times do you talk on the phone with family, friends, or neighbors? Three times a week 07/31/2024 How often do you get togethe r with friends or relatives? More than three times a week 07/31/2024 How often do you attend chur ch or sikhism services? Never 07/31/2024 Do you belong to any clubs o r organizations such as restoration groups, unions, fraternal or athletic groups, or school groups? Patient declined 07/31/2024 How often do you attend meet ings of the clubs or organizations you belong to? Patient declined 07/31/2024 Are you , , di vorced, , never , or living with a partner? 07/31/2024 AUDIT-C Answer Date Recorded Q1: How often do you have a drink containing alc ohol? Monthly or less 07/28/2024 Q2: How many drinks containi ng alcohol do you have on a typical day when you are drinking? 3 or 4 07/28/2024 Q3: How often do you have si x or more drinks on one occasion? Less than monthly 07/28/2024 Overall Financial Resource Strain (CARDIA) Answe r Date Recorded How hard is it for you to pa y for the very basics like food, housing, medical care, and heating? Not hard at all 07/31/2024 PHQ-2 Answer Date Recorded PHQ-2 Total Score 0 07/28/2024 [facility] [place] [facility] Occupat ional Health - Occupational Stress Questionnaire Answer Date Recorded Do you feel stress - tense, restless, nervous, or anxious, or unable to sleep at night because your mind is troubled all the time - these days? Not at all 07/31/2024 Exercise Vital Sign Answer Date Recorde d On average, how many days pe r week do you engage in moderate to strenuous exercise (like a brisk walk)? 3 days 07/31/2024 On average, how many minutes do you engage in exercise at this level? 50 min 07/31/2024 Hunger Vital Sign Answer Date Recorded Within the past 12 months, y ou worried that your food would run out before you got the money to buy more. Never true 07/31/20 24 Within the past 12 months, t he food you bought just didn't last and you didn't have money to get more. Never true 07/31/2024 PRAPARE - Transportation Answer Date Re corded In the past 12 months, has l ack of transportation kept you from medical appointments or from getting medications? No 07/13 In the past 12 months, has l ack of transportation kept you from meetings, work, or from getting things needed for daily living? No 07/31/2024 Housing Stability Vital Sign Answer Jose e Recorded In the last 12 months, was t here a time when you were not able to pay the mortgage or rent on time? No 07/31/2024 In the last 12 months, how many places have you lived? 1 07/31/2024 In the last 12 months, was t here a time when you did not have a steady place to sleep or slept in a senior living (including now)? No 07/31/2024 Sex and Gender Information Value Date Recorded Sex Assigned at Male 02/01/2024 1:22 PM EDT Gender Identity Male 02/01/2024 1:22 PM EDT Sexual Orientation Straight 04/22/2024 10 :53 AM EDT Last Filed Vital Signs Vital Sign Reading Time Taken Comments Blood Pressure 104/70 07/31/2024 9:40 AM EDT Pulse 65 07/31/2024 9:40 AM EDT Temperature 36.3 ??C (97.3 ??F) 07/31/2024 9:40 AM ED T Respiratory Rate - - Oxygen Saturation 99% 07/31/2024 9:40 AM EDT Inhaled Oxygen Concentration - - Weight 96.2 kg (212 lb) 07/31/2024 9:40 AM EDT Height 172.7 cm (5' 8 ) 07/31/2024 9:40 AM EDT Body Mass Index 32.23 07/31/2024 9:40 AM EDT Plan of Treatment Health Maintenance Due Date Last Done Comments [facility] ANNUAL DEPRESSION SCREENING 2004 Hepatitis B Screening 2005 [facility] BLOOD PRESSURE 140/ 90 OR UNDER 2010 [facility] BMI DOCUMENTED 2010 Hepatitis B Vaccines (1 of 3 - 19+ 3-dose series) 2011 Pneumococcal Vaccine: Ped & Adult <65 (1 of 2 - PCV) 2011 INFLUENZA VACCINE 06/12/2024 11/03/2021 COVID VACCINE (2023- season) 2024 11/03/2021, 02/25/2021, 02/04/2021 Preventative/Well Visit 07/31/2025 07/31/20 24, 07/31/2024, 12/14/2022, Additional history exists [facility] ACCESS TO PREVENTIVE/AMBULATORY VISIT 07/31/2026 07/31/2024, 07/31/2024, 12/14/2022 HEPATITIS C SCREENING Completed 04/24/2024 Procedures Procedure Name Priority Date/Time Associated Diagnosis Comments HEPATITIS C ANTIBODY Routine 04/24/2024 10:16 AM EDT Need for hepatitis C screening test from Last 3 Months or Most Recently Relevant to Health Maintenance Results * Hepatitis C Virus (HCV) Antibody With Reflex to Quantitative Real-time PCR (04/24/2024 10:16 AM EDT) HEPATITIS C ANTIBODY NON-REACTI VE NON-REACT PONCHO QUEST Comment: HCV antibody was non-reactive. There is no laboratory evidence of HCV infection. In most cases, no further action is required. However, if recent HCV exposure is suspected, a test for HCV RNA (test code 61618) is suggested. For additional information please refer to http://education.[employer]/faq/CFB12l9 (This link is being provided for informational/ educational purposes only.) Blood 04/24/2024 10:1 6 AM EDT 04/25/2024 7:10 AM EDT Narrative JOCELINE LS - 04/25/2024 12:30 PM EDT FASTING: UNKNOWN Resulting Agency Comment Performing Organization Information: ?Site ID: [id number] ?Name: [facility] ?Address: [address] [place] [id number] ?Director: Abdifatah Fonseca Be Reno DO LAB BLOOD ORDERAB LES QUEST LS from Last 3 Months or Most Recently Relevant to Health Maintenance Care Teams Laborer Cutting Tool Relationship Specialty Start Date End Date Be Reno DO [address] [place] [address] PCP - General Family Medicine 12/14/22
--- OUTSIDE RECORDS SUMMARY | 2024-11-12 16:13 | XMS_ITS | Continuity of Care Document ---
Author Organization [place] - .[facility], [place]_[address]_ALLERGY Address [address] [place] [address] Care Team Providers Care Automotive Quality Manager Name Role Phone FAZALMEDARDODALIAMarita TATYANA Primary [...] 2024 09:40A M Allergy Shots @ [address] [place] Not available Not available Not available Allerg y Shot 2024 03:00P M Allergy Shots @ [address] [place] Not available Not available Not available Allerg y Shot 2024 09:50A M Allergy Shots @ [address] [facility] [place] Not available Not available Not available Lab [...] and Address Organization Details Recorded Time Asthma [id number] Active 022 DEAN Olvera - .[facility] 07/30/2022 13:35:40 Problem Notes None recorded. Procedures Surgical History Date Name Laterality Status Provider Name and Address Organization Details Recorded Time 4 Allergy Injection, Recipe completed Nayeli Ratti [place] - .[facility] 11/11/2024 13:16:43 4 [place] Allergy Injection, Maintenance, Subsequent Vial, 1 Vial completed Nayeli Ratti [place] 11/11/2024 13:19:30 4 Allergy Injection, Recipe completed Nayeli Ratti [place] 10/31/2024 13:21:02 4 [place] Allergy Injection, Maintenance, Subsequent Vial, 1 Vial completed [place]ayeli Ratti [place] 10/31/2024 13:24:32 4 Allergy Injection, Recipe completed Caryl Villatoro [place] 10/23/2024 14:58:47 4 [place] Allergy Injection, Maintenance, Subsequent Vial, 1 Vial completed Caryl Villatoro [place] 10/23/2024 14:59:20 4 Allergy Injection, Recipe completed Glenn Bhalodia [place] - .[facility] 10/15/2024 09:14:08 4 [place] Allergy Injection, Maintenance, Subsequent Vial, 1 Vial completed Glenn Bhalodia [place] - .[facility] 10/15/2024 09:16:58 4 Allergy Injection, Recipe completed Caryl Villatoro [place] 10/02/2024 13:45:06 4 [place] Allergy Injection, Maintenance, Subsequent Vial, 1 Vial completed Caryl Villatoro [place] 10/02/2024 13:58:38 4 Allergy Injection, Build-up, Initial/New Vial completed [place]ayeli Ratti [place] 09/22/2024 13:22:19 4 Allergy Injection, Recipe completed Nayeli Ratti [place] 09/22/2024 13:22:19 4 [place] Allergy Injection, Maintenance, Subsequent Vial, 1 Vial completed Nayeli Ratti [place] 09/22/2024 13:25:00 4 Allergy Injection, Build-up, Initial/New Vial [place]ayeli Ratti [place] 09/08/2024 13:14:11 4 Allergy Injection, Recipe completed Nayeli Ratti [place] 09/08/2024 13:14:11 4 [place] Allergy Injection, Maintenance, Subsequent Vial, 1 Vial completed Nayeli Ratti [place] 09/08/2024 13:17:01 4 Allergy Injection, Build-up, Initial/New Vial completed Glenn Bhalodia [place] - .[facility] 09/03/2024 15:01:22 4 Allergy Injection, Recipe completed Glenn Bhalodia [place] 09/03/2024 15:01:22 4 [place] Allergy Injection, Maintenance, Subsequent Vial, 1 Vial completed Glenn Bhalodia [place] 09/03/2024 15:01:45 4 Allergy Injection, Build-up, Initial/New Vial completed Glenn Bhalodia [place] 08/27/2024 13:47:20 4 Allergy Injection, Recipe completed Glenn Bhalodia [place] 08/27/2024 13:47:20 4 [place] Allergy Injection, Maintenance, Subsequent Vial, 1 Vial completed Glenn Bhalodia [place] 08/27/2024 13:51:25 4 Allergy Injection, Build-up, Initial/New Vial completed Caryljaun Villatoro [place] 08/22/2024 13:10:46 4 Allergy Injection, Recipe completed Caryl Villatoro [place] 08/22/2024 13:10:46 4 [place] Allergy Injection, Maintenance, Subsequent Vial, 1 Vial completed Caryl Villatoro [place] 08/22/2024 13:15:34 4 Allergy Injection, Build-up, Initial/New Vial completed Nayeli Ratti [place] 08/15/2024 13:14:33 4 Allergy Injection, Recipe completed Nayeli Ratti [place] 08/15/2024 13:14:33 4 [place] Allergy Injection, Maintenance, Subsequent Vial, 1 Vial completed Nayeli Ratti [place] 08/15/2024 13:18:25 4 Allergy Injection, Build-up, Initial/New Vial completed Nayeli Ratti [place] 08/08/2024 13:14:58 4 Allergy Injection, Recipe completed Nayeli Ratti [place] 08/08/2024 13:14:58 4 [place] Allergy Injection, Maintenance, Subsequent Vial, 1 Vial completed Nayeli Ratti [place] 08/08/2024 13:26:51 4 Allergy Injection, Build-up, Initial/New Vial completed Dayana Zipse [place] 07/29/2024 17:07:44 4 Allergy Injection, Recipe completed Dayana Zipse [place] 07/29/2024 17:08:27 4 [place] Allergy Injection, Maintenance, Subsequent Vial, 1 Vial completed Dayana Zipse [place] 07/29/2024 17:11:29 4 Allergy Injection, Build-up, Initial/New Vial completed Nayeli Ratti [place] 07/25/2024 13:00:11 4 Allergy Injection, Recipe completed Nayeli Ratti [place] 07/25/2024 12:54:22 4 Allergy Injection, Build-up, Initial/New Vial completed Nayeli Ratti [place] 07/17/2024 15:03:24 4 Allergy Injection, Recipe completed Nayeli Ratti [place] 07/17/2024 15:00:09 4 Allergy Injection, Build-up, Initial/New Vial completed Pieter Noel [place] 07/10/2024 14:01:31 4 Allergy Injection, Recipe completed Pieter Noel [place] 07/10/2024 13:58:56 4 Allergy Injection, Build-up, Initial/New Vial completed Nayeli Ratti [place] 07/03/2024 15:09:04 4 Allergy Injection, Recipe completed Nayeli Ratti [place] 07/03/2024 15:04:59 4 Allergy Injection, Build-up, Initial/New Vial completed Nayeli Ratti [place] 06/02/2024 13:13:08 4 Allergy Injection, Recipe completed Nayeli Ratti [place] 06/02/2024 13:06:17 4 Allergy Injection, Build-up, Initial/New Vial completed Nayeli Ratti [place] 05/30/2024 13:23:20 4 Allergy Injection, Recipe completed Nayeli Ratti [place] 05/30/2024 13:19:58 4 Allergy Injection, Build-up, Initial/New Vial completed Nayeli Ratti [place] 05/22/2024 09:53:48 4 Allergy Injection, Recipe completed Nayeli Ratti [place] 05/22/2024 09:50:32 4 Allergy Injection, Build-up, Initial/New Vial completed Nayeli Ratti [place] 05/08/2024 10:10:23 4 Allergy Injection, Recipe completed Nayeli Ratti [place] 05/08/2024 10:07:32 4 Allergy Injection, Build-up, Initial/New Vial completed Nayeli Ratti [place] 05/01/2024 10:55:39 4 Allergy Injection, Recipe completed Nayeli Ratti [place] 05/01/2024 10:53:00 4 Allergy Injection, Build-up, Initial/New Vial completed Nayeli Ratti [place] 04/15/2024 13:32:21 4 Allergy Injection, Recipe completed Nayeli Ratti [place] 04/15/2024 13:29:48 4 Allergy Injection, Build-up, Initial/New Vial completed Nayeli Ratti [place] 04/10/2024 09:41:47 4 Allergy Injection, Recipe completed Nayeli Ratti [place] 04/10/2024 09:39:04 4 Allergy Injection, Build-up, Initial/New Vial completed Glenn Bhalodia [place] 04/02/2024 08:51:41 4 Allergy Injection, Recipe completed Glenn Bhalodia [place] - [place] 04/02/2024 08:49:01 4 Allergy Injection, Build-up, Initial/New Vial completed Nayeli Ratti [place] 03/24/2024 15:27:16 4 Allergy Injection, Recipe completed Nayeli Ratti [place] 03/24/2024 15:19:09 4 Allergy Injection, Build-up, Initial/New Vial completed Nayeli Ratti [place] 03/13/2024 09:45:22 4 Allergy Injection, Recipe completed Nayeli Ratti [place] 03/13/2024 09:41:07 4 Allergy Injection, Build-up, Initial/New Vial completed Glenn Bhalodia [place] 03/05/2024 08:47:21 4 Allergy Injection, Recipe completed Glenn Bhalodia [place] 03/05/2024 08:41:42 4 Allergy Injection, Build-up, Initial/New Vial completed Aidee Abel [place] 02/28/2024 09:37:48 4 Allergy Injection, Recipe completed Nayeli Ratti [place] 02/28/2024 09:34:24 4 Allergy Injection, Build-up, Initial/New Vial completed Glenn Bhalodia [place] 02/20/2024 08:12:30 4 Allergy Injection, Recipe completed Glenn Bhalodia [place] 02/20/2024 08:05:30 4 Allergy Injection, Build-up, Initial/New Vial completed Glenn Bhalodia [place] 02/06/2024 08:38:48 4 Allergy Injection, Recipe completed Glenn Bhalodia [place] 02/06/2024 08:35:01 4 Allergy Injection, Build-up, Initial/New Vial completed Tyler Rollins [place] 01/31/2024 12:26:22 4 Allergy Injection, Recipe completed Aidee Hernandez Ratti [place] 01/31/2024 09:38:12 4 Allergy Injection, Build-up, Initial/New Vial completed Glenn Bhalodia [place] 01/24/2024 09:48:10 4 Allergy Injection, Recipe completed Glenn Bhalodia [place] 01/24/2024 09:42:59 4 Allergy Injection, Build-up, Initial/New Vial completed Maldonado Escalante [place] 01/17/2024 09:40:31 4 Allergy Injection, Recipe completed Maldonado Kashifeter [place] 01/17/2024 09:36:01 4 Allergy Injection, Build-up, Initial/New Vial completed Caryl Villatoro [place] 01/10/2024 14:08:44 4 Allergy Injection, Recipe completed Caryl Villatoro [place] 01/10/2024 14:06:57 4 Allergy Injection, Build-up, Initial/New Vial completed Glenn Bhalodia [place] 12/27/2023 09:55:42 4 Allergy Injection, Recipe completed Glenn Bhalodia [place] 12/27/2023 09:50:02 4 Allergy Injection, Build-up, Initial/New Vial completed Glenn Bhalodia [place] 12/18/2023 13:36:05 4 Allergy Injection, Recipe completed Glenn Bhalodia [place] 12/18/2023 13:32:01 4 Allergy Injection, Build-up, Initial/New Vial completed Glenn Bhalodia [place] 12/12/2023 08:45:41 4 Allergy Injection, Recipe completed Glenn Bhalodia [place] - [place] 12/12/2023 08:41:45 4 Allergy Injection, Build-up, Initial/New Vial completed Caryl Villatoro [place] 12/06/2023 09:46:16 4 Allergy Injection, Recipe completed Caryl Villatoro [place] 12/06/2023 09:45:47 4 Allergy Injection, Build-up, Initial/New Vial completed Glenn Bhalodia [place] 11/29/2023 09:37:17 4 Allergy Injection, Recipe completed Glenn Bhalodia [place] 11/29/2023 09:32:56 4 Allergy Injection, Build-up, Initial/New Vial completed Caryl Villatoro [place] 11/22/2023 10:28:27 4 Allergy Injection, Recipe completed Caryl Duranllana [place] - [place] 11/22/2023 10:26:36 4 Allergy Injection, Build-up, Initial/New Vial completed Caryl Duranllana [place] - [place] 11/15/2023 15:37:47 4 Allergy Injection, Recipe completed Caryl Duranllana [place] - [place] 11/15/2023 15:31:59 3 Allergy Injection, Build-up, Initial/New Vial completed Dayana MORAN - .[facility] 10/30/2023 18:27:24 3 Allergy Injection, Recipe completed Dayana Valle [place] - [place] 10/30/2023 18:26:31 1 Other completed Malvin MORAN - .[facility] 10/18/2023 10:17:32 Imaging Results None recorded. [...] Smoking Status Never Smoker DEAN Olvera - .[facility] 07/30/2022 13:35:51 Do You Or Have You Ever Used E-cigarettes Or Vape? 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 Yes [email or web address] Information not available 10/18/2023 Cesar In Bedroom Bare Floor [email or web address] Information not available 10/18/2023 Pillows In Bedroom Synthetic [email or web address] Information not available 10/18/2023 Mattress Foam Information no t available 10/18/2023 Cesar In [...] Diagnosis/Indication Diagnosis SNOMED-CT Code Diagnosis ICD10 Code [id number] Eliot Camara_5 [address] [employer] [address] [address] 07/29/2024 17:06:43 07/31/2024 08:55:49 [id number] Fifi Camara_5 [address] [address] [place] [address] 08/08/2024 13:09:14 08/11/2024 11:43:54 Allergic rhinitis caused by pollen 38058997 J30.1 Allergic r hinitis caused by animal dander [id number] J30.81 [id number] Luigi Mccauley MD [facility]_5 [address] [employer] [address] [place] [address],[address] [place] [id number] 1 08/15/2024 13:08:06 08/18/2024 13:35:45 Allergic rhinitis caused by pollen 44363679 J30.1 Allergic r hinitis caused by animal dander 176906257 J30.81 [id number] Fifi Rocha MD [facility]_5 [address] [employer] [address] [place] [address],[address] [place] [id number] 1 08/22/2024 13:07:02 08/23/2024 07:54:07 Allergic rhinitis caused by pollen 89627455 J30.1 Allergic r hinitis caused by animal dander 435168150 J30.81 [id number] Fifi Camara_5 [address] [employer] [address] [place] [address],[address] [place] [id number] 1 08/27/2024 13:45:07 08/27/2024 14:54:56 Allergic rhinitis caused by pollen 50155778 J30.1 Allergic r hinitis caused by animal dander 847900154 J30.81 Health Concerns Section Related Observation LastModified by Organization Detai ls LastModified Time None Recorded Concern Status LastModified by Organization Details LastModified Time None Recorded Payers Encounter Date Sequence Insurance Name Policy Number Policy Gaspar Covered Member ID Gaspar Member ID Guarantor Name 08/27/2024 1 [employer] - CHOICE (POS II) [id number] Augustus Heaton [id number] Augustus Heaton
--- OUTSIDE RECORDS SUMMARY | 2024-11-12 16:14 | XMS_ITS | Encounter Summary ---
Author Organization [facility] Address [address] [place] [id number] Care Team Providers Care Franchise Sales Manager Name Role Phone Be Reno DO Primary Care Provider [phone] Reason for Visit * Reason Comments Follow-up Pt presents for a fo llow up and labs. Pt would also like to recheck rabies titers Encounter Details Date Type Department Care Team (Late st Contact Info) Description 04/24/2024 9:45 AM EDT Follow-Up [facility] [place] [address] [place], [place] [id number] Be Reno DO [address] [place] [address] Prediabetes (Primary Dx) [R73.03]; Elevated LDL cholesterol level [E78.00]; Moderate persistent asthma, unspecified whether complicated (HCC) [J45.40]; Family history of diabetes mellitus [Z83.3]; At increased risk for exposure to rabies virus [Z91.89]; Need for hepatitis C screening test [Z11.59] Social History Tobacco Use Types Packs/Day Years Used Date Smoking Tobacco: Never Smokeless Tobacco: Never Alcohol Use Standard Drinks/Week Comments Not Currently 0 (1 standard drink = 0.6 oz pure alcohol) Social drinker less than 1 drink per week average Humiliation, Afraid, Rape, and Kick questionnair e [...] the phone with family, friends, or neighbors? More than three times a week 04/22/2024 Frequency of Social Gatherin gs with Friends and Family Not on file 04/22/2024 Attends Voodoo Services Not on file 04/22 Active Member of Clubs or Organizations Not on f ile 04/22/2024 Attends Club or Organization Meetings Not on luis felipe e 04/22/2024 Marital Status Not on file 04/22/2024 Overall Financial Resource Strain (CARDIA) Answe r Date Recorded How hard is it for you to pa y for the very basics like food, housing, medical care, and heating? Not hard at all 04/22/2024 Hunger Vital Sign Answer Date Recorded Within the past 12 months, y ou worried that your food would run out before you got the money to buy more. Never true 04/22/20 24 Ran Out of Food in the Last Year Not on file 04/22/2024 PRAPARE - Transportation Answer Date Re corded In the past 12 months, has l ack of transportation kept you from medical appointments or from getting medications? No 04/22/2024 Lack of Transportation (Non-Medical) Not on file 04/22/2024 Housing Stability Vital Sign Answer Jose e Recorded In the last 12 months, was t here a time when you were not able to pay the mortgage or rent on time? No 04/22/2024 Number of Places Lived in the Last Year Not on f ile 04/22/2024 Unstable Housing in the Last Year Not on file 04/22/2024 Sex and Gender Information Value Date Recorded Sex Assigned at Male 02/01/2024 1:22 PM EDT Gender Identity Male 02/01/2024 1:22 PM EDT Sexual Orientation Straight 04/22/2024 10 :53 AM EDT documented as of this encounter Last Filed Vital Signs Vital Sign Reading Time Taken Comments Blood Pressure 100/60 04/24/2024 9:46 AM EDT Pulse 65 04/24/2024 9:46 AM EDT Temperature 36.4 ??C (97.5 ??F) 04/24/2024 9:46 AM ED T Respiratory Rate - - Oxygen Saturation 98% 04/24/2024 9:46 AM EDT Inhaled Oxygen Concentration - - Weight 97.3 kg (214 lb 9.6 oz) 04/24/2024 9:46 A M EDT Height 174 cm (5' 8.5 ) 04/24/2024 9:46 AM EDT Body Mass Index 32.16 04/24/2024 9:46 AM EDT documented in this encounter Progress Notes * Be Reno, DO - 04/24/2024 9:45 AM EDT Augustus Heaton is a 34 y.o. male who presents with Chief Complaint Patient presents with Follow-up Pt presents for a follow up and labs. Pt would also like to recheck rabies titers Iron presents to our office today for follow up of medical conditions as well as recheck of his rabies titers. Denies any acute complaints at this time. Reports that he is no longer using his Advair diskus since over the past 3-4 months he has only needed his rescue inhaler once every 1-2 weeks. 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 Follow-up Pertinent negatives include no abdominal pain, arthralgias, chest pain, chills, congestion, coughing, fatigue, fever, headaches, myalgias, nausea, rash, sore throat, vomiting or weakness. Past Medical History: Diagnosis Date Asthma (HCC) COVID-19 10/2021 Past Surgical History: Procedure Laterality Date VASECTOMY 2020 Current Outpatient Medications: albuterol sulfate (PROAIR RESPICLICK) 90 mcg/actuation powder inhaler, Inhale 1 puff every 6 hours as needed, Disp: 1 each, Rfl: 3 fexofenadine HCl (JAKE ORAL), Take by mouth, Disp: , Rfl: fluticasone propion-salmeteroL 250-50 mcg/dose inhaler, Inhale 1 puff every 12 hours, Disp: 180 each, Rfl: 1 Allergies Allergen Reactions Cat Dander Dog Dander Pollen Extracts Family History Problem Relation Age of Onset No Known Problems Mother Other (prediabetes) Father Diabetes Father Asthma Sister Diabetes Maternal Grandmother No Known Problems Maternal Grandfather No Known Problems Paternal Grandfather No Known Problems Son Asthma Sister Social History Socioeconomic History Marital status: Spouse name: Sharon Number of children: 2 Occupational History 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 Tobacco Use Smoking status: Never Smokeless tobacco: Never Vaping Use Vaping Use: Never used Substance and Sexual Activity Alcohol use: Not Currently Comment: Social drinker less than 1 drink per week average Drug use: Never Sexual activity: Yes Partners: Female control/protection: Surgical, None Comment: vasectomy Social History Narrative Diet: no restrictions, well rounded and varied; weight has yo-yo'ed has counted calories in the past Exercise: gym 2x/week consistently, sometimes more Social Determinants of Health Financial Resource Strain: Low Risk (04/22/2024) Overall Financial Resource Strain (CARDIA) Difficulty of Paying Living Expenses: Not hard at all Food Insecurity: Unknown (04/22/2024) Hunger Vital Sign Worried About Running Out of Food in the Last Year: Never true Transportation Needs: Unknown (04/22/2024) PRAPARE - Transportation Lack of Transportation (Medical): No Social Connections: Unknown (04/22/2024) Social Connection and Isolation Panel [NHANES] Frequency of Communication with Friends and Family: More than three times a week Housing Stability: Unknown (04/22/2024) Housing Stability Vital Sign Unable to Pay for Housing in the Last Year: No Review of Systems Constitutional: Negative. Negative for chills, fatigue and fever. HENT: Negative for congestion, ear pain, rhinorrhea, sinus pain, sneezing, sore throat and tinnitus. Eyes: Negative for pain. Respiratory: Negative for cough, choking, chest tightness, shortness of breath and wheezing. Cardiovascular: Negative for chest pain. Gastrointestinal: Negative for abdominal pain, constipation, diarrhea, nausea and vomiting. Endocrine: Negative for polydipsia and polyuria. Genitourinary: Negative for dysuria, hematuria, penile discharge, testicular pain and urgency. Musculoskeletal: Negative for arthralgias, back pain, gait problem and myalgias. Skin: Negative for rash. Neurological: Negative for seizures, syncope, weakness and headaches. Psychiatric/Behavioral: Negative for agitation, confusion, hallucinations and suicidal ideas. The patient is not nervous/anxious. All other systems reviewed and are negative. BP 100/60 (BP Location: Right arm, Patient Position: Sitting, Cuff Size: Large Adult) Pulse 65 Temp 36.4 ??C (97.5 ??F) (Temporal) Ht 174 cm (68.5 ) Wt 97.3 kg (214 lb 9.6 oz) SpO2 98% BMI 32.16 kg/m?? Physical Exam Vitals reviewed. Constitutional: Appearance: Normal appearance. HENT: Head: Normocephalic and atraumatic. Right Ear: External ear normal. Left Ear: External ear normal. Eyes: Extraocular Movements: Extraocular movements intact. Pupils: Pupils are equal, round, and reactive to light. Cardiovascular: Rate and Rhythm: Normal rate and regular rhythm. Pulses: Normal pulses. Heart sounds: Normal heart sounds. Pulmonary: Effort: Pulmonary effort is normal. Breath sounds: Normal breath sounds. No wheezing or rales. Musculoskeletal: General: Normal range of motion. Cervical back: Normal range of motion and neck supple. Skin: General: Skin is warm and dry. Neurological: General: No focal deficit present. Mental Status: He is alert and oriented to person, place, and time. Psychiatric: Mood and Affect: Mood normal. Behavior: Behavior normal. Augustus Perdue was seen today for follow-up. Diagnoses and all orders for this visit: Prediabetes - Comprehensive metabolic panel(CMP); Future - Hemoglobin A1c; Future - Comprehensive metabolic panel(CMP) - Hemoglobin A1c Elevated LDL cholesterol level - Comprehensive metabolic panel(CMP); Future - Lipid panel; Future - Comprehensive metabolic panel(CMP) - Lipid panel Moderate persistent asthma, unspecified whether complicated (HCC) Family history of diabetes mellitus - Hemoglobin A1c; Future - Hemoglobin A1c At increased risk for exposure to rabies virus - Rabies Vaccine Resp titer RFFIT; Future - Rabies Vaccine Resp titer RFFIT Need for hepatitis C screening test - Hepatitis C Virus (HCV) Antibody With Reflex to Quantitative Real-time PCR; Future - Hepatitis C Virus (HCV) Antibody With Reflex to Quantitative Real-time PCR - check fasting labs today including rabies titers; no acute symptoms or recent bites/high risk exposure - c/w current med regimen for asthma and specialist follow up - c/w healthy dietary and lifestyle modifications to improve lipids and glycemic control Return in about 3 months (around 07/25/2024) for Annual physical, Next scheduled follow up. Be Reno DO documented in this encounter Plan of Treatment Not on file documented as of this encounter Procedures Procedure Name Priority Date/Time Associated Diagnosis Comments RABIES NEUT.ABS TITRAT.(RFFIT) Routine 04/24/2024 10:16 AM EDT At increased risk for exposure to rabies virus HEPATITIS C ANTIBODY Routine 04/24/2024 10:16 AM EDT Need for hepatitis C screening test HEMOGLOBIN A1C Routine 04/24/2024 10:16 AM EDT Prediabetes Family history of diabetes mellitus LIPID PANEL Routine 04/24/2024 10:16 AM EDT Elevated LDL cholesterol level COMPREHENSIVE METABOLIC PANEL Routine 04/24/2024 10:16 AM EDT Prediabetes Elevated LDL cholesterol level documented in this encounter Results * Rabies Vaccine Resp titer RFFIT (04/24/2024 10:16 AM EDT) Rabies Vaccine Resp Titer TNP IU/mL [facility] Comment: TEST NOT PERFORMED. ?? Specimen received at room temperature. Blood 04/24/2024 10:1 6 AM EDT 04/25/2024 7:10 AM EDT Narrative [facility] - 04/25/2024 12:30 PM EDT FASTING: UNKNOWN Resulting Agency Comment Performing Organization Information: ?Site ID: ?Name: [facility] ?Address: [address] [place] [address] ?Director: Liang Robles D.O. Be Reno DO LAB BLOOD ORDERAB LES [facility] [address] [place] [address] * (ABNORMAL) Hemoglobin A1c (04/24/2024 10:16 AM EDT) Glycohemoglobin A1C 5.7(H) <5.7 % of total Hgb [facility] Comment: For someone without known diabetes, a hemoglobin A1c value between 5.7% and 6.4% is consistent with prediabetes and should be confirmed with a follow-up test. For someone with known diabetes, a value <7% indicates that their diabetes is well controlled. A1c targets should be individualized based on duration of diabetes, age, comorbid conditions, and other considerations. This assay result is consistent with an increased risk of diabetes. Currently, no consensus exists regarding use of hemoglobin A1c for diagnosis of diabetes for children. Blood 04/24/2024 10:1 6 AM EDT 04/25/2024 7:10 AM EDT Narrative [facility] - 04/25/2024 12:30 PM EDT FASTING: UNKNOWN Resulting Agency Comment Performing Organization Information: ?Site ID: [id number] ?Name: [facility] ?Address: [address] [place] [phone] ?Director: Abdifatah Fonseca Be Reno DO LAB BLOOD ORDERAB LES [facility] * (ABNORMAL) Lipid panel (04/24/2024 10:16 AM EDT) [facility] Cholesterol, Total 187 <200 mg/dL [facility] HDL Cholesterol 48 > OR = 40 mg/dL [facility] Triglycerides 71 <150 mg/dL [facility] LDL Cholesterol Calc 122(H) mg/dL (calc) [facility] Comment: Reference range: <100 Desirable range <100 mg/dL for primary prevention; ?? <70 mg/dL for patients with CHD or diabetic patients with > or = 2 CHD risk factors. LDL-C is now calculated using the Buster-Thao calculation, which is a validated novel method providing better accuracy than the Friedewald equation in the estimation of LDL-C. Buster SS et al. BRISEYDA. 2013;310(19): 5309-3873 (http://education.Carmine.UpDroid/faq/NDQ363) Cholesterol/HDL Ratio 3.9 <5.0 (calc) [facility] Non-HDL 139(H) <130 mg/dL (calc) [facility] Comment: For patients with diabetes plus 1 major ASCVD risk factor, treating to a non-HDL-C goal of <100 mg/dL (LDL-C of <70 mg/dL) is considered a therapeutic option. Blood 04/24/2024 10:1 6 AM EDT 04/25/2024 7:10 AM EDT Narrative [facility] - 04/25/2024 12:30 PM EDT FASTING: UNKNOWN Resulting Agency Comment Performing Organization Information: ?Site ID: [id number] ?Name: [facility] ?Address: [address] [place] [phone] ?Director: Abdifatah Fonseca Be Reno DO LAB BLOOD ORDERAB LES [facility] * Comprehensive metabolic panel(CMP) (04/24/2024 10:16 AM EDT) Glucose 88 65 - 99 mg/dL [facility] Comment: ? Fasting reference interval BUN 23 7 - 25 mg/dL [facility] Creatinine 1.14 0.60 - 1.26 mg/dL [facility] EGFR 88 > OR = 60 mL/min/1. 73m2 [facility] BUN/Creatinine Ratio SEE NOTE: 6 - 22 (calc) [facility] Comment: ?? Not Reported: BUN and Creatinine are within ?? reference range. ? Sodium 139 135 - 146 mmol/L [facility] Potassium 4.4 3.5 - 5.3 mmol/L [facility] Chloride 103 98 - 110 mmol/L [facility] Carbon Dioxide 29 20 - 32 mmol/L [facility] Calcium 9.7 8.6 - 10.3 mg/dL [facility] Protein, Total 7.2 6.1 - 8.1 g/dL [facility] Albumin 4.7 3.6 - 5.1 g/dL [facility] Globulin 2.5 1.9 - 3.7 g/dL (calc) [facility] A/G Ratio 1.9 1.0 - 2.5 (calc) [facility] Total Bilirubin 0.5 0.2 - 1.2 mg/dL [facility] Alkaline Phosphatase 68 36 - 130 U/L [facility] AST/SGOT 21 10 - 40 U/L [facility] ALT (SGPT) 32 9 - 46 U/L [facility] Blood 04/24/2024 10:1 6 AM EDT 04/25/2024 7:10 AM EDT Narrative [facility] - 04/25/2024 12:30 PM EDT FASTING: UNKNOWN Resulting Agency Comment Performing Organization Information: ?Site ID: [id number] ?Name: [facility] ?Address: [address] [place] [address] ?Director: Abdifatah Fonseca Be Reno DO LAB BLOOD ORDERAB LES Performing Organization Address [facility] Co de Phone Number [facility] * Hepatitis C Virus (HCV) Antibody With Reflex to Quantitative Real-time PCR (04/24/2024 10:16 AM EDT) HEPATITIS C ANTIBODY NON-REACTI VE NON-REACT PONCHO [facility] Comment: HCV antibody was non-reactive. There is no laboratory evidence of HCV infection. In most cases, no further action is required. However, if recent HCV exposure is suspected, a test for HCV RNA (test code 08879) is suggested. For additional information please refer to http://education.NanoTune/faq/JJF52h0 (This link is being provided for informational/ educational purposes only.) Blood 04/24/2024 10:1 6 AM EDT 04/25/2024 7:10 AM EDT Narrative [facility] - 04/25/2024 12:30 PM EDT FASTING: UNKNOWN Resulting Agency Comment Performing Organization Information: ?Site ID: [id number] ?Name: [facility] ?Address: [address] [place] [address] ?Director: Abdifatah Fonseca Be Reno DO LAB BLOOD ORDERAB LES Performing Organization Address City/[facility]/ZIP Co de Phone Number [facility] documented in this encounter Visit Diagnoses Diagnosis Prediabetes- Primary Other abnormal glucose Elevated LDL cholesterol level Moderate persistent asthma, unspecified whether complicated (HCC) Family history of diabetes mellitus At increased risk for exposure to rabies virus Need for hepatitis C screening test Special screening examination for other specified viral diseases documented in this encounter Care Teams Franchise Sales Manager Relationship Specialty Start Date End Date Be Reno DO [address] [place] [address] PCP - General Family Medicine 12/14/22 documented as of this encounter
--- OUTSIDE RECORDS SUMMARY | 2024-11-12 16:14 | XMS_ITS | Encounter Summary ---
Author Organization [facility] Address [address] [place] [address] Care Team Providers Care Imaging System Administrator Name Role Phone Be Reno DO Primary Care Provider [phone] Encounter Details Date Type Department Care Team (Latest Contact Info) Description 04/24/2024 11:38 AM EDT - 04/24/2024 11:59 PM EDT Hospital Encounter [facility] [address] [place] [address] Discharge Disposition: Home or Self Care Social History Tobacco Use Types Packs/Day Years [...] and Family Not on file 04/22/2024 Attends Confucianist Services Not on file 04/22 Active Member [...] AM EDT documented as of this encounter Medications at Time of Discharge Medication Sig Dispensed Refills Start Date End Date fexofenadine HCl (JAKE ORAL) Take by mouth albuterol sulfate (PROAIR RESPICLICK) 90 mcg/actuation powder inhalerIndications:Modera te persistent asthma, unspecified whether complicated (HCC) Inhale 1 puff every 6 hours as needed 1 each 3 01/04/2023 05/19/2024 fluticasone propion-salmeteroL 250-50 mcg/dose inhalerIndications:Modera te persistent asthma, unspecified whether complicated (HCC) Inhale 1 puff every 12 hours 180 each 1 01/04/2023 07/31/2024 documented as of this encounter Plan of Treatment Not on file documented as of this encounter Procedures Procedure Name Priority Date/Time Associated Diagnosis Comments RABIES NEUT.ABS TITRAT.(RFFIT) Routine 04/24/2024 10:16 AM EDT At increased risk for exposure to rabies virus HEMOGLOBIN A1C Routine 04/24/2024 10:16 AM EDT Prediabetes Family history of diabetes mellitus LIPID PANEL Routine 04/24/2024 10:16 AM EDT Elevated LDL cholesterol level COMPREHENSIVE METABOLIC PANEL Routine 04/24/2024 10:16 AM EDT Prediabetes Elevated LDL cholesterol level HEPATITIS C ANTIBODY Routine 04/24/2024 10:16 AM EDT Need for hepatitis C screening test documented in this encounter Results * Rabies Vaccine Resp titer RFFIT (04/24/2024 10:16 AM EDT) Rabies Vaccine Resp Titer TNP IU/mL [facility] Comment: TEST NOT PERFORMED. ?? Specimen received at room temperature. Blood 04/24/2024 10:1 6 AM EDT 04/25/2024 7:10 AM EDT Narrative [facility] - 04/25/2024 12:30 PM EDT FASTING: UNKNOWN Resulting Agency Comment Performing Organization Information: ?Site ID: ?Name: [facility] ?Address: [address] [place] [phone] ?Director: Liang Robles D.O. Be Reno DO LAB BLOOD ORDERAB LES [facility] [address] [place] [address] * (ABNORMAL) Hemoglobin A1c (04/24/2024 10:16 AM [...] Performing Organization Information: ?Site ID: [id number] ?Name: [facility] [employer] ?Address: [address] [place] [phone] ?Director: Abdifatah Fonseca Be Reno DO LAB BLOOD ORDERAB LES [facility] * (ABNORMAL) Lipid panel (04/24/2024 10:16 AM EDT) [facility] Signature Cholesterol, Total 187 <200 mg/dL [facility] [...] factors. LDL-C is now calculated using the Buster-Osuna calculation, which is a validated novel method providing better accuracy than the Friedewald equation in the estimation of LDL-C. Buster SS et al. BRISEYDA. 2013;310(19): 4035-7788 (http://education.Feathr.Skytap/faq/ZNC213) Cholesterol/HDL Ratio 3.9 <5.0 (calc) [facility] [...] Performing Organization Information: ?Site ID: [id number] ?Name: [facility] [employer] ?Address: [address] [place] [phone] ?Director: Abdifatah Fonseca Be Reno DO LAB [...] Performing Organization Information: ?Site ID: [id number] ?Name: [facility] ?Address: [address] [place] [address] ?Director: Abdifatah Fonseca Be Reno DO LAB BLOOD ORDERAB LES Performing Organization Address [facility] de Phone Number [facility] * Hepatitis [...] a test for HCV RNA (test code 05202) is suggested. For additional information please refer to http://education.Thomas-Krenn/faq/WLS48g8 (This link is being provided for informational/ educational purposes only.) Blood 04/24/2024 10:1 6 AM EDT 04/25/2024 7:10 AM EDT Narrative [facility] - 04/25/2024 12:30 PM EDT FASTING: UNKNOWN Resulting Agency Comment Performing Organization Information: ?Site ID: [id number] ?Name: [facility] ?Address: [address] [place] [address] ?Director: Abdifatah Fonseca Be Reno DO LAB BLOOD ORDERAB LES Performing Organization Address [facility] Co de Phone Number [facility] documented in this encounter Visit Diagnoses Not on filedocumented in this encounter Care Teams Imaging System Administrator Relationship Specialty Start Date End Date Be Reno DO [address] [place] [address] PCP - General Family Medicine 12/14/22 documented as of this encounter
--- OUTSIDE RECORDS SUMMARY | 2024-11-12 16:14 | XMS_ITS | Encounter Summary ---
Author Organization [facility] Address [address] [place] [address] Care Team Providers Care Field Mechanical Meter Tester Name Role Phone Be Reno DO Primary Care Provider [phone] Reason for Visit * Reason Onset Date Comments Medication Refill 05/19/2024 Encounter Details Date Type Department Care Team (Late st Contact Info) Description 05/19/2024 Refill [facility] [place] [address] [place], [place] [id number] Be Reno DO [address] [place], [place] [address] Moderate persistent asthma, unspecified whether complicated (HCC) [J45.40] Social History Tobacco Use Types Packs/Day Years [...] and Family Not on file 04/22/2024 Attends Hoahaoism Services Not on file 04/22 Active Member [...] AM EDT documented as of this encounter Miscellaneous Notes * Telephone Encounter - Joan Ulrich RN - 05/19/2024 9:34 PM EDT GRABIEL - 04/24/2024, F/U Appt for Prediabetes, Elevated LDL, Moderate persistent asthma Last CPE - 12/14/2022 Scheduled F/U Appt - 07/31/2024 (AWV) Last labs 04/24/2024 Last ordered 01/04/2023 1 each, 3 refills documented in this encounter Plan of Treatment Not on file documented as of this encounter Visit Diagnoses Diagnosis Moderate persistent asthma, unspecified whether complicated (HCC) documented in this encounter Care Teams Field Mechanical Meter Tester Relationship Specialty Start Date End Date Be Reno DO [address] [place] [address] PCP - General Family Medicine 12/14/22 documented as of this encounter
--- OUTSIDE RECORDS SUMMARY | 2024-11-12 16:14 | XMS_ITS | Encounter Summary ---
Author Organization [facility] Address [address] [place] [address] Care Team Providers Care Fagot Heater Helper Name Role Phone Be Reno DO Primary Care Provider [phone] Encounter Details Date Type Department Care Team (Late st Contact Info) Description 04/26/2024 Orders Only [facility] at [place] [address] [place], [place] [id number] Be Reno DO [address] [place], [place] [id number] At increased risk for exposure to rabies virus (Primary Dx) [Z91.89] Social History Tobacco Use Types Packs/Day Years [...] and Family Not on file 04/22/2024 Attends [employer] Services Not on file 04/22 Active Member [...] AM EDT documented as of this encounter Plan of Treatment Not on file documented as of this encounter Procedures Procedure Name Priority Date/Time Associated Diagnosis Comments RABIES NEUT.ABS TITRAT.(RFFIT) Routine 05/06/2024 1:21 PM EDT At increased risk for exposure to rabies virus documented in this encounter Results * Rabies Vaccine Resp titer RFFIT (05/06/2024 1:21 PM EDT) [facility] Rabies Vaccine Resp Titer 05/06/24 IU/mL [facility] Comment: Reportable range is 0.1 to 15.0 IU/mL ? LESS THAN 0.1 IU/mL: Below detection limit RABIES NEUTRALIZING ANTIBODY TITRATION ?(RFFIT) RESULTS VERIFIED BY: ? Liang Robles DO, CLIA Director ? In humans, a result of 0.5 IU/mL or higher is considered an acceptable response to rabies vaccination according to the World Health Organization (WHO) guidelines; see WHO and Advisory Committee on Immunization Practices documents for additional guidance. ??Also, there is more information at www.vet.neu.edu/rabies. (Note: the symbol > means greater than and >/= means greater than or equal to ). ?? Results are confidential personal health information. All disclosures must be in accordance with HIPAA. Blood 05/06/2024 1:21 PM EDT 05/07/2024 4:38 AM EDT Narrative Resulting Agency Comment Performing Organization Information: ?Site ID: ?Name: [facility] ?Address: [address] [place] [address] ?Director: Liang Robles D.O. Be Reno DO LAB BLOOD ORDERAB [facility] [address] [place] [address] documented in this encounter Visit Diagnoses Diagnosis At increased risk for exposure to rabies virus- Primary documented in this encounter Care Teams Fagot Heater Helper Relationship Specialty Start Date End Date Be Reno DO [address] [place] [id number] PCP - General Family Medicine 12/14/22 documented as of this encounter
--- OUTSIDE RECORDS SUMMARY | 2024-11-12 16:14 | XMS_ITS | Encounter Summary ---
Author Organization [facility] Address [address] [place] [address] Care Team Providers Care Manager Practice Name Role Phone Be Reno DO Primary Care Provider [phone] Encounter Details Date Type Department Care Team (Latest Contact Info) Description 05/06/2024 1:20 PM EDT - 05/06/2024 11:59 PM EDT Hospital Encounter [facility] [address] [place] [address] Discharge Disposition: Home or Self [...] and Family Not on file 04/22/2024 Attends [employer] Services Not on file 04/22 Active Member [...] Resp titer RFFIT (05/06/2024 1:21 PM EDT) Rabies Vaccine Resp Titer 05/06/24 IU/mL [facility] Comment: Reportable range is 0.1 to 15.0 IU/mL ? LESS THAN 0.1 IU/mL: Below detection limit RABIES NEUTRALIZING ANTIBODY TITRATION ?(RFFIT) RESULTS VERIFIED BY: ? Liang Robles DO, DANIEL Director ? In humans, a result of 0.5 IU/mL or higher is considered an acceptable response to rabies vaccination according to the World Health Organization (WHO) guidelines; see WHO and Advisory Committee on Immunization Practices documents for additional guidance. ??Also, there is more information at www.vet.cou.edu/rabies. (Note: the symbol > means greater than and >/= means greater than or equal to ). ?? Results are confidential personal health information. All disclosures must be in accordance with HIPAA. Blood 05/06/2024 1:21 PM EDT 05/07/2024 4:38 AM EDT Narrative Resulting Agency Comment Performing Organization Information: ?Site ID: [id number] ?Name: [facility] ?Address: [address] [place] [address] ?Director: Linag Robles D.O. Be Reno DO LAB BLOOD ORDERAB [facility] [address] [place] [address] documented in this encounter Visit Diagnoses Not on filedocumented in this encounter Care Teams Manager Practice Relationship Specialty Start Date End Date Be Reno DO [address] [place] [address] PCP - General Family Medicine 12/14/22 documented as of this encounter
--- OUTSIDE RECORDS SUMMARY | 2024-11-12 16:14 | XMS_ITS | Encounter Summary ---
Author Organization [facility] Address [address] [place] [address] Care Team Providers Care Toys And Games Hand Finisher Name Role Phone Be Reno DO Primary Care Provider [phone] Reason for Visit * Reason Comments Asthma Pt presents to offic e for asthma flare ups. Pt stated he has been using his advair 2x per day and albuterol inhaler at least 3-5 times per day. Pt feels SOB. Pt has been getting allergy injections but in the past month he has not received any due to being sick and a nurse not being available. Cough Pt presents to offic e for dry cough, 2weeks ago he had a cold and since then his asthma has been flaring up. Pt also had covid in 10/2021 and 10/2022. Encounter Details Date Type Department Care Team (Late st Contact Info) Description 01/04/2023 2:30 PM EST Follow-Up [facility] Primary Care at [place] [address] [place], [place] [id number] Be Reno DO [address] [place], [place] [id number] Moderate persistent asthma, unspecified whether complicated (Primary Dx) [J45.40]; Prediabetes [R73.03] Social History Tobacco Use Types Packs/Day Years [...] neighbors? More than three times a week 01/04/2023 Frequency of Social Gatherin gs with Friends and Family Not on file 01/04/2023 Attends Jew Services Not on file 01/04 Active Member of Clubs or Organizations Not on f ile 01/04/2023 Attends Club or Organization Meetings Not on luis felipe e 01/04/2023 Marital Status Not on file 01/04/2023 Overall Financial Resource Strain (CARDIA) Answe r Date Recorded How hard is it for you to pa y for the very basics like food, housing, medical care, and heating? Not hard at all 01/04/2023 Hunger Vital Sign Answer Date Recorded Within the past 12 months, y ou worried that your food would run out before you got the money to buy more. Never true 01/04/20 Ran Out of Food in the Last Year Not on file 01/04/2023 PRAPARE - Transportation Answer Date Re corded In the past 12 months, has l ack of transportation kept you from medical appointments or from getting medications? No 01/04/2023 Lack of Transportation (Non-Medical) Not on file 01/04/2023 Housing Stability Vital Sign Answer Jose e Recorded In the last 12 months, was t here a time when you were not able to pay the mortgage or rent on time? No 01/04/2023 Number of Places Lived in the Last Year Not on f ile 01/04/2023 Unstable Housing in the Last Year Not on file 01/04/2023 Sex and Gender Information Value Date Recorded Sex Assigned at Male 02/01/2024 1:22 PM EDT Gender Identity Male 02/01/2024 1:22 PM EDT Sexual Orientation Straight 04/22/2024 10 :53 AM EDT documented as of this encounter Last Filed Vital Signs Vital Sign Reading Time Taken Comments Blood Pressure 122/60 01/04/2023 2:12 PM EST Pulse 82 01/04/2023 2:12 PM EST Temperature 36.1 ??C (97 ??F) 01/04/2023 2:12 PM EST Respiratory Rate - - Oxygen Saturation 97% 01/04/2023 2:12 PM EST Inhaled Oxygen Concentration - - Weight 98.4 kg (217 lb) 01/04/2023 2:12 PM EST Height 174 cm (5' 8.5 ) 01/04/2023 2:12 PM EST Body Mass Index 32.51 01/04/2023 2:12 PM EST documented in this encounter Progress Notes * Be Phamcharlie, DO - 01/04/2023 2:30 PM EST Augustus Heaton is a 32 y.o. male who presents with Chief Complaint Patient presents with ??? Asthma Pt presents to office for asthma flare ups. Pt stated he has been using his advair 2x per day and albuterol inhaler at least 3-5 times per day. Pt feels SOB. Pt has been getting allergy injections but in the past month he has not received any due to being sick and a nurse not being available. ??? Cough Pt presents to office for dry cough, 2weeks ago he had a cold and since then his asthma has been flaring up. Pt also had covid in 10/2021 and 10/2022. Augustus presents to our office today with complaints of worsening asthma symptoms. States that ever since a recent respiratory illness from 2 weeks ago, he has noticed that he has been coughing and using his inhalers more. 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 Denies fevers, cough production, chest pain or leg swelling. Reports history of COVID in 10/2021 and 10/2022. Past Medical History: Diagnosis Date ??? Asthma ??? COVID-19 10/2021 Past Surgical History: Procedure Laterality Date ??? VASECTOMY 2020 Current Outpatient Medications: ??? fexofenadine HCl (JAKE ORAL), Take by mouth, Disp: , Rfl: ??? pseudoephedrine HCl (SUDAFED ORAL), Take by mouth, Disp: , Rfl: ??? albuterol sulfate (PROAIR RESPICLICK) 90 mcg/actuation powder inhaler, Inhale 1 puff every 6 hours as needed, Disp: 1 each, Rfl: 3 ??? fluticasone propion-salmeteroL 250-50 mcg/dose inhaler, Inhale 1 puff every 12 hours, Disp: 180each, Rfl: 1 ??? methylPREDNISolone (MEDROL DOSEPACK) 4 mg tablet, follow package directions, Disp: 21 tablet, Rfl: 0 Allergies Allergen Reactions ??? Cat Dander ??? Dog Dander ??? Pollen Extracts Family History Problem Relation Age of Onset ??? No Known Problems Mother ??? Other (prediabetes) Father ??? Diabetes Father ??? Asthma Sister ??? Diabetes Maternal Grandmother ??? No Known Problems Maternal Grandfather ??? No Known Problems Paternal Grandfather ??? No Known Problems Son ??? Asthma Sister Social History Socioeconomic History ??? Marital status: Unknown ??? Number of children: 2 Occupational History ??? 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 Smoking status: Never ??? Smokeless tobacco: Never Vaping Use ??? Vaping Use: Never used Substance and Sexual Activity ??? Alcohol use: Not Currently Comment: Social drinker less than 1 drink per week average ??? Drug use: Never ??? Sexual activity: Yes Partners: Female control/protection: Surgical, None Comment: vasectomy Social History Narrative Diet: no restrictions, well rounded and varied; weight has yo-yo'ed has counted calories in the past Exercise: gym 2x/week consistently, sometimes more Social Determinants of Health Financial Resource Strain: Low Risk ??? Difficulty of Paying Living Expenses: Not hard at all Food Insecurity: Unknown ??? Worried About Running Out of Food in the Last Year: Never true Transportation Needs: Unknown ??? Lack of Transportation (Medical): No Social Connections: Unknown ??? Frequency of Communication with Friends and Family: More than three times a week Housing Stability: Unknown ??? Unable to Pay for Housing in the Last Year: No Review of Systems Constitutional: Negative for chills, fatigue and fever. HENT: [...] other systems reviewed and are negative. BP 122/60 Pulse 82 Temp 36.1 ??C (97 ??F) (Temporal) Ht 174 cm (68.5 ) Wt 98.4 kg (217 lb) SpO2 97% BMI 32.51 kg/m?? Physical Exam Vitals reviewed. Constitutional: Appearance: Normal appearance. HENT: Head: Normocephalic and atraumatic. Right Ear: External ear normal. Left Ear: External ear normal. Mouth/Throat: Mouth: Mucous membranes are moist. Pharynx: Oropharynx is clear. Eyes: Extraocular Movements: Extraocular movements intact. Pupils: Pupils are equal, round, and reactive to light. Cardiovascular: Rate and Rhythm: Normal rate and regular rhythm. Pulses: Normal pulses. Heart sounds: Normal heart sounds. Pulmonary: Effort: Pulmonary effort is normal. Breath sounds: Normal breath sounds. Musculoskeletal: General: Normal range of motion. Cervical back: Normal range of motion and neck supple. Skin: General: Skin is warm and dry. Neurological: General: No focal deficit present. Mental Status: He is alert and oriented to person, place, and time. Psychiatric: Mood and Affect: Mood normal. Behavior: Behavior normal. Augustus was seen today for asthma and cough. Diagnoses and all orders for this visit: Moderate persistent asthma, unspecified whether complicated - methylPREDNISolone (MEDROL DOSEPACK) 4 mg tablet; follow package directions - albuterol sulfate (PROAIR RESPICLICK) 90 mcg/actuation powder inhaler; Inhale 1 puff every 6 hours as needed - Discontinue: fluticasone propion-salmeteroL 250-50 mcg/dose inhaler; Inhale 1 puff every 12 hours - fluticasone propion-salmeteroL 250-50 mcg/dose inhaler; Inhale 1 puff every 12 hours Prediabetes - discussed continued use of rescue inhaler; refilled - increased strength of advair ; 2 puff daily - consider singulair after recent exacerbation is resolved for maintenance - recommended 3rd gen antihistamine daily and nasal spray (astelin / fluticasone) - Rx medrol dosepack if symptoms persist or worsen - also discussed need for repeat [id number] in 3-6 months and dietary and lifestyle modifications Return in about 6 months (around 07/04/2023), or if symptoms worsen or fail to improve, for Next scheduled follow up. Be Reno DO documented in this encounter Plan of Treatment Not on file documented as of this encounter Visit Diagnoses Diagnosis Moderate persistent asthma, unspecified whether complicated (HCC)- Primary Prediabetes Other abnormal glucose documented in this encounter Care Teams Toys And Games Hand Finisher Relationship Specialty Start Date End Date Be Reno DO [address] [place] [address] PCP - General Family Medicine 12/14/22 documented as of this encounter
--- OUTSIDE RECORDS SUMMARY | 2024-11-12 16:14 | XMS_ITS | Encounter Summary ---
Author Organization [facility] Address [address] [place] [address] Care Team Providers Care Staff Trainer Name Role Phone Be Reno DO Primary Care Provider [phone] Reason for Referral * Physical Therapy (Routine) - Authorized Specialty Diagnoses / Procedures Referred By Christiane soto Referred To Contact Physical Therapy Diagnoses Acute right-sided low back pain without sciatica Be Reno DO [address] [place] [address] Referral ID Status Reason Start Date Expiration Date Visits Requested Visits Authorized [id number] Authorized Specialty Services Required 07/31/2024 07/31/2025 5 5 Scheduling Instructions To make an appointment contact the department as noted above. Otherwise, contact one of the [facility]'s Outpatient Rehab locations listed below or Central Scheduling at: . [facility]: [place] - [phone] [place] - [phone] [place] - [phone] [place] - [phone] [place] - [phone] [place] / Sports [facility]: [phone] [place] - [phone] [place] - [phone] [place] - [phone] [place] - [phone] [place] - [phone] [place] - [phone] [place] - [phone] [place] - [phone] [place]- [phone] [place] [phone] [facility] (in [place]) - [phone] [facility]: [place] [phone] Option 1 [place] [phone] [place] [phone] [facility] [phone] [facility] [phone] [facility]: [place] - [phone] [place] - [phone] [facility] [phone] [place] - [phone] [place] - [phone] [place] - [phone] [place] - [phone] [place] - [phone] [place] - [phone] [place] - [phone] [facility] - [phone] * Consultation (Routine) - Authorized Specialty Diagnoses / Procedures Referred By Christiane soto Referred To Contact Pulmonology Diagnoses Suspected sleep apnea Be Reno DO [address] [place] [address] [facility] [address] Referral ID Status Reason Start Date Expiration Date Visits Requested Visits Authorized [id number] Authorized Specialty Services Required 07/31/2024 07/31/2025 3 3 * Consultation (Routine) - Authorized Specialty Diagnoses / Procedures Referred By Christiane soto Referred To Contact Nutrition Diagnoses Prediabetes Class 1 obesity with serious comorbidity and body mass index (BMI) of 32.0 to 32.9 in adult, unspecified obesity type Be Reno DO [address] [place] [address] Referral ID Status Reason Start Date Expiration Date Visits Requested Visits Authorized [id number] Authorized Specialty Services Required 07/31/2024 07/31/2025 3 3 Reason for Visit * Reason Comments Annual Exam Pt presents to offic e for annual exam. He is fasting for labwork Encounter Details Date Type Department Care Team (Late st Contact Info) Description 07/31/2024 9:30 AM EDT Office Visit [facility] [place] [address] [place] [address] Be Reno DO [address] [place], [place] [id number] Well adult exam (Primary Dx) [Z00.00]; Needs flu shot [Z23]; Prediabetes [R73.03]; Moderate persistent asthma, unspecified whether complicated (HCC) [J45.40]; Class 1 obesity with serious comorbidity and body mass index (BMI) of 32.0 to 32.9 in adult, unspecified obesity type [E66.9, Z68.32]; Need for COVID-19 vaccine [Z23]; Suspected sleep apnea [R29.818]; Acute right-sided low back pain without sciatica [M54.50] Social History Tobacco Use Types Packs/Day Years Used Date Smoking Tobacco: Never Smokeless Tobacco: Never Tobacco Cessation:Counseling Given: Not Answered Alcohol Use Standard Drinks/Week Comments Not Currently 0 (1 standard drink = 0.6 oz pure alcohol) Social drinker less than 1-2 drinks monthly [facility] Utilities Answer Date Recorded In the past 12 months has [employer], gas, oil, or water [employer] threatened to shut off services in your [...] often do you attend chur ch or catholic services? Never 07/31/2024 Do you belong to any clubs o r organizations such as hindu groups, unions, fraternal or athletic groups, or [...] Date Recorded PHQ-2 Total Score 0 07/28/2024 [facility] - Occupational Stress [...] place to sleep or slept in a prison (including now)? No 07/31/2024 Sex and Gender [...] Mass Index 32.23 07/31/2024 9:40 AM EDT documented in this encounter Progress Notes * Be Reno, DO - 07/31/2024 9:30 AM EDT Augustus Heaton is a 34 y.o. male who presents with Chief Complaint Patient presents with Annual Exam Pt presents to office for annual exam. He is fasting for labwork Iron to our office today for his annual physical exam. He is currently fasting for lab work and will return for his flu shot. Denies any acute complaints otherwise however, does want to discuss pharmacotherapy for weight loss. Continues to struggle with losing weight despite trying multiple diets. Additionally, patient reports acute onset right-sided low back pain that has been present for the past 2 weeks. Patient denies any preceding trauma or injury. Exacerbated by prolonged sitting and resolves with standing, exercising or lying down. Denies any other radicular symptoms, saddle anesthesia, bowel or bladder incontinence or history of back pain. Annual Exam Pertinent negatives include no abdominal pain, arthralgias, chest pain, chills, congestion, coughing, diaphoresis, fatigue, fever, headaches, joint swelling, myalgias, nausea, numbness, rash, sore throat, vomiting or weakness. Past Medical History: Diagnosis Date Asthma (HCC) COVID-10/2021 Past Surgical History: Procedure Laterality Date VASECTOMY 2020 Current Outpatient Medications: albuterol sulfate (PROAIR RESPICLICK) 90 mcg/actuation powder inhaler, Inhale 1 puff every 6 hours as needed, Disp: 1 each, Rfl: 3 fexofenadine HCl (JAKE ORAL), Take by mouth, Disp: , Rfl: meloxicam (MOBIC) 15 mg tablet, Take 1 tablet (15 mg total) by mouth daily, Disp: 30 tablet, Rfl: 0 Allergies Allergen Reactions Cat Dander Dog Dander Pollen Extracts Family History Problem Relation Age of Onset No Known Problems Mother Other (prediabetes) Father Diabetes Father Asthma Sister Diabetes Maternal Grandmother No Known Problems Maternal Grandfather No Known Problems Paternal Grandfather No Known Problems Son Social History Socioeconomic History Marital status: Spouse name: Sharon Number of children: 2 Occupational History 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 Tobacco Use Smoking status: Never Smokeless tobacco: Never Vaping Use Vaping Use: Never used Substance and Sexual Activity Alcohol use: Not Currently Comment: Social drinker less than 1-2 drinks monthly Drug use: Never Sexual activity: Yes Partners: Female control/protection: Surgical, None Comment: vasectomy Social History Narrative Diet: no restrictions, well rounded and varied; weight has yo-yo'ed has counted calories in the past Exercise: gym 2x/week consistently, sometimes more Social Determinants of Health Financial Resource Strain: Low Risk (07/31/2024) Overall Financial Resource Strain (CARDIA) Difficulty of Paying Living Expenses: Not hard at all Food Insecurity: No Food Insecurity (07/31/2024) Hunger Vital Sign Worried About Running Out of Food in the Last Year: Never true Ran Out of Food in the Last Year: Never true Transportation Needs: No Transportation Needs (07/31/2024) PRAPARE - Transportation Lack of Transportation (Medical): No Lack of Transportation (Non-Medical): No Physical Activity: Sufficiently Active (07/31/2024) Exercise Vital Sign Days of Exercise per Week: 3 days Minutes of Exercise per Session: 50 min Stress: No Stress Concern Present (07/31/2024) [facility] - Occupational Stress Questionnaire Feeling of Stress : Not at all Social Connections: Unknown (07/31/2024) Social Connection and Isolation Panel [NHANES] Frequency of Communication with Friends and Family: Three times a week Frequency of Social Gatherings with Friends and Family: More than three times a week Attends Spiritism Services: Never Active Member of Clubs or Organizations: Patient declined Attends Club or Organization Meetings: Patient declined Marital Status: Housing Stability: Low Risk (07/31/2024) Housing Stability Vital Sign Unable to Pay for Housing in the Last Year: No Number of Places Lived in the Last Year: 1 Unstable Housing in the Last Year: No Depression Screening Little interest or pleasure in doing things: Not at all Feeling down, depressed, or hopeless: Not at all PHQ-2 Total Score: 0 Trouble falling or staying asleep, or sleeping too much: Not at all Feeling tired or having little energy: Several days Poor appetite or overeating: Several days Feeling bad about yourself - or that you are a failure or have let yourself or your family down: Not at all Trouble concentrating on things, such as reading the newspaper or watching television: Not at all Moving or speaking slowly that other people could have noticed? Or the opposite - being so fidgety or restless that you have been moving around a lot more than usual: Not at all Thoughts that you would be better off or of hurting yourself in some way: Not at all PHQ-9 Total Score: 2 Review of Systems Constitutional: Negative for appetite change, chills, diaphoresis, fatigue, fever and unexpected weight change. HENT: Negative for congestion, dental problem, ear pain, hearing loss, nosebleeds, rhinorrhea, sorethroat, tinnitus, trouble swallowing and voice change. Eyes: Negative for pain, discharge and visual disturbance. Respiratory: Negative for cough, chest tightness, shortness of breath and wheezing. Cardiovascular: Negative for chest pain, palpitations and leg swelling. Gastrointestinal: Negative for abdominal distention, abdominal pain, blood in stool, constipation, diarrhea, nausea and vomiting. Endocrine: Negative for cold intolerance, heat intolerance, polydipsia, polyphagia and polyuria. Genitourinary: Negative for difficulty urinating, dysuria, frequency, genital sores, hematuria, penile discharge, scrotal swelling, testicular pain and urgency. Musculoskeletal: Positive for back pain. Negative for arthralgias, gait problem, joint swelling andmyalgias. Skin: Negative for color change, pallor and rash. Neurological: Negative for dizziness, syncope, speech difficulty, weakness, numbness and headaches. Hematological: Negative for adenopathy. Does not bruise/bleed easily. Psychiatric/Behavioral: Negative for confusion, dysphoric mood and sleep disturbance. The patient is not nervous/anxious. BP 104/70 Pulse 65 Temp 36.3 ??C (97.3 ??F) (Temporal) Ht 172.7 cm (68 ) Wt 96.2 kg (212 lb) SpO2 99% BMI 32.23 kg/m?? Physical Exam Vitals reviewed. Constitutional: Appearance: Normal appearance. HENT: Head: Normocephalic and atraumatic. Right Ear: Tympanic membrane, ear canal and external ear normal. Left Ear: Tympanic membrane, ear canal and external ear normal. Nose: Nose normal. Mouth/Throat: Mouth: Mucous membranes are moist. Pharynx: Oropharynx is clear. Eyes: Extraocular Movements: Extraocular movements intact. Pupils: Pupils are equal, round, and reactive to light. Cardiovascular: Rate and Rhythm: Normal rate and regular rhythm. Pulses: Normal pulses. Heart sounds: Normal heart sounds. No murmur heard. Pulmonary: Effort: Pulmonary effort is normal. No respiratory distress. Breath sounds: Normal breath sounds. No wheezing. Abdominal: General: Bowel sounds are normal. Palpations: Abdomen is soft. Tenderness: There is no right CVA tenderness, left CVA tenderness, guarding or rebound. Musculoskeletal: General: Tenderness (R lower lumbar paraspinal region as well as inferior aspect of right posterioriliac crest just lateral to SI joint) present. No swelling. Normal range of motion. Cervical back: Normal range of motion and neck supple. Right lower leg: No edema. Left lower leg: No edema. Comments: Negative straight leg raise, negative scour test, negative AR test Skin: General: Skin is warm and dry. Capillary Refill: Capillary refill takes less than 2 seconds. Coloration: Skin is not jaundiced. Findings: No bruising or rash. Neurological: General: No focal deficit present. Mental Status: He is alert and oriented to person, place, and time. Psychiatric: Mood and Affect: Mood normal. Behavior: Behavior normal. Immunization History Administered Date(s) Administered Influenza (6 Months Up) (PF) Quadrivalent IM 11/03/2021 SARS-COV-2 (COVID-19/PFIZER) mRNA [id number] (PF) IM (LNP-S) EUA (purple) 02/04/2021, 02/25/2021, 11/03/2021 Health Maintenance Due Topic Date Due Pneumococcal Vaccine: Ped & Adult <65 (1 of 2 - PCV) Never done Hepatitis B Vaccines (1 of 3 - 19+ 3-dose series) Never done COVID VACCINE ( - 2023- season) 2024 INFLUENZA VACCINE 06/12/2024 Augustus Perdue was seen today for annual exam. Diagnoses and all orders for this visit: Well adult exam - CBC with Auto Differential; Future - Comprehensive metabolic panel(CMP); Future - TSH; Future - Lipid panel; Future - Hemoglobin A1c; Future Needs flu shot - INFLUENZA (18 YEARS UP) (PF) TRIVALENT IM (RECOMBINANT); Future Prediabetes - Hemoglobin A1c; Future - Ambulatory referral to Nutrition Services; Future Moderate persistent asthma, unspecified whether complicated (HCC) Class 1 obesity with serious comorbidity and body mass index (BMI) of 32.0 to 32.9 in adult, unspecified obesity type - Ambulatory referral to Nutrition Services; Future Need for COVID-19 vaccine - SARS-COV-2 (COVID-19/MODERNA) 50 mcg/0.5 mL (PF) IM (LNP-S); Future Suspected sleep apnea - Ambulatory referral to Sleep Medicine; Future Acute right-sided low back pain without sciatica - XR Lumbosacral Spine Trauma 2 or 3 views; Future - XR Hip Right 4+ views w Pelvis; Future - Ambulatory referral to Physical Therapy; Future - meloxicam (MOBIC) 15 mg tablet; Take 1 tablet (15 mg total) by mouth daily - CPE / fasting blood-work - preventive counseling offered and discussed - discussed dietary and lifestyle modifications - does follow dentist for routine dental care - does follow tobacco hanger for routine visual screening - 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 Be Reno DO documented in this encounter Plan of Treatment Scheduled Orders Name Type Priority Associated Diagnoses Orde r Schedule XR Lumbosacral Spine Trauma 2 or 3 views Imaging Routine Acute right-sided low back pain without sciatica Expected: 07/31/2024, Expires: 10/30/2025 XR Hip Right 4+ views w Pelvis Imaging Routine Acute right-sided low back pain without sciatica Expected: 07/31/2024, Expires: 10/30/2025 Scheduled Referrals Name Type Priority Associated Diagnoses Order Schedule Ambulatory referral to Nutrition Services Outpatient Referral Routine Prediabetes Class 1 obesity with serious comorbidity and body mass index (BMI) of 32.0 to 32.9 in adult, unspecified obesity type 1 Occurrences starting 07/31/2024 until 07/31/2025 Ambulatory referral to Sleep Medicine Outpatient Referral Routine Suspected sleep apnea 1 Occurrences starting 07/31/2024 until 07/31/2025 Ambulatory referral to Physical Therapy Outpatient Referral Routine Acute right-sided low back pain without sciatica 1 Occurrences starting 07/31/2024 until 07/31/2025 documented as of this encounter Results * Hemoglobin A1c (07/31/2024 10:15 AM EDT) [facility] Glycohemoglobin A1C 5.5 4.0 - 5.6 % 08/01/2024 12:06 AM EDT [facility] Comment: Interpretive information based on Diagnosis and Classification of Diabetes Mellitus, [place] [employer]. < 4.0: Falsely low HbA1c results may be observed in ??patients with clinical conditions that shorten erythrocyte life span or decrease mean erythrocyte age. HbA1c may not accurately reflect glycemic control when clinical conditions that affect erythrocyte survival are present. >/= 5.7: Hemoglobin A1c values of 5.7-6.4 percent indicate an increased risk for developing diabetes mellitus. >/= 6.5 Diabetes. In diabetic patients, HbA1c should be discussed with healthcare provider. <18 years: Hemoglobin A1c criteria for diagnosing diabetes have not been established for patients who are <18 years of age. Blood Venipuncture / Unknown 07/31/2024 10:15 AM EDT 07/31/2024 11:43 PM EDT Comment:Add'l Desc: Be Reno DO LAB BLOOD ORDERAB LES [facility] [address] [place] [address], [facility] [address] [place] [address] * (ABNORMAL) Lipid panel (07/31/2024 10:15 AM EDT) [facility] Triglycerides 53(L) 60 - 150 mg/dL 08/01/2024 12:14 AM EDT [facility] Comment: Optimal: ? <150 mg/dL Borderline high: ??150-199 mg/dL High: ? 200-499 mg/dL Very high: ?>/=500 mg/dL Cholesterol, Total 196 0 - 200 mg/dL 08/01/2024 12:14 AM EDT [facility] Comment: Optimal: ? <200 mg/dL Borderline high: 200-239 mg/dL High: ?>/=240 mg/dL LDL Chol, Calculated 135 SEE COMMENT mg/dL 08/01/2024 12:14 AM EDT [facility] Comment: Optimal: ? <100 mg/dL Above optimal: ?? 100-129 mg/dL Borderline high: 130-159 mg/dL High: ?160-189 mg/dL Very high: ? >/=190 mg/dL VLDL 11 5 - 30 mg/dL 08/01/2024 12:14 AM EDT [facility] HDL Cholesterol 50 40 - 60 mg/dL 08/01/2024 12:14 AM EDT [facility] Comment:Optimal: >60 mg/dL Non-HDL 146 SEE COMMENT mg/dL 08/01/2024 12:14 AM EDT [facility] Comment: Optimal: ? <130 mg/dL Above optimal: ?? 130-159 mg/dL Borderline high: 160-189 mg/dL High: ?190-219 mg/dL Very high: ? >/=220 mg/dL Blood Venipuncture / Unknown 07/31/2024 10:15 AM EDT 07/31/2024 11:28 PM EDT Comment:Add'l Desc: Be Reno DO LAB BLOOD ORDERAB LES Performing Organization Address [facility] Co de Phone Number [facility] [address] [place] [address], [facility] [address] [place] [address] * TSH (07/31/2024 10:15 AM EDT) TSH 2.010 0.340 - 4.820 uIU/ml 08/01/2024 12:14 AM EDT [facility] Blood Venipuncture / Unknown 07/31/2024 10:15 AM EDT 07/31/2024 11:28 PM EDT Comment:Add'l Desc: Be Reno DO LAB BLOOD ORDERAB LES Performing Organization Address City/[facility]/ZIP Co de Phone Number [facility] [address] [place] [address], [facility] [address] [place] [address] * (ABNORMAL) Comprehensive metabolic panel(CMP) (07/31/2024 10:15 AM EDT) [facility] Glucose 91 70 - 100 mg/dL 08/01/2024 12:14 AM EDT [facility] BUN 22(H) 6 - 20 08/01/2024 12:14 AM [facility] Creatinine 1.11 0.60 - 1.30 mg/dL 08/01/2024 12:14 AM [facility] Comment: Reference ranges by sex: MALE ?? 0.60 - 1.30 mg/dL FEMALE 0.50 - 1.00 mg/dL Published laboratory reference ranges are based on legal sex. Values should be interpreted in context of the patient's full clinical presentation. Sodium 140 135 - 145 mmol/L 08/01/2024 12:14 AM [facility] Potassium 4.3 3.2 - 4.9 mmol/L 08/01/2024 12:14 AM [facility] Chloride 104 95 - 110 mmol/L 08/01/2024 12:14 AM [facility] Carbon Dioxide 26 21 - 32 mmol/L 08/01/2024 12:14 AM [facility] Anion Gap 10 5 - 15 mmol/L 08/01/2024 12:14 AM [facility] Calcium 9.4 8.5 - 10.1 mg/dL 08/01/2024 12:14 AM [facility] Protein, Total 7.0 6.0 - 8.2 g/dL 08/01/2024 12:14 AM [facility] Albumin 4.5 3.5 - 5.2 g/dL 08/01[facility]24 [facility] Globulin 2.5(L) 2.7 - 4.2 g/dL 08/01[facility]2024 [facility] A/G Ratio 1.80 1.00 - 2.00 08/01/2024 12:[facility] AST (SGOT) 23 15 - 37 U/L 08/01/2024 12[facility] ALT (SGPT) 27 10 - 45 U/L 08/01/2024 12:14 AM T [facility] Comment: Reference ranges by sex: MALE ?10 - 45 ??U/L FEMALE ??10 - 35 ??U/L Published laboratory reference ranges are based on legal sex. Values should be interpreted in context of the patient's full clinical presentation. Please note that the reference range for this assay has been updated due to a change in methodology/instrumentation. Alkaline Phosphatase 70 40 - 129 U/L 08/01/2024 12:14 AM EDT [facility] Comment: Reference ranges by sex: MALE ?40 - 129 U/L FEMALE ??35 - 104 U/L Published laboratory reference ranges are based on legal sex. Values should be interpreted in context of the patient's full clinical presentation. Total Bilirubin 0.2 0.0 - 1.1 mg/dL 08/01/2024 12:14 AM EDT [facility] Blood Venipuncture / Unknown 07/31/2024 10:15 AM EDT 07/31/2024 11:28 PM EDT Comment:Add'l Desc: Be Reno DO LAB BLOOD ORDERAB LES [facility] [address] [place] [address], [facility] [address] [place] [address] * (ABNORMAL) CBC with Auto Differential (07/31/2024 10:15 AM EDT) WBC 5.34 4.50 - 11.00 /nL 07/31/2024 11:55 PM EDT [facility] RBC 5.38 4.20 - 5.70 /pL 07/31/2024 11:55 PM EDT [facility] Comment: Reference ranges by sex: MALE ?4.20 - 5.70 /pL FEMALE ??3.70 - 5.20 /pL Published laboratory reference ranges are based on legal sex. Values should be interpreted in context of the patient's full clinical presentation. Hemoglobin 14.6 14.0 - 17.0 g/dL 07/31/2024 11:55 PM EDT [facility] Comment: Reference ranges by sex: MALE ?14.0 - 17.0 g/dL FEMALE ??12.5 - 16.0 g/dL Published laboratory reference ranges are based on legal sex. Values should be interpreted in context of the patient's full clinical presentation. Hematocrit 46.5 39.0 - 50.0 % 07/31/2024 11:55 PM EDT [facility] Comment: Reference ranges by sex: MALE ?? 39.0 - 50.0 % FEMALE 37.0 - 45.0 % Published laboratory reference ranges are based on legal sex. Values should be interpreted in context of the patient's full clinical presentation. MCV 86.4 80.2 - 99.4 fL 07/31/2024 11:55 PM EDT [facility] MCH 27.1 27.0 - 33.0 pg 07/31/2024 11:[facility] MCHC 31.4(L) 32.0 - 36.0 g/dL 07/31/2024 11:55 [facility] Platelets 238 150 - 450 /nL 07/31/2024 11:55 [facility] RDW 14.6(H) 11.5 - 14.1 % 07/31/2024 11:55 PM [facility] MPV 9.9 9.0 - 13.0 fL 07/31/2024 11:55 [facility] Nucleated RBC,Absolute 0.00 0.00 - 0.00 /nL 07/31/2024 11:55 [facility] Nucleated RBCs % 0.0 0.0 - 0.0 /100{WBC} 07/31/2024 11:55 [facility] Neutrophils 51.3 40.0 - 80.0 % 07/31/2024 11:55 [facility] Lymphocytes 35.6 15.0 - 40.0 % 07/31/2024 11:55 [facility] Monocytes 7.3 4.0 - 12.0 % 07/31/2024 11:55 [facility] Eosinophils % Auto 4.7 0.0 - 8.0 % 07/31/2024 11:55 [facility] Basophils 0.9 0.0 - 2.0 % 07/31/2024 11:55 [facility] Neutrophils Absolute 2.74 2.00 - 6.60 /nL 07/31/2024 11:55 PM EDT [facility] Lymphocytes, Absolute 1.90 0.70 - 3.70 /nL 07/31/2024 11:55 PM EDT [facility] Monocytes Absolute 0.39 0.20 - 0.80 /nL 07/31/2024 11:55 PM EDT [facility] Eosinophils Absolute (Auto) 0.25(H) 0.00 - 0.20 /nL 07/31/2024 11:55 PM EDT [facility] Basophils Absolute 0.05 0.00 - 0.20 /nL 07/31/2024 11:55 PM EDT [facility] Immature Granulocytes ABS 0.01 0.00 - 0.05 /nL 07/31/2024 11:55 PM EDT [facility] Immature Granulocytes 0.2 0.0 - 0.7 % 07/31/2024 11:55 PM EDT [facility] Blood Venipuncture / Unknown 07/31/2024 10:15 AM EDT 07/31/2024 11:43 PM EDT Comment:Add'l Desc: Be Reno DO LAB BLOOD ORDERAB LES [facility] [address] [place] [address], [facility] [address] [place] [address] documented in this encounter Visit Diagnoses Diagnosis Well adult exam- Primary Routine general medical examination at a health care facility Needs flu shot Need for prophylactic vaccination and inoculation against influenza Prediabetes Other abnormal glucose Moderate persistent asthma, unspecified whether complicated (HCC) Class 1 obesity with serious comorbidity and body mass index (BMI) of 32.0 to 32.9 in adult, unspecified obesity type Need for COVID-19 vaccine Suspected sleep apnea Acute right-sided low back pain without sciatica documented in this encounter Care Teams Staff Trainer Relationship Specialty Start Date End Date Be Reno DO [address] [place] [id number] PCP - General Family Medicine 12/14/22 documented as of this encounter
--- OUTSIDE RECORDS SUMMARY | 2024-11-12 16:14 | XMS_ITS | Encounter Summary ---
Author Organization [facility] Address [address] [place] [address] Care Team Providers Care Staff Midwife Name Role Phone Be Reno DO Primary Care Provider [phone] Encounter Details Date Type Department Care Team (Latest Contact Info) Description 07/31/2024 10:14 AM EDT - 07/31/2024 11:59 PM EDT Hospital Encounter [facility] Services [address] [place] [address] Well adult exam [Z00.00]; Prediabetes [R73.03] Discharge Disposition: Home or Self Care Social History Tobacco Use Types Packs/Day Years Used Date Smoking Tobacco: Never Smokeless Tobacco: Never Alcohol Use Standard Drinks/Week Comments Not Currently 0 (1 standard drink = 0.6 oz pure alcohol) Social drinker less than 1-2 drinks monthly [facility] Utilities Answer Date Recorded In the past 12 months has [employer], gas, oil, or water [employer] threatened to shut off services in your [...] often do you attend chur ch or adventist services? Never 07/31/2024 Do you belong to any clubs o r organizations such as rastafarian groups, unions, fraternal or athletic groups, or [...] Date Recorded PHQ-2 Total Score 0 07/28/2024 [facility] - Occupational Stress Questionnaire Answer Date Recorded [...] place to sleep or slept in a usp (including now)? No 07/31/2024 Sex and Gender Information Value Date Recorded Sex Assigned at Male 02/01/2024 1:22 PM EDT Gender Identity Male 02/01/2024 1:22 PM EDT Sexual Orientation Straight 04/22/2024 10 :53 AM EDT documented as of this encounter Medications at Time of Discharge Medication Sig Dispensed Refills Start Date End Date albuterol sulfate (PROAIR RESPICLICK) 90 mcg/actuation powder inhalerIndications:Modera te persistent asthma, unspecified whether complicated (HCC) Inhale 1 puff every 6 hours as needed 1 each 3 05/20/2024 fexofenadine HCl (JAKE ORAL) Take by mouth meloxicam (MOBIC) 15 mg tabletIndications:Acute right-sided low back pain without sciatica Take 1 tablet (15 mg total) by mouth daily 30 tablet 07/31/2024 documented as of this encounter Plan of Treatment Not on file documented as of this encounter Procedures Procedure Name Priority Date/Time Associated Diagnosis Comments GLOMERULAR FILTRATION RATE, ESTIMATED (EGFR) Routine 08/01/2024 12:14 AM EDT CBC W/ AUTO DIFFERENTIAL Routine 07/31/2024 10:15 AM EDT Well adult exam TSH Routine 07/31/2024 10:15 AM EDT Well adult exam HEMOGLOBIN A1C Routine 07/31/2024 10:15 AM EDT Well adult exam Prediabetes LIPID PANEL Routine 07/31/2024 10:15 AM EDT Well adult exam COMPREHENSIVE METABOLIC PANEL Routine 07/31/2024 10:15 AM EDT Well adult exam documented in this encounter Results * Glomerular Filtration Rate, Estimated (08/01/2024 12:14 AM EDT) eGFR 90 mL/min/1. 73m2 08/01/2024 12:14 AM EDT [facility] Comment: Estimated glomerular filtration rate (eGFR) is calculated using the CKD-EPI (2020) equation having no race coefficient. Values should be interpreted in the context of the patient's full clinical presentation. Reference: Laura Aaron et al Am J Kidney Dis.(2020) 78(1):103-115. The calculation does not apply to acutely ill or hospitalized patients and should NOT be used for calculation of drug dosages. The eGFR is merely an estimate and is NOT equivalent to the creatinine clearance. 08/01/2024 12:1 4 AM EDT Comment:Add'l Desc: Be Reno DO LAB BLOOD ORDERAB LES [facility] [address] [place] [address], [facility] [address] [place] [address] * Hemoglobin A1c (07/31/2024 10:15 AM EDT) Glycohemoglobin A1C 5.5 4.0 - 5.6 % 08/01/2024 12:06 AM EDT [facility] Comment: Interpretive information based on Diagnosis and Classification of Diabetes Mellitus, [place] [employer]. < 4.0: Falsely low HbA1c [...] Be Reno DO LAB BLOOD ORDERAB LES [facility] [address] [place] [address], [facility] [address] [place] [address] * (ABNORMAL) Lipid panel (07/31/2024 10:15 AM EDT) Triglycerides 53(L) 60 - 150 mg/dL 08/01/2024 12:14 AM [facility] Comment: Optimal: ? <150 mg/dL Borderline high: ??150-199 mg/dL High: ? 200-499 mg/dL Very high: ?>/=500 mg/dL Cholesterol, Total 196 0 - 200 mg/dL 08/01/2024 12:14 AM T [facility] Comment: Optimal: ? <200 mg/dL Borderline high: 200-239 mg/dL High: ?>/=240 mg/dL LDL Chol, Calculated 135 SEE COMMENT mg/dL 08/01/2024 12:14 AM [facility] Comment: Optimal: ? <100 mg/dL Above optimal: ?? 100-129 mg/dL Borderline high: 130-159 mg/dL High: ?160-189 mg/dL Very high: ? >/=190 mg/dL VLDL 11 5 - 30 mg/dL 08/01/2024 12:14 AM [facility] HDL Cholesterol 50 40 - 60 mg/dL 08/01/2024 12:14 AM [facility] Comment:Optimal: >60 mg/dL Non-HDL 146 SEE COMMENT mg/dL 08/01/2024 12:14 AM [facility] Comment: Optimal: ? <130 mg/dL Above optimal: ?? 130-159 mg/dL Borderline high: 160-189 mg/dL High: ?190-219 mg/dL Very high: ? >/=220 mg/dL Blood Venipuncture / Unknown 07/31/2024 10:15 AM EDT 07/31/2024 11:28 PM EDT Comment:Add'l Desc: Be Reno DO LAB BLOOD ORDERAB LES Performing Organization Address City/[facility]/ZIP Co de Phone Number [facility] [address] [place] [address], [facility] [address] [place] [address] * TSH (07/31/2024 10:15 AM EDT) TSH 2.010 0.340 - 4.820 uIU/ml 08/01/2024 12:14 AM EDT [facility] Blood Venipuncture / Unknown 07/31/2024 10:15 AM EDT 07/31/2024 11:28 PM EDT Comment:Add'l Desc: Be Reno DO LAB BLOOD ORDERAB LES Performing Organization Address [facility] Co de Phone Number [facility] [address] [place] [address], [facility] [address] [place] [address] * (ABNORMAL) Comprehensive metabolic panel(CMP) (07/31/2024 10:15 AM EDT) Glucose 91 70 - 100 mg/dL 08/01/2024 12:14 AM EDT [facility] BUN 22(H) 6 - 20 08/01/2024 12:14 AM EDT [facility] Creatinine 1.11 0.60 - 1.30 mg/dL 08/01/2024 12:14 AM EDT [facility] Comment: Reference ranges by sex: MALE ?? 0.60 - 1.30 mg/dL FEMALE 0.50 - 1.00 mg/dL Published laboratory reference ranges are based on legal sex. Values should be interpreted in context of the patient's full clinical presentation. Sodium 140 135 - 145 mmol/L 08/01/2024 12:14 AM EDT [facility] Potassium 4.3 3.2 - 4.9 mmol/L 08/01/2024 12:14 AM EDT [facility] Chloride 104 95 - 110 mmol/L 08/01/2024 12:14 AM EDT [facility] Carbon Dioxide 26 21 - 32 mmol/L 08/01/2024 12:14 AM EDT [facility] Anion Gap 10 5 - 15 mmol/L 08/[facility]2024 [facility] Calcium 9.4 8.5 - 10.1 mg/dL 08/01/2024 12:14 AM [facility] Protein, Total 7.0 6.0 - 8.2 g/dL 08/01/2024 12:14 AM [facility] Albumin 4.5 3.5 - 5.2 g/dL 08/01/2024 12:[facility] Globulin 2.5(L) 2.7 - 4.2 g/dL 08/01/2024 12:14 AM [facility] A/G Ratio 1.80 1.00 - 2.00 08/01/2024 12:14 AM [facility] AST (SGOT) 23 15 - 37 U/L 08/01/2024 12:14 AM [facility] ALT (SGPT) 27 10 - 45 U/L 08/01/2024 12:14 AM T [facility] Comment: Reference ranges by sex: MALE [...] 40 - 129 U/L 08/01/2024 12:14 AM [facility] Comment: Reference ranges by sex: MALE ?40 - 129 U/L FEMALE ??35 - 104 U/L Published laboratory reference ranges are based on legal sex. Values should be interpreted in context of the patient's full clinical presentation. Total Bilirubin 0.2 0.0 - 1.1 mg/dL 08/01/2024 12:14 AM EDT [facility] Blood Venipuncture / Unknown 07/31/2024 10:15 AM EDT 07/31/2024 11:28 PM EDT Comment:Add'l Desc: Be Reno DO LAB BLOOD ORDERAB LES [facility] [address] [place] [address], [facility] [address] [place] [address] * (ABNORMAL) CBC with Auto Differential (07/31/2024 10:15 AM EDT) WBC 5.34 4.50 - 11.00 /nL 07/31/2024 11:55 PM EDT [facility] RBC 5.38 4.20 - 5.70 /pL 07/31/2024 11:55 PM EDT [facility] Comment: Reference ranges by sex: MALE ?4.20 - 5.70 /pL FEMALE ??3.70 - 5.20 /pL Published laboratory reference ranges are based on legal sex. Values should be interpreted in context of the patient's full clinical presentation. Hemoglobin 14.6 14.0 - 17.0 g/dL 07/31/2024 11:55 PM EDT [facility] Comment: Reference ranges by sex: MALE ?14.0 - 17.0 g/dL FEMALE ??12.5 - 16.0 g/dL Published laboratory reference ranges are based on legal sex. Values should be interpreted in context of the patient's full clinical presentation. Hematocrit 46.5 39.0 - 50.0 % 07/31/2024 11:55 PM EDT [facility] Comment: Reference ranges by sex: MALE ?? 39.0 - 50.0 % FEMALE 37.0 - 45.0 % Published laboratory reference ranges are based on legal sex. Values should be interpreted in context of the patient's full clinical presentation. MCV 86.4 80.2 - 99.4 fL 07/31/2024 11:55 PM EDT [facility] MCH 27.1 27.0 - 33.0 pg 07/31/2024 11:55 PM [facility] MCHC 31.4(L) 32.0 - 36.0 g/dL 07/31/2024 11:55 PM [facility] Platelets 238 150 - 450 /nL 07/31/2024 11:55 PM [facility] RDW 14.6(H) 11.5 - 14.1 % 07/31/2024 11:55 PM [facility] MPV 9.9 9.0 - 13.0 fL 07/31/2024 11:55 PM [facility] Nucleated RBC,Absolute 0.00 0.00 - 0.00 /nL 07/31/2024 11:55 PM [facility] Nucleated RBCs % 0.0 0.0 - 0.0 /100{WBC} 07/31/2024 11:55 PM [facility] Neutrophils 51.3 40.0 - 80.0 % 07/31/2024 11:55 PM [facility] Lymphocytes 35.6 15.0 - 40.0 % 07/31/2024 11:55 PM [facility] Monocytes 7.3 4.0 - 12.0 % 07/31/2024 11:55 PM [facility] Eosinophils % Auto 4.7 0.0 - 8.0 % 07/31/2024 11:55 PM [facility] Basophils 0.9 0.0 - 2.0 % 07/31/2024 11:55 PM [facility] Neutrophils Absolute 2.74 2.00 - 6.60 /nL 07/31/2024 11:55 PM [facility] Lymphocytes, Absolute 1.90 0.70 - 3.70 /nL 07/31/2024 11:55 PM [facility] Monocytes Absolute 0.39 0.20 - 0.80 /nL 07/31/2024 11:55 PM [facility] Eosinophils Absolute (Auto) 0.25(H) 0.00 - 0.20 /nL 07/31/2024 11:55 PM [facility] Basophils Absolute 0.05 0.00 - 0.20 /nL 07/31/2024 11:55 PM EDT [facility] Immature Granulocytes ABS 0.01 0.00 - 0.05 /nL 07/31/2024 11:55 PM EDT [facility] Immature Granulocytes 0.2 0.0 - 0.7 % 07/31/2024 11:55 PM EDT [facility] Blood Venipuncture / Unknown 07/31/2024 10:15 AM EDT 07/31/2024 11:43 PM EDT Comment:Add'l Desc: Be Reno DO LAB BLOOD ORDERAB LES [facility] [address] [place] [address], [facility] [address] [place] [address] documented in this encounter Visit Diagnoses Diagnosis Well adult exam Routine general medical examination at a health care facility Prediabetes Other abnormal glucose documented in this encounter Care Teams Staff Midwife Relationship Specialty Start Date End Date Be Reno DO [address] [place] [address] PCP - General Family Medicine 12/14/22 documented as of this encounter
--- OUTSIDE RECORDS SUMMARY | 2024-11-12 16:14 | XMS_ITS | Encounter Summary ---
Author Organization [facility] Address [address] [place] [address] Care Team Providers Care Hothouse Worker Name Role Phone Be Reno DO Primary Care Provider [phone] Encounter Details Date Type Department Care Team (Late st Contact Info) Description 05/06/2024 Transcribe Orders [facility] Services [address] [place] [address] Be Reno DO [address] [place], [place] [address] Social History Tobacco Use Types Packs/Day Years [...] and Family Not on file 04/22/2024 Attends Baptism Services Not on file 04/22 Active Member [...] documented as of this encounter Visit Diagnoses Not on filedocumented in this encounter Care Teams Hothouse Worker Relationship Specialty Start Date End Date Be Reno DO [address] [place] [address] PCP - General Family Medicine 12/14/22 documented as of this encounter
--- OUTSIDE RECORDS SUMMARY | 2024-11-12 16:15 | XMS_ITS | Encounter Summary ---
Author Organization [facility] Address [address] [place] [address] Phone Care Team Providers Care Window Caser Name Role Phone Stephanie Mccabe MD Primary Care Provider Unavailabl e Encounter Details Date Type Department Care Team (Latest Contact Info) Description 07/01/2021 Travel Social History Tobacco Use Types Packs/Day Years Used Date Smoking Tobacco: Never Smokeless Tobacco: Never Alcohol Use Standard Drinks/Week Comments Never 0 (1 standard drink = 0.6 oz pur e alcohol) Sex and Gender Information Value Date Recorded Sex Assigned at Not on file Legal Sex Male 9:09 PM EDT Gender Identity Not on file Sexual Orientation Not on file COVID-19 Exposure Response Date Recorded In the last month, have you been in contact with someone who was confirmed or suspected to have Coronavirus / COVID-19? No / Unsure 07/01/2021 5:12 PM EDT documented as of this encounter Plan of Treatment Not on file documented as of this encounter Visit Diagnoses Not on filedocumented in this encounter Care Teams Window Caser Relationship Specialty Start Date End Date Stephanie Mccabe MD PCP - General 04/06/21 documented as of this encounter
--- OUTSIDE RECORDS SUMMARY | 2024-11-12 16:15 | XMS_ITS | Encounter Summary ---
Author Organization [facility] Address [address] [place] [address] Care Team Providers Care Lithographic Plate Maker Name Role Phone Be Reno DO Primary Care Provider [phone] Encounter Details Date Type Department Care Team (Latest Contact Info) Description 12/14/2022 9:59 AM EST - 12/15/2022 11:59 PM EST Hospital Encounter [facility] Services [address] [place] [address] Discharge Disposition: Home or Self Care Social History Tobacco Use Types Packs/Day Years Used Date Smoking Tobacco: Never Smokeless Tobacco: Never Alcohol Use Standard Drinks/Week Comments Yes 0 (1 standard drink = 0.6 oz pur e alcohol) socially Humiliation, Afraid, Rape, and Kick questionnair e Answer Date Recorded Within the last year, have y ou been afraid of your partner or ex-partner? No 12/14/2022 Emotionally Abused Not on file 12/14/2022 Physically Abused Not on file 12/14/2022 Sexually Abused Not on file 12/14/2022 Social Connection and Isolat ion Panel [NHANES] Answer Date Recorded In a typical week, how many times do you talk on the phone with family, friends, or neighbors? More than three times a week 12/14/2022 Frequency of Social Gatherin gs with Friends and Family Not on file 12/14/2022 Attends Confucianist Services Not on file 12/14 Active Member of Clubs or Organizations Not on f ile 12/14/2022 Attends Club or Organization Meetings Not on luis felipe e 12/14/2022 Marital Status Not on file 12/14/2022 Overall Financial Resource Strain (CARDIA) Answe r Date Recorded How hard is it for you to pa y for the very basics like food, housing, medical care, and heating? Not hard at all 12/14/2022 Hunger Vital Sign Answer Date Recorded Within the past 12 months, y ou worried that your food would run out before you got the money to buy more. Never true 12/14/19 23 Ran Out of Food in the Last Year Not on file 12/14/2022 PRAPARE - Transportation Answer Date Re corded In the past 12 months, has l ack of transportation kept you from medical appointments or from getting medications? No 12/14/2022 Lack of Transportation (Non-Medical) Not on file 12/14/2022 Housing Stability Vital Sign Answer Jose e Recorded In the last 12 months, was t here a time when you were not able to pay the mortgage or rent on time? No 12/14/2022 Number of Places Lived in the Last Year Not on f ile 12/14/2022 Unstable Housing in the Last Year Not on file 12/14/2022 Sex and Gender Information Value Date Recorded Sex Assigned at Male 02/01/2024 1:22 PM EDT Gender Identity Male 02/01/2024 1:22 PM EDT Sexual Orientation Straight 04/22/2024 10 :53 AM EDT documented as of this encounter Medications at Time of Discharge Medication Sig Dispensed Refills Start Date End Date albuterol sulfate (PROAIR RESPICLICK) 90 mcg/actuation powder inhaler albuterol sulfate 01/04/2023 fluticasone propion-salmeteroL 100-50 mcg/puff inhaler Advair Diskus 100 mcg-50 mcg/dose powder for inhalation Inhale 1 puff twice a day by inhalation route for 14 days. 01/04/2023 documented as of this encounter Plan of Treatment Not on file documented as of this encounter Visit Diagnoses Not on filedocumented in this encounter Care Teams Lithographic Plate Maker Relationship Specialty Start Date End Date Be Reno DO [address] [place] [id number] PCP - General Family Medicine 12/14/22 documented as of this encounter
--- OUTSIDE RECORDS SUMMARY | 2024-11-12 16:15 | XMS_ITS | Clinical Summary ---
Author Organization [facility] Address [address] [place] [address] Phone Care Team Providers Care Boiler Room Helper Name Role Phone Pcp, Stephanie RODRIGUEZ Primary Care Provider Unavailabl e Medications albuterol (Proventil;Ventoli n) 90 mcg/actuation inhaler 01/12/2021 Active Active Problems No known active problems Social History Tobacco Use Types Packs/Day Years Used Date Smoking Tobacco: Never Smokeless Tobacco: Never Alcohol Use Standard Drinks/Week Comments Never 0 (1 standard drink = 0.6 oz pur e alcohol) Sex and Gender Information Value Date Recorded Sex Assigned at Not on file Legal Sex Male 9:09 PM EDT Gender Identity Not on file Sexual Orientation Not on file Last Filed Vital Signs Vital Sign Reading Time Taken Comments Blood Pressure - - Pulse - - Temperature - - Respiratory Rate - - Oxygen Saturation - - Inhaled Oxygen Concentration - - Weight 99.8 kg (220 lb) 04/06/2021 9:30 AM EDT Height 170.2 cm (5' 7 ) 04/06/2021 9:30 AM EDT Body Mass Index 34.46 04/06/2021 9:30 AM EDT Plan of Treatment Health Maintenance Due Date Last Done Comments Covid-19 Vaccine (2023-2 5 season) 2024 HPV Vaccines Aged Out No longer eligi ble based on patient's age to complete this topic Insurance [facility] Care Teams Boiler Room Helper Relationship Specialty Start Date End Date Stephanie Mccabe MD PCP - General 04/06/21
--- OUTSIDE RECORDS SUMMARY | 2024-11-12 16:15 | XMS_ITS | Encounter Summary ---
Author Organization [facility] Address [address] [facility] [address] [place] [address] Phone Care Team Providers Care Patient Experience Coordinator Name Role Phone Pcp, Stephanie RODRIGUEZ Primary Care Provider Unavailabl e Reason for Referral * Other Medical (Routine) - Closed Specialty Diagnoses / Procedures Referred By Christiane soto Referred To Contact Urology Diagnoses Vasectomy evaluation Procedures Vasectomy Augie Snowden MD [address] [address] Phone: tel: fax: [facility] [address] [facility] [address] [place] [address] Phone: tel: fax: Referral ID Status Reason Start Date Expiration Date Visits Re quested Visits Authorized [id number] Closed 04/06/2021 10/03/2021 1 1 Reason for Visit * Reason Comments Sterilization Advice Only Encounter Details Date Type Department Care Team (Late st Contact Info) Description 04/06/2021 9:30 AM EDT Office Visit [facility] [address] [facility] [address] [place] [address] Augie Snowden MD [address] [facility] [address] [place] [phone] Vasectomy evaluation (Primary Dx) Social History Tobacco Use Types Packs/Day Years [...] have Coronavirus / COVID-19? No / Unsure 04/06/2021 9:19 AM EDT documented as of this encounter [...] Mass Index 34.46 04/06/2021 9:30 AM EDT documented in this encounter Progress Notes * Pam Hughes MA - 04/06/2021 9:30 AM EDT Images from the original note were not included. Patient ID: Augustus Heaton is a 31 y.o. male with a of 1990. HPI 04/06/21 Patient in office for Vasectomy consult Ignacia 2 yo son and a step son. PSH: none Current Outpatient Medications: ??? albuterol (Proventil;Ventolin) 90 mcg/actuation inhaler, , Disp: , Rfl: All: none. Ocupation Veterinarean. The procedure was reviewed with the patient in detail. Risks, benefits and alternatives were discussed. A handout regarding the procedure was provided to the patient. Review of Systems Constitutional: Negative for chills and fever. HENT: Negative for congestion and sore throat. Respiratory: Negative for cough and shortness of breath. Gastrointestinal: Negative for diarrhea, nausea and vomiting. Genitourinary: PER HPI Musculoskeletal: Negative for back pain and neck pain. Neurological: Negative for dizziness and headaches. Psychiatric/Behavioral: Negative for agitation and confusion. Objective There were no vitals taken for this visit. Physical Exam Vitals reviewed. Constitutional: General: He is awake. Appearance: Normal appearance. Pulmonary: Effort: Pulmonary effort is normal. No respiratory distress. Abdominal: General: There is no distension. Palpations: Abdomen is soft. Tenderness: There is no abdominal tenderness. Genitourinary: Penis: Normal. Testes Right: normal Left: normal testes normal Prostate: Normal. Neurological: Mental Status: He is alert. Mental status is at baseline. Psychiatric: Mood and Affect: Mood normal. Behavior: Behavior normal. Point of care testing today: Laboratory Review: Radiology Review: Assessment/Plan Problem List Items Addressed This Visit None Augie Snowden MD Cosigned by Augie Snowden MD at 04/06/2021 5:17 PM EDT documented in this encounter Plan of Treatment Not on file documented as of this encounter Results * Vasectomy (07/05/2021 3:20 PM EDT) Augie Snowden MD PROCEDURE ORDERABLES Final Re sult documented in this encounter Visit Diagnoses Diagnosis Vasectomy evaluation- Primary Other general counseling and advice for contraceptive management documented in this encounter Care Teams Patient Experience Coordinator Relationship Specialty Start Date End Date Stephanie Mccabe MD PCP - General 04/06/21 documented as of this encounter
--- OUTSIDE RECORDS SUMMARY | 2024-11-12 16:15 | XMS_ITS | Encounter Summary ---
Author Organization [facility] Address [address] [place] [address] Phone Care Team Providers Care Experimental Preflight Mechanic Name Role Phone Stephanie Mccabe MD Primary Care Provider Unavailabl e Encounter Details Date Type Department Care Team (Latest Contact Info) Description 04/06/2021 Travel Social History Tobacco Use Types Packs/Day [...] on filedocumented in this encounter Care Teams Experimental Preflight Mechanic Relationship Specialty Start Date End Date Stephanie Mccabe MD PCP - General 04/06/21 documented as of this encounter
--- OUTSIDE RECORDS SUMMARY | 2024-11-12 16:15 | XMS_ITS | Encounter Summary ---
Author Organization [facility] Address [address] [place] [address] Care Team Providers Care System Support Analyst Name Role Phone Be Reno DO Primary Care Provider [phone] Reason for Visit * Reason Comments New Patient Pt presents to offic e to establish a new PCP. Annual Exam Pt presents to offic e for annual exam. He is fasting for labwork. He would like to have rabies panel added on. Immunizations Pt presents to offic e for influenza vaccine. Encounter Details Date Type Department Care Team (Late st Contact Info) Description 12/14/2022 9:00 AM EST Office Visit [facility] [address], [place] [id number] Be Reno DO [address] [place] [address] Well adult exam (Primary Dx) [Z00.00]; Need for influenza vaccination [Z23]; Fatigue, unspecified type [R53.83]; Hair loss [L65.9]; Family history of diabetes mellitus [Z83.3]; Contact with or exposure to rabies [Z20.3]; Need for hepatitis C screening test [Z11.59] Social History Tobacco Use Types Packs/Day Years Used Date Smoking Tobacco: Never Smokeless Tobacco: Never Tobacco Cessation:Counseling Given: Not Answered Alcohol Use Standard Drinks/Week Comments Yes 0 [...] and Family Not on file 12/14/2022 Attends Shinto Services Not on file 12/14 Active Member [...] Sign Reading Time Taken Comments Blood Pressure 102/60 12/14/2022 9:10 AM EST Pulse 72 12/14/2022 9:10 AM EST Temperature 36.4 ??C (97.6 ??F) 12/14/2022 9:10 AM ES T Respiratory Rate - - Oxygen Saturation 98% 12/14/2022 9:10 AM EST Inhaled Oxygen Concentration - - Weight 98.9 kg (218 lb) 12/14/2022 9:10 AM EST Height 174 cm (5' 8.5 ) 12/14/2022 9:10 AM EST Body Mass Index 32.66 12/14/2022 9:10 AM EST documented in this encounter Progress Notes * Be Reno, DO - 12/14/2022 9:00 AM EST Augustus Heaton is a 32 y.o. male who presents with Chief Complaint Patient presents with ??? New Patient Pt presents to office to establish a new PCP. ??? Annual Exam Pt presents to office for annual exam. He is fasting for labwork. He would like to have rabies panel added on. ??? Immunizations Pt presents to office for influenza vaccine. Augustus is a pleasant 32 yo male who presents to the office today to establish care and have a routine annual physical. He is currently fasting for lab work and would like to receive his flu vaccine next week since [facility] 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 Additionally,he reports decreased energy and hair loss/thinning - would like to make sure testosterone levels are age appropriate and not contributing to theses symptoms. New Patient Pertinent negatives include no abdominal pain, arthralgias, chest pain, chills, congestion, coughing, diaphoresis, fatigue, fever, headaches, joint swelling, myalgias, nausea, numbness, rash, sore throat, vomiting or weakness. Annual Exam Pertinent negatives include no abdominal pain, arthralgias, chest pain, chills, congestion, coughing, diaphoresis, fatigue, fever, headaches, joint swelling, myalgias, nausea, numbness, rash, sore throat, vomiting or weakness. Past Medical History: Diagnosis Date ??? Asthma Past Surgical History: Procedure Laterality Date ??? VASECTOMY 2020 Current Outpatient Medications: ??? albuterol sulfate (PROAIR RESPICLICK) 90 mcg/actuation powder inhaler, albuterol sulfate, Disp:, Rfl: ??? fluticasone propion-salmeteroL 100-50 mcg/puff inhaler, Advair Diskus 100 mcg-50 mcg/dose powder for inhalation Inhale 1 puff twice a day by inhalation route for 14 days., Disp: , Rfl: Allergies Allergen Reactions ??? Pollen Extracts Family History Problem Relation Age of Onset ??? No Known Problems Mother ??? Other (prediabetes) Father ??? Asthma Sister ??? Diabetes Maternal Grandmother ??? No Known Problems Maternal Grandfather ??? No Known Problems Paternal Grandfather ??? No Known Problems Son Social History Socioeconomic History ??? Marital status: Unknown ??? Number of children: 2 Occupational History ??? 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 Smoking status: Never ??? Smokeless tobacco: Never Vaping Use ??? Vaping Use: Never used Substance and Sexual Activity ??? Alcohol use: Yes Comment: socially ??? Drug use: Never ??? Sexual activity: Yes Partners: Female control/protection: Surgical Comment: vasectomy Social History Narrative Diet: no [...] for Housing in the Last Year: No Depression Screening Review of Systems Constitutional: Negative for appetite [...] scrotal swelling, testicular pain and urgency. Musculoskeletal: Negative for arthralgias, gait problem, joint swelling and myalgias. Skin: Negative for color change, pallor and rash. Neurological: Negative for dizziness, syncope, speech difficulty, weakness, numbness and headaches. Hematological: Negative for adenopathy. Does not bruise/bleed easily. Psychiatric/Behavioral: Negative for confusion, dysphoric mood and sleep disturbance. The patient is not nervous/anxious. BP 102/60 Pulse 72 Temp 36.4 ??C (97.6 ??F) (Temporal) Ht 174 cm (68.5 ) Wt 98.9 kg (218 lb) SpO2 98% BMI 32.66 kg/m?? Physical Exam Vitals reviewed. Constitutional: Appearance: Normal appearance. HENT: Head: Normocephalic and atraumatic. Right Ear: Tympanic membrane normal. Left Ear: Tympanic membrane normal. Nose: Nose normal. Mouth/Throat: Mouth: Mucous membranes are moist. Pharynx: Oropharynx is clear. Eyes: Extraocular Movements: Extraocular movements intact. Pupils: Pupils are equal, round, and reactive to light. Cardiovascular: Rate and Rhythm: Normal rate and regular rhythm. Pulses: Normal pulses. Heart sounds: Normal heart sounds. Pulmonary: Effort: Pulmonary effort is normal. No respiratory distress. Breath sounds: Normal breath sounds. No wheezing. Abdominal: General: Bowel sounds are normal. Palpations: Abdomen is soft. Tenderness: There is no guarding or rebound. Musculoskeletal: General: No swelling or tenderness. Normal range of motion. Cervical back: Normal [...] Behavior normal. Immunization History Administered Date(s) Administered ??? Influenza (6 Months Up) (PF) Quadrivalent IM 11/03/2021 ??? SARS-COV-2 (COVID-19/PFIZER) mRNA [id number] (PF) IM (LNP-S) EUA (purple) 02/04/2021, 02/25/2021,11/03/2021 Health Maintenance Due Topic Date Due ??? HEPATITIS C SCREENING Never done ??? COVID VACCINE (4 - Booster for Pfizer series) 12/29/2021 ??? INFLUENZA VACCINE 06/12/2022 Augustus was seen today for new patient, annual exam and immunizations. Diagnoses and all orders for this visit: Well adult exam - CBC with Auto Differential; Future - Comprehensive metabolic panel(CMP); Future - TSH; Future - Lipid panel; Future - Hemoglobin A1c; Future - Testosterone, free, total; Future - CBC with Auto Differential - Comprehensive metabolic panel(CMP) - TSH - Lipid panel - Hemoglobin A1c - Testosterone, free, total Need for influenza vaccination - Cancel: INFLUENZA (18 YEARS UP) QUADRIVALENT IM (RECOMBINANT) - INFLUENZA (18 YEARS UP) QUADRIVALENT IM (RECOMBINANT); Future Fatigue, unspecified type - TSH; Future - Hemoglobin A1c; Future - Testosterone, free, total; Future - TSH - Hemoglobin A1c - Testosterone, free, total Hair loss - TSH; Future - Testosterone, free, total; Future - TSH - Testosterone, free, total Family history of diabetes mellitus - Hemoglobin A1c; Future - Hemoglobin A1c Contact with or exposure to rabies - Rabies Vaccine Resp titer RFFIT; Future - Rabies Vaccine Resp titer RFFIT Need for hepatitis C screening test - Hepatitis C Virus (HCV) Antibody With Reflex to Quantitative Real-time PCR; Future - Hepatitis C Virus (HCV) Antibody With Reflex to Quantitative Real-time PCR - CPE / fasting blood-work - preventive counseling offered and discussed - discussed dietary and lifestyle modifications - does follow dentist for routine dental care - does follow engineering design supervisor for routine visual screening - does not follow senior it specialist for routine skin ca screening - Per orders. Counseling for all components completed. Return in about 1 year (around 12/14/2023) for Annual physical. Be Reno DO documented in this encounter Plan of Treatment Not on file documented as of this encounter Procedures Procedure Name Priority Date/Time Associated Diagnosis Comments RABIES NEUT.ABS TITRAT.(RFFIT) Routine 12/14/2022 9:57 AM EST Contact with or exposure to rabies CARDIOVASCULAR RISK ASSESSMENT Routine 12/14/2022 9:57 AM EST CBC W/ AUTO DIFFERENTIAL Routine 12/14/2022 9:57 AM EST Well adult exam TESTOSTERONE, FREE, TOTAL Routine 12/14/2022 9:57 AM EST Well adult exam Fatigue, unspecified type Hair loss TSH Routine 12/14/2022 9:57 AM EST Well adult exam Fatigue, unspecified type Hair loss HEMOGLOBIN A1C Routine 12/14/2022 9:57 AM EST Well adult exam Fatigue, unspecified type Family history of diabetes mellitus LIPID PANEL Routine 12/14/2022 9:57 AM EST Well adult exam COMPREHENSIVE METABOLIC PANEL Routine 12/14/2022 9:57 AM EST Well adult exam documented in this encounter Results * CARDIOVASCULAR RISK ASSESSMENT (12/14/2022 9:57 AM EST) INTERPRETATION Note [facility] 2 Comment: CARDIOVASCULAR REPORT: Current available clinical information suggests the patient's risk is at least LOW. If the patient has two or more major risk factors, the risk category is intermediate. If the patient has CHD or a CHD risk equivalent, the risk category is high. If patient does not have CHD or a CHD risk equivalent, consider use of the Pooled Cohort Equations to estimate 10-year CVD risk, as individuals with greater than 7.5% risk may warrant more intensive therapy. The calculator can be found at: http://tools.cardiosource.org/KAEFT-Brzy-Bikuccafd/ - Insulin resistance, obesity, excessive alcohol use, smoking, nephrotic syndrome, liver disease, and certain medications can cause secondary dyslipidemia. Consider evaluation if clinically indicated. - Therapeutic lifestyle changes are always valuable to achieve optimal blood lipid status (diet, exercise, weight management). LIPID MANAGEMENT Select one patient risk category based upon medical history and clinical judgment. Additional risk factors such as personal or family history of premature CHD, smoking, and hypertension modify a patient's goals of therapy. In CVD prevention, the intensity of therapy should be adjusted to the level of patient risk. MODERATE intensity statin therapy generally results in an average LDL-C reduction of 30% to less than 50% from the untreated baseline. Examples include (daily doses): atorvastatin 10-20 mg, rosuvastatin 5-10 mg, simvastatin 20-40 mg, pravastatin 40-80 mg, lovastatin 40 mg. HIGH intensity statin therapy generally results in an average LDL-C reduction of 50% or more from the untreated baseline. Examples include (daily doses): atorvastatin 40-80 mg and rosuvastatin 20 mg. LOW RISK ASSESSMENT AND TREATMENT SUGGESTIONS LDL-C is acceptable, 134 mg/dL. Non-HDL Cholesterol is acceptable, 148 mg/dL. - Considerations for use of statin therapy include family history of premature atherosclerotic disease, elevated coronary artery calcium score, ankle-brachial index < 0.9, elevated CRP, or elevated lifetime CVD risk. INTERMEDIATE RISK ASSESSMENT AND TREATMENT SUGGESTIONS LDL-C is borderline high, 134 mg/dL. Non-HDL Cholesterol is acceptable, 148 mg/dL. - Consider beginning or increasing statin. Factors that may influence statin use include family history of premature atherosclerotic disease, elevated coronary artery calcium score, ankle-brachial index < 0.9, elevated CRP, or elevated lifetime CVD risk. If statin cannot be tolerated or increased, alternatives include use of an intestinal agent (ezetimibe or bile acid sequestrant) or niacin. HIGH RISK ASSESSMENT AND TREATMENT SUGGESTIONS LDL-C is high, 134 mg/dL. Non-HDL Cholesterol is borderline high, 148 mg/dL. - Begin statin. If statin already in use, consider increasing dose to achieve at least a 50% LDL reduction from baseline. Moderate or high intensity statin is preferred. If statin cannot be tolerated or increased, alternatives include use of an intestinal agent (ezetimibe or bile acid sequestrant) or niacin. DISCLAIMER These assessments and treatment suggestions are provided as a convenience in support of the physician-patient relationship and are not intended to replace the physician's clinical judgment. They are derived from national guidelines in addition to other evidence and expert opinion. The clinician should consider this information within the context of clinical opinion and the individual patient. SEE GUIDANCE FOR CARDIOVASCULAR REPORT: Shama SM et al. 2018 Multisociety guideline on the management of blood cholesterol: a report of the [place] College of Cardiology/Bel[place] Heart Association Task Force on Clinical Practice Guidelines. J Am Damari Cardiol 2019; 73: r206-289; Contois et al. Clin Chem 2009; 55(3):407-419; Brunzell et al. Diabetes Care 2008; 31(4):811-82. 12/14/2022 9:57 AM EST 12/15/2022 Narrative [facility] - 12/28/2022 3:05 PM EST Performed at: ??02 - [facility] [address] [place] [address] [address] [place], [place] ??[id number] Staff Development Educator: Sourav Galan PhD, Phone: ??[phone] Be Phamchungcassiecruz DO [facility] PROBLEM C ODES [facility] 2 * Rabies Vaccine Resp titer RFFIT (12/14/2022 9:57 AM EST) Rabies Neut. AB Titration >/=0.5 IU/mL [facility] 1 Comment: Less than 0.1 IU/mL: Below detection limit >/= 0.1 IU/mL:Above detection limit but below 0.5 IU/mL >/= 0.5 IU/mL: Equal to or above 0.5 IU/mL In humans, a result of 0.5 IU/mL or higher is considered an acceptable response to rabies vaccination according to the World Health Organization (WHO) guidelines; see WHO and Advisory committee on Immunization Practices documents for additional guidance. Also,there is more information at www.vet.[facility].edu/rabies. (Note: the symbol > means greater than and >/= means greater than or equal to ) Blood 12/14/2022 9:57 AM EST 12/15/2022 Narrative [facility] - 12/28/2022 3:05 PM EST Performed at: ??01 - [facility] [address] [place] [address] ??[id number] Staff Development Educator: Liang Robles MD, Phone: ??[phone] Be Reno DO LAB BLOOD ORDERAB LES Performing Organization Address [facility] Co de Phone Number [facility] * Testosterone, free, total (12/14/2022 9:57 AM EST) Testosterone 400 264 - 916 ng/dL [facility] 1 Comment: Adult male reference interval is based on a population of healthy nonobese males (BMI <30) between 19 and 39 years old. Lewis et.al. JCEM 2017,102;6809-8529. PMID: 61570216. Free Testosterone(Dire ct) 10.4 8.7 - 25.1 pg/mL [facility] 1 Blood 12/14/2022 9:57 AM EST 12/15/2022 Narrative [facility] - 12/16/2022 8:35 AM EST Performed at: ??01 - [facility] [address] ??[id number] Staff Development Educator: Ellie Garcia MD, Phone: ??[phone] Be Reno DO LAB BLOOD ORDERAB LES Performing Organization Address [facility]/ZIP Co de Phone Number [facility] * (ABNORMAL) Hemoglobin A1c (12/14/2022 9:57 AM EST) Glycohemoglobin A1C 5.9(H) 4.8 - 5.6 % [facility] 1 Comment: ? Prediabetes: 5.7 - 6.4 ? Diabetes: >6.4 ? Glycemic control for adults with diabetes: <7.0 Blood 12/14/2022 9:57 AM EST 12/15/2022 Narrative [facility] - 12/15/2022 8:35 AM EST Performed at: ??01 - [facility] [address] ??[id number] Staff Development Educator: Ellie Garcia MD, Phone: ??[phone] Be Reno DO LAB BLOOD ORDERAB LES Performing Organization Address [facility] Co de Phone Number [facility] * (ABNORMAL) Lipid panel (12/14/2022 9:57 AM EST) Pathologist [facility] Cholesterol, Total 198 100 - 199 mg/dL [facility] 1 Triglycerides 77 0 - 149 mg/dL [facility] 1 HDL Cholesterol 50 >39 mg/dL [facility] 1 VLDL 14 5 - 40 mg/dL [facility] 1 LDL Cholesterol Calc 134(H) 0 - 99 mg/dL [facility] 1 Blood 12/14/2022 9:57 AM EST 12/15/2022 Narrative [facility] - 12/15/2022 1:05 PM EST Performed at: ??01 - [facility] [address] ??[id number] Staff Development Educator: Ellie Garcia MD, Phone: ??[phone] Be Reno DO LAB BLOOD ORDERAB LES Performing Organization Address [facility] Co de Phone Number [facility] 1 * TSH (12/14/2022 9:57 AM EST) Pathologist [facility] TSH 2.150 0.450 - 4.500 uIU/mL [facility] 1 Blood 12/14/2022 9:57 AM EST 12/15/2022 Narrative [facility] - 12/15/2022 1:05 PM EST Performed at: ??01 - [facility] [address] ??[id number] Staff Development Educator: Ellie Garcia MD, Phone: ??[phone] Be Reno DO LAB BLOOD ORDERAB LES [facility] * (ABNORMAL) Comprehensive metabolic panel(CMP) (12/14/2022 9:57 AM EST) Glucose 92 70 - 99 mg/dL [facility] 1 BUN 21(H) 6 - 20 mg/dL [facility] 1 Creatinine 1.25 0.76 - 1.27 mg/dL [facility] 1 eGFR (CKD-EPI ) 79 >59 mL/min/1.7 3 [facility] 1 BUN/Creatinine Ratio 17 9 - 20 [facility] 1 Sodium 142 134 - 144 mmol/L [facility] 1 Potassium 4.6 3.5 - 5.2 mmol/L [facility] 1 Chloride 103 96 - 106 mmol/L [facility] 1 Carbon Dioxide 26 20 - 29 mmol/L [facility] 1 Calcium 9.6 8.7 - 10.2 mg/dL [facility] 1 Protein, Total 7.0 6.0 - 8.5 g/dL [facility] 1 Albumin 4.7 4.1 - 5.2 g/dL [facility] 1 Globulin 2.3 1.5 - 4.5 g/dL [facility] 1 A/G Ratio 2.0 1.2 - 2.2 [facility] 1 Total Bilirubin 0.3 0.0 - 1.2 mg/dL [facility] 1 Alkaline Phosphatase 70 44 - 121 IU/L [facility] 1 AST (SGOT) 21 0 - 40 IU/L [facility] 1 ALT (SGPT) 27 0 - 44 IU/L [facility] 1 Blood 12/14/2022 9:57 AM EST 12/15/2022 Narrative [facility] - 12/15/2022 1:05 PM EST Performed at: ??01 - [facility] [address] ??[id number] Staff Development Educator: Ellie Garcia MD, Phone: ??[phone] Be Reno DO LAB BLOOD ORDERAB LES [facility] * CBC with Auto Differential (12/14/2022 9:57 AM EST) WBC 5.4 3.4 - 10.8 x10E3/uL [facility] 1 RBC 5.58 4.14 - 5.80 x10E6/uL [facility] 1 Hemoglobin 15.0 13.0 - 17.7 g/dL [facility] 1 Hematocrit 45.8 37.5 - 51.0 % [facility] 1 MCV 82 79 - 97 fL [facility] 1 MCH 26.9 26.6 - 33.0 pg [facility] 1 MCHC 32.8 31.5 - 35.7 g/dL [facility] 1 RDW 13.3 11.6 - 15.4 % [facility] 1 Platelet Count 238 150 - 450 x10E3/uL [facility] 1 Neutrophils 57 Not Estab. % [facility] 1 Lymphocytes 31 Not Estab. % [facility] 1 Monocytes 7 Not Estab. % [facility] 1 Eosinophils % Auto 4 Not Estab. % [facility] 1 Basophils 1 Not Estab. % [facility] 1 Neutrophils Absolute 3.1 1.4 - 7.0 x10E3/uL [facility] 1 Lymphocytes Absolute 1.6 0.7 - 3.1 x10E3/uL [facility] 1 Monocytes Absolute 0.4 0.1 - 0.9 x10E3/uL [facility] 1 Eosinophils Absolute 0.2 0.0 - 0.4 x10E3/uL [facility] 1 Basophils Absolute 0.0 0.0 - 0.2 x10E3/uL [facility] 1 Immature Granulocytes 0 Not Estab. % [facility] 1 Immature Granulocytes ABS 0.0 0.0 - 0.1 x10E3/uL [facility] 1 Blood 12/14/2022 9:57 AM EST 12/15/2022 Narrative [facility] - 12/15/2022 8:35 AM EST Performed at: ??01 - [facility] [address], [place], [place] ??[id number] Staff Development Educator: Ellie Garcia MD, Phone: ??[phone] Be Reno DO LAB BLOOD ORDERAB LES [facility] 1 documented in this encounter Visit Diagnoses Diagnosis Well adult exam- Primary Routine general medical examination at a health care facility Need for influenza vaccination Need for prophylactic vaccination and inoculation against influenza Fatigue, unspecified type Hair loss Unspecified alopecia Family history of diabetes mellitus Contact with or exposure to rabies Need for hepatitis C screening test Special screening examination for other specified viral diseases documented in this encounter Care Teams System Support Analyst Relationship Specialty Start Date End Date Be Reno DO [address] [place] [id number] PCP - General Family Medicine 12/14/22 documented as of this encounter
--- OUTSIDE RECORDS SUMMARY | 2024-11-12 16:15 | XMS_ITS | Encounter Summary ---
Author Organization [facility] Address [address] [facility] [address] [place] [address] Phone Care Team Providers Care Infantry Officer Name Role Phone Pcp, Stephanie RODRIGUEZ Primary Care Provider Unavailabl e Reason for Visit * Other Medical (Routine) - Closed Specialty Diagnoses / Procedures Referred By Christaine soto Referred To Contact Urology Diagnoses Vasectomy evaluation Procedures Vasectomy Augie Snowden MD [address] [facility] [address] [place] [address] Phone: tel: fax: [facility] [address] [facility] [place] [address] Phone: tel: fax: Referral ID Status Reason Start Date Expiration Date Visits Re quested Visits Authorized [id number] Closed 04/06/2021 10/03/2021 1 1 Encounter Details Date Type Department Care Team (Latest Contact Info) Description 07/01/2021 10:30 AM EDT Outside Procedure [facility] [address] [facility] [address] [place] [phone] Augie Snowden MD [address] [place] [address] Vasectomy evaluation Social History Tobacco Use Types Packs/Day Years [...] Procedure Name Priority Date/Time Associated Diagnosis Comments VASECTOMY Routine 07/05/2021 3:20 PM EDT Vasectomy evaluation documented in this encounter Results * Vasectomy (07/05/2021 3:20 PM EDT) Augie Snowden MD PROCEDURE ORDERABLES Final Re sult documented in this encounter Visit Diagnoses Diagnosis Vasectomy evaluation Other general counseling and advice for contraceptive management documented in this encounter Care Teams Infantry Officer Relationship Specialty Start Date End Date PcpStephanie MD PCP - General 04/06/21 documented as of this encounter
== END 2024-11-05 17:04 | disposition home or self-care (01) ==
PROVIDERS: Emergency Provider Emergency Medicine
DX: H53.9 Unspecified visual disturbance (principal)
CPT/HCPCS: 70450; 99284